=== PATIENT | male | born 1980 | race Caucasian/White ===

== ENCOUNTER 2021-01-07 12:53 | Outpatient (REF) | payer BC, SELFPAY ==
[2021-01-07 16:12] LABS: ALT 68 U/L (16-63); AST 24 U/L (15-37); Albumin 4.4 g/dL (3.4-5.0); Alkaline Phosphatase 53 U/L (46-116); Anion Gap 1.5 mmol/L (3-11); BUN 19 mg/dL (7-18); Bilirubin, Total 0.4 mg/dL (0.2-1.0); CO2 23.5 mmol/L (21.0-32.0); CREATININE 1.3 mg/dL (0.70-1.30); Calcium 9.1 mg/dL (8.5-10.1); Calculated LDL 137 mg/dL (<100); Chloride 105 mmol/L (98-107); Cholesterol 214 mg/dL (<200); Glucose 120 mg/dL (74-106); HDL Cholesterol 45 mg/dL (40-60); Potassium 4.2 mmol/L (3.5-5.1); Sodium 130 mmol/L (136-145); Total Protein 7.3 g/dL (6.4-8.2); Triglyceride 163 mg/dL (<150)
== END 2021-01-07 12:54 | disposition home or self-care (01) ==
LOC: NCHCN 12:53
PROVIDERS: PCP Nurse Practitioner Family; Visit Provider Nurse Practitioner
DX: Z00.00 Encounter for general adult medical examination without abnormal findings (principal); R51.9 Headache, unspecified; Z83.3 Family history of diabetes mellitus; Z13.220 Encounter for screening for lipoid disorders
CPT/HCPCS: 80053; 80061

== ENCOUNTER 2021-01-09 03:36 | Outpatient (CLI) | payer BC, SELFPAY ==
--- NOTE | 2021-01-09 09:30 | DI.CT_ITS ---
EXAM: CT HEAD WO CLINICAL HISTORY: HEADACHE,R51.9. TECHNIQUE: Imaging Protocol: Axial computed tomography images with coronal and sagittal reformatted images were created and reviewed COMPARISON: No exams were available for comparison FINDINGS: There is a prominent cisterna magna versus posterior fossa arachnoid cyst. No gross mass effect iden tified. The ventricular system is normal in appearance. No evidence of acute intracranial hemorrhage, mass effect, or midline shift. The orbital structures are unremarkable. The temporal bone structures appear intact. Calvarium: Normal. Visualized Paranasal sinuses/Mastoids: Clear. IMPRESSION: No evidence of acute intracranial process. 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 RADIATION DOSE DELIVERED: 926.35mGy.cm Total DLP 926.35mGy.cm Total DLP DATA REPOSITORY: All CT scans at this facility are submitted to the National Radiology Data Registry (NRDR) Dose Index Registry (DIR) with the [employer] (ACR). RADIATION OPTIMIZATION: All CT scans at this facility use at least one of these dose optimization te chniques: automated exposure control; mA and/or kV adjustment per patient size (includes targeted exa ms where dose is matched to clinical indication); or iterative reconstruction.
== END 2021-01-09 03:56 ==
PROVIDERS: PCP Nurse Practitioner Family; Visit Provider Nurse Practitioner
DX: R51.9 Headache, unspecified (principal)
CPT/HCPCS: 70450

== ENCOUNTER 2022-08-17 13:50 | Outpatient (REF) | payer BC, SELFPAY ==
[2022-08-19 10:49] LABS: Acrosom Defect 27.5 %; Appearance Normal; Container Type 50 mL Conical; Double Forms 1.5 %; Motile/Ejaculate 92.9 x10(6) (>=9.0); Motile/mL 185.8 x10(6) (>=6.0); Motility 62 % (>=40); Semen Volume 0.5 mL (>=1.5); Sperm/mL 299.7 x10(6) (>=15.0); Strict Morph NL 5.5 % (>=4.0); Study Type Semen; Tail Defect 20.5 %
== END 2022-08-17 13:51 | disposition home or self-care (01) ==
LOC: LBN 13:50
PROVIDERS: PCP Nurse Practitioner Family; Visit Provider Obstetrics & Gynecology Gynecology
DX: Z31.49 Encounter for other procreative investigation and testing (principal)
CPT/HCPCS: 89240; 89310

== ENCOUNTER 2023-05-16 23:37 | Emergency (ER) | payer BC, SELFPAY ==
[2023-05-16 23:42] VITALS: BP 141/89; PULSE 87; RESP 16; TEMP 36.3; O2SAT 95
--- NOTE | 2023-05-17 00:30 | DI.CT_ITS ---
Exam(s) CT ABDOMEN PELVIS W EXAM: CT ABDOMEN PELVIS W CLINICAL HISTORY: GI bleed, LUQ abdominal pain TECHNIQUE: Imaging Protocol: Axial computed tomography images with coronal and sagittal reformatted images were created and reviewed CONTRAST MATERIAL: Intravenous: Omnipaque 350 Contrast volume:100 mL Oral: No COMPARISON: CT ABD PELVIS WITH CONTRAST from 05/27/2012 FINDINGS: ABDOMEN: Liver: There is diffuse fatty infiltration of the liver. There is a paddle megaly. No measurable ma ss. Portal, Superior Mesenteric, and Splenic Veins: Unremarkable. Gallbladder and Biliary Tract: No radiodense calculus or dilation. The gallbladder is contracted. Pancreas: Normal density, no abnormal calcifications or inflammatory process. Spleen: Normal. Adrenals: No masses seen. Kidneys: Normal size, contour and axis. No radiodense stones or obstructive uropathy. No masses seen. Abdominal Aorta: Abdominal portion non-dilated. Bowel: No obstruction or bowel wall thickening. Appendix is unremarkable. Peritoneal Cavity: No ascites, collection or mesenteric inflammatory response. No free air. Lymph Nodes: Within normal limits. Bones: Within normal limits for the patient's age. Soft Tissues: There is a small fat containing umbilical hernia and a small fat containing left inguin al hernia. PELVIS: Bladder: Symmetric distention, no gross wall thickening. Reproductive Organs: Unremarkable as visualized. Lymph Nodes: Within normal limits. Bones: Within normal limits for the patient's age. IMPRESSION: No acute abdominal or pelvic process. RADIATION DOSE DELIVERED: 1,383.91mGy.cm Total DLP DATA REPOSITORY: All CT scans at this facility are submitted to the National Radiology Data Registry (NRDR) Dose Index Registry (DIR) with the [employer] (ACR). RADIATION OPTIMIZATION: All CT scans at this facility use at least one of these dose optimization te chniques: automated exposure control; mA and/or kV adjustment per patient size (includes targeted exa ms where dose is matched to clinical indication); or iterative reconstruction.
--- NOTE | 2023-05-17 00:45 | W.ED.GENAD ---
Discharge Plan Disposition Patient Disposition: Home Discharge Details Clinical Impression: Gastrointestinal bleeding, lower, Abdominal pain not caused by trauma Primary Care Provider: Silvia Todd ED Provider: Aundrea Abrams Home Meds and New Rx's Prescriptions: New omeprazole 40 mg capsule,delayed release(DR/EC) 40 mg PO DAILY Qty: 30 0RF Discontinued ibuprofen 800 MG tablet 800 mg PO TID Qty: 30 0RF Discharge Instructions Instructions: Gastrointestinal Bleeding (ED), Abdominal Pain (ED) Additional Instructions: 1. Call your primary care provider for follow-up appointment and recheck. You should be contacted by general surgery to arrange follow-up for the gastrointestinal bleeding. 2. Avoid nonsteroidal anti-inflammatories such as ibuprofen. You can take low-dose acetaminophen as needed for pain but you had a mild elevation of one of your liver enzymes and history of not overuse acetaminophen and you should avoid alcohol. 3. Consider repeating the Monospot test if your symptoms persist. 4. Start omeprazole daily as directed. 5. Return here for any new or worrisome symptoms such as dizziness, chest pain, fever, chills, worsening abdominal pain or any concerns. Discharge Data Discharge Physician: Aundrea Abrams Medical Decision Making This is a 43-year-old male in good health who presents with 1 week of intermittent bright red blood per rectum that was painless. Today he developed left upper quadrant pain which is aggravated by deep inspiration though he is not short of breath. The patient certainly could have diverticulitis, other concerns are gastric ulcers, AV malformation or food ingestion that discolors the stool. He is hemodynamically stable. His pain is pleuritic. He denies drinking. He denies any other bleeding or bruising. He has not been short of breath although the pain is aggravated by deep inspiration. My plan is to establish an IV and hydrate him. I will check a CBC comprehensive metabolic panel and a Monospot test. I will obtain a CTA of the chest to rule out PE and a CT of the abdomen and pelvis with IV contrast to rule out diverticular disease or any additional symptoms. He is declining any medications for pain though I have already offered him IV acetaminophen. If his work-up is unremarkable we will have him follow-up with general surgery for colonoscopy. If he has evidence of diverticulitis we will treat him with antibiotics. I will monitor his vital signs for hypotension. The patient does not have a primary care provider and if he is discharged home we will refer him to primary care as well as general surgery Differential Diagnosis Differential Diagnosis: Diverticulitis, pulmonary embolus, mononucleosis, AV malformation, coagulop Medical Records Medical records reviewed: Yes I reviewed the patient's medical records. Imaging Data Radiologic Study: Imaging: CT Scan Radiologist's impression: CT chest, noncontrast. No acute findings. Radiologic Study #2: Imaging: CT Scan Radiologist's impression: CT abdomen and pelvis with IV contrast vRad impression no acute findings HPI General Date/Time Provider Initiated Documentation: 05/17/23 00:41. Information obtained by: patient. History of Present Illness with intensity rated at 6. HPI Narrative: Time seen was 12:30 AM in bed 7. The patient is a fairly healthy 43-year-old male with no past medical history who does not have a primary care provider and has not seen a doctor in 2 years. 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 He tells me that over the past week he has had intermittent bright red blood mixed with stool about 5 times. The rectal bleeding was painless and he thinks he has had about an ounce of blood with each episode. He denies any other bleeding such as epistaxis or bleeding of his gums. He denies any easy bruising. He is not on any anticoagulants. This morning at about 8 AM he began having left upper quadrant abdominal pain which she describes as 6/10 in severity and aggravated by deep inspiration. He does have a history of environmental allergies and has been taking Monica. He tells me he has been taking it twice a day instead of once a day. He has no prior history of abdominal surgeries. He has never had a colonoscopy. His pain is aggravated by deep inspiration but he denies any shortness of breath or chest pain. No previous similar episodes. He has not taken any medication for the pain. He denies any trauma. No fevers or chills. No shortness of breath. No leg pain no leg swelling. Related Data Home Medications Medication Instructions Recorded Confirmed omeprazole 40 mg capsule,delayed 40 mg PO DAILY #30 caps 05/17/23 release Previous Rx's Medication Instructions Recorded omeprazole 40 mg capsule,delayed 40 mg PO DAILY #30 caps 05/17/23 release Allergies Allergy/AdvReac Type Severity Reaction Status Date / Time Sulfa (Sulfonamide Allergy Severe Hives Unverified 05/16/23 23:47 Antibiotics) General Stated Complaint: Abd Prob MARCO: 3 Review of Systems Narrative: see hpi PFSH All Active Problems (Updated 05/17/23 @ 03:06 by Aundrea Abrams MD) Gastrointestinal bleeding, lower (Acute) Abdominal pain not caused by trauma (Acute) Patient desires (Acute) Social History Smoking/Tobacco Use Status: Never Smoking risk assessment performed?: Yes Alcohol Intake: never Drug use: Never Substance use type: marijuana Do you feel safe at home: Yes Do you feel safe in your relationship?: Yes Exam Const General: cooperative, healthy appearing, comfortable, no acute distress, well developed, well groomed and well hydrated Nutritional Appearance: average body habitus and well nourished Orientation: alert, awake and oriented x3 HENMT Head: normal to inspection, normocephalic and atraumatic Ears: hearing grossly normal bilaterally and external ears normal General nose exam: external nose normal, nares normal and no nasal discharge Face and sinus: normal facial exam, sinuses nontender and face symmetric Mouth: oral mucosae normal, lip normal, tongue normal, oropharynx normal, moist mucous membranes and other (Normal phonation. The patient is handling secretions.) Throat: posterior oropharynx normal and uvula midline Other: There is a 3 cm smooth raised lesion on the right side of his tongue, which she states has been there for a year. There is no evidence of Arielle's angina or buccal cellulitis. Eyes General: appearance normal, both eyes and all related structures Eyelids: eyelids normal Conjunctivae: conjunctivae normal Sclera: sclerae normal Cornea: corneas normal Pupils: PERRL EOM: EOM intact bilaterally and No nystagmus Neck Neck: normal visual inspection, full ROM, no lymphadenopathy, no meningeal signs, trachea midline and supple Lymphatic: no lymphadenopathy noted Chest Chest: normal inspection of the chest Resp Effort & Inspection: normal respiratory effort, able to speak in complete sentences, no audible wheezes, no nasal flaring, no respiratory distress, no retractions, no stridor, not tachypneic, no tracheal deviation, no use of accessory muscles, No prolonged expiratory phase and other (Normal inspiratory to expiratory ratio.) Auscultation: clear to auscultation bilaterally, no rales, no rhonchi, no wheezes and no rubs Tactile Fremitus: tactile fremitus absent Cardio Jugular venous pressure: no JVD Palpation: normal PMI Rate: regular rate Rhythm: regular rhythm Heart Sounds: S1 normal, S2 normal, no gallops, no murmurs and no rubs GI Inspection: normal to inspection and non-distended Palpation: soft, no hepatosplenomegaly, no guarding and nontender Percussion: normal to percussion Auscultation: normal bowel sounds General: No CVA tenderness Other: Normal external genitalia. Testes are descended. No hernias. Back/Spine/Pelvis Back: no CVA tenderness and No back tenderness Cervical Spine: normal cervical lordosis, cervical ROM normal, No cervical muscular tenderness, No pain with cervical ROM, No cervical spinal tenderness and No step off deformity Thoracic/Lumbar Spine: thoracic and lumbar spine normal to inspection, No thoracic spinal tenderness and No lumbar spinal tenderness Pelvis: no pain with anterior-posterior compression and no pain with lateral compression Skin General skin exam: no rashes or lesions noted, turgor normal, no petechiae, no purpura and other (Skin is normal for ethnicity.) Lesions: no lesions Rashes: no rashes Trauma: no lacerations or abrasions Neuro General: patient alert, patient awake, patient oriented x3, moves all extremities, no meningeal signs, no focal motor deficits and CN's II-XI intact bilaterally Cranial Nerves: CN's II-XI intact bilaterally, PERRL, accommodation normal, EOM intact bilaterally, no nystagmus, facial strength normal, tongue midline, hearing normal and no nystagmus Cognition: normal cognition Speech: speech normal Gait: normal gait Motor: muscle tone normal throughout and strength 5/5 throughout Sensory Exam: no sensory deficits noted Extrem General: normal to inspection, full ROM, capillary refill normal, no clubbing, cyanosis or edema and no calf tenderness Psych Appearance: grossly normal Affect: normal affect Attitude: cooperative Thought Process: normal Thought Content: normal Insight: insight good Judgment: judgment good Other: The patient appears to have capacity make medical decisions. Course Reevaluation(s) Time: 03:01 Reevaluation: The patient was sleeping when I entered the room but feels improved. I discussed the results and advised him to follow-up with primary care and general surgery for the GI bleeding and with a dentist for the lesion on his tongue. I have advised him to avoid nonsteroidal anti-inflammatories and to take acetaminophen but not to take it excessively because his mild elevation of his ALT at 78 which may be normal for him Vital Signs Vital signs: Vital Signs Temperature 36.3 C L 05/16/23 23:42 Pulse 87 05/16/23 23:42 Respiratory Rate 16 05/16/23 23:42 Blood Pressure 141/89 H 05/16/23 23:42 Pulse Oximetry 95 05/16/23 23:42 Temperature 36.3 C L 05/16/23 23:42 Temperature Source Temporal Artery Scan 05/16/23 23:42 Pulse 87 05/16/23 23:42 Respiratory Rate 16 05/16/23 23:42 Respiratory Effort Normal, Non-Labored 05/16/23 23:48 Blood Pressure 141/89 H 05/16/23 23:42 Blood Pressure Position Sitting 05/16/23 23:42 Pulse Oximetry 95 05/16/23 23:42 Oxygen Delivery Method Room Air 05/16/23 23:42 Oxygen Flow Rate 0 05/16/23 23:42 Pain Level 6 05/16/23 23:42 Lab/Test Results Lab/Test Results: Mild elevation of glucose slight elevation of ALT. Normal H&H
--- NOTE | 2023-05-17 00:49 | DI.CT_ITS ---
Exam(s) CT CHEST WO EXAM: CT CHEST WO CLINICAL HISTORY: Pleuritic LUQ abdominal pain, GI bleed. TECHNIQUE: Imaging protocol: Axial computed tomography images were obtained and coronal and sagittal reformatted images were created and reviewed. COMPARISON: CT ABD PELVIS WITH CONTRAST from 05/27/2012 FINDINGS: Tracheobronchial tree: Patent where visualized. Pulmonary parenchyma: No consolidation or dominant measurable mass. No architectural distortion. Ther e is a 6 mm pleural based nodule in the lateral aspect of the left lower lobe. Mediastinum and Bri: No dominant adenopathy or fluid collection. The esophagus is unremarkable. Thyroid gland: Unremarkable. Pleura: No effusion or pneumothorax. Heart: The heart is not dilated. No coronary artery calcifications are seen. No pericardial effusion. Aorta: Thoracic aorta non-dilated. Upper abdomen: There is diffuse fatty infiltration of the liver. Lymph nodes: Within normal limits. Soft tissues: Unremarkable. Bones:Within normal limits for the patient's age. IMPRESSION: 1. No acute pulmonary process. 2. 6 mm pleural based nodule in the left lower lobe. In low risk patients, follow-up CT scan in 6-12 months is recommended. 3. In high risk patients (history of smoking or other risk factors), initial follow-up examination in 6-12 months and again in 18-24 months is recommended. (Shahzad et al, 2017). RADIATION DOSE DELIVERED: 595.53mGy.cm Total DLP 595.53mGy.cm Total DLP DATA REPOSITORY: All CT scans at this facility are submitted to the National Radiology Data Registry (NRDR) Dose Index Registry (DIR) with the [employer] (ACR). RADIATION OPTIMIZATION: All CT scans at this facility use at least one of these dose optimization te chniques: automated exposure control; mA and/or kV adjustment per patient size (includes targeted exa ms where dose is matched to clinical indication); or iterative reconstruction.
[2023-05-17 00:57] LABS: Lactate 1.1 mmol/L (0.6-1.4)
[2023-05-17 00:59] LABS: Abs Immature Grans 0.03 10^3/uL (0.0-0.06); Absolute Basophil Count 0.05 10^3/uL (0.0-0.2); Absolute Eosinophil Count 0.38 10^3/uL (0.0-0.7); Absolute Lymphocyte Count 3.85 10^3/uL (1.2-3.4); Absolute Monocyte Count 0.49 10^3/uL (0.1-0.8); Absolute Neutrophil Count 4.37 10^3/uL (1.2-6.7); Basophils % 0.5; Eosinophils % 4.1; HCT 42.6 % (40.0-50.0); HGB 14.5 g/dL (13.5-17.5); Immature Grans % 0.3; MCH 30.2 pg (27.0-33.0); MCV 89 fL (80-95); MPV 9.9 fL (8.0-11.0); Monocytes % 5.3; Neutrophils % 47.8; Platelet Count 265 10^3/uL (130-400); RDW 12.8 % (11.8-14.1); RDW-SD 41.5 fL; WBC 9.17 10^3/uL (4.4-10.8)
[2023-05-17] MEDS: Lactated Ringers 1,000 ML 125 ML IV (01:10)
[2023-05-17 01:12] LABS: INR 1.1 (0.9-1.1); Mono Screening Negative (Negative); Prothrombin Time 10.7 sec (9.3-11.0)
[2023-05-17 01:17] LABS: ALT 78 U/L (16-63); AST 33 U/L (15-37); Albumin 3.9 g/dL (3.4-5.0); Alkaline Phosphatase 59 U/L (46-116); BUN 16 mg/dL (7-18); Bilirubin, Total 0.4 mg/dL (0.2-1.0); CREATININE 1.3 mg/dL (0.70-1.30); Calcium 8.8 mg/dL (8.5-10.1); Chloride 103 mmol/L (98-107); Glucose 129 mg/dL (74-106); Lipase 47 U/L (16-77); Magnesium 2.1 mg/dL (1.8-2.4); Potassium 3.5 mmol/L (3.5-5.1); Sodium 138 mmol/L (136-145); Total Protein 6.9 g/dL (6.4-8.2); Troponin I < 50 ng/L (<or=60)
[2023-05-17] MEDS: Omnipaque 350 MG/ML 100 ML BTL IJ (01:21)
[2023-05-17] MEDS: Normal Saline Flush 10 ML SYR IVP (01:21)
[2023-05-17] MEDS: Normal Saline - Diluent 50 ML VIAL IJ (01:22)
[2023-05-17 01:24] LABS: Bilirubin Negative (Negative); Blood Negative (Negative); Clarity Clear (Clear); Glucose Negative (Negative); Ketones Negative (Negative); Leukocyte Esterase Negative (Negative); Nitrite Negative (Negative); Specific Gravity 1.015 (1.005-1.025); Urobilinogen 0.2 mg/dL (Up to 0.2)
--- NOTE | 2023-05-17 02:17 | DI.VRAD_ITS ---
PROCEDURE INFORMATION: Exam: CT Abdomen And Pelvis With Contrast Exam date and time: 05/17/2023 1:25 AM Age: 43 years old Clinical indication: Localized; Left upper quadrant (luq); Patient HX: Gi bleed, luq abdominal pain TECHNIQUE: Imaging protocol: Computed tomography of the abdomen and pelvis with contrast. Radiation optimization: All CT scans at this facility use at least one of these dose optimization techniques: automated exposure control; mA and/or kV adjustment per patient size (includes targeted exams where dose is matched to clinical indication); or iterative reconstruction. Contrast material: OMNIPAQUE 350; Contrast volume: 100 ml; Contrast route: INTRAVENOUS (IV); COMPARISON: No relevant prior studies available. FINDINGS: Liver: Hepatic steatosis. Gallbladder and bile ducts: Normal. No calcified stones. No ductal dilation. Pancreas: Normal. No ductal dilation. Spleen: Normal. No splenomegaly. Adrenal glands: Normal. No mass. Kidneys and ureters: Normal. No hydronephrosis. Stomach and bowel: Unremarkable. No obstruction. No mucosal thickening. Appendix: No evidence of appendicitis. Intraperitoneal space: Unremarkable. No free air. No significant fluid collection. Vasculature: Unremarkable. No abdominal aortic aneurysm. Lymph nodes: Unremarkable. No enlarged lymph nodes. Urinary bladder: Unremarkable as visualized. Reproductive: Unremarkable as visualized. Bones/joints: Unremarkable. No acute fracture. Soft tissues: Unremarkable. IMPRESSION: No acute finding. Dictated and Authenticated by: Greg Robles MD. Ordering:AL Guillaume MD
--- NOTE | 2023-05-17 02:19 | DI.VRAD_ITS ---
PROCEDURE INFORMATION: Exam: CT Chest Without Contrast; Diagnostic Exam date and time: 05/17/2023 1:48 AM Age: 43 years old Clinical indication: Left-sided; Patient HX: Pleuritic luq abdominal pain, gi bleed TECHNIQUE: Imaging protocol: Diagnostic computed tomography of the chest without contrast. 3D rendering (Not supervised by radiologist): MIP and/or 3D reconstructed images were created by the technologist. Radiation optimization: All CT scans at this facility use at least one of these dose optimization techniques: automated exposure control; mA and/or kV adjustment per patient size (includes targeted exams where dose is matched to clinical indication); or iterative reconstruction. COMPARISON: CT ABDOMEN PELVIS W 05/17/2023 1:25 AM FINDINGS: Lungs: Unremarkable. No consolidation. No masses. Pleural spaces: Unremarkable. No pneumothorax. No pleural effusion. Heart: Unremarkable. No cardiomegaly. No pericardial effusion. Lymph nodes: Unremarkable. No enlarged lymph nodes. Vasculature: Unremarkable. No aortic aneurysm. Liver: Hepatic steatosis. Spleen: Splenomegaly, clinically correlate. Bones/joints: Unremarkable. No acute fracture. Soft tissues: Unremarkable. IMPRESSION: No acute findings. Dictated and Authenticated by: Greg Robles MD. Ordering:AL Guillaume MD
[2023-05-17 03:18] VITALS: BP 138/84; PULSE 82; RESP 16; O2SAT 96
--- NOTE | 2023-05-17 03:18 | NUR.NOTE ---
Referral faxed to [facility] and patients pcp Silvia Todd for abd pain/gi bleed follow up.Nursing Note:
== END 2023-05-17 03:19 | disposition home or self-care (01) ==
PROVIDERS: Emergency Provider Emergency Medicine Emergency Medical Services; PCP Nurse Practitioner Family
DX: K92.2 Gastrointestinal hemorrhage, unspecified (principal); R10.12 Left upper quadrant pain
CPT/HCPCS: 36415; 71250; 80053; 83690; 96360; 96361; 99285; 74177; 81003; 83605; 83735; 84484; 85025; 85610; 86308; 99284; J3490

== ENCOUNTER 2023-06-30 12:49 | Outpatient (REF) | payer BC, SELFPAY ==
--- NOTE | 2023-06-30 12:05 | TONG_PTH ---
PATIENT: Praful Perez LOC: [facility] U#:[id number] AGE/SX: 43/M ROOM: RE06/30/[address]: Lisa Flower : 1980 BED: DIS: 06/30/2023 SPEC #: [id number] RECD: 06/30/23 16:38 STATUS: SAIDA LAMAR #: [id number] SREEDHAR: 06/30/23 12:[address]: Lisa Flower DEPT: Surgical Specimen RECD BY: Chloé Franco ENTERED: 06/30/23 16:39 SP TYPE: GARY CARBAJAL DR: GARFIELD TORRES NP Tissues: 1 - TONGUE BIOPSY Procedures: GROSS AND MICRO LEVEL 4 SPECIAL STAIN 1 Comments: [id number]
== END 2023-06-30 12:50 | disposition home or self-care (01) ==
LOC: LBN 12:49
PROVIDERS: PCP Nurse Practitioner Family; Visit Provider Registered Nurse Maternal Newborn
DX: D10.1 Benign neoplasm of tongue (principal); K14.0 Glossitis
CPT/HCPCS: 88305; 88312

== ENCOUNTER 2023-11-29 14:37 | Outpatient (REF) | payer BC, SELFPAY ==
[2023-11-29 19:19] LABS: HCT 46.4 % (40.0-50.0); HGB 15.6 g/dL (13.5-17.5); MCH 29.7 pg (27.0-33.0); MCHC 33.6 % (32.0-36.0); MCV 88 fL (80-95); MPV 10.5 fL (8.0-11.0); Platelet Count 268 10^3/uL (130-400); RBC 5.25 10^6/uL (4.36-5.78); RDW-SD 42.2 fL; WBC 6.55 10^3/uL (4.4-10.8)
[2023-11-29 19:28] LABS: ALT 115 U/L (16-63); AST 70 U/L (15-37); Albumin 4.2 g/dL (3.4-5.0); Alkaline Phosphatase 68 U/L (46-116); BUN 20 mg/dL (7-18); Bilirubin, Total 0.3 mg/dL (0.2-1.0); CREATININE 1.2 mg/dL (0.70-1.30); Calcium 9.4 mg/dL (8.5-10.1); Calculated LDL 156 mg/dL (<100); Chloride 105 mmol/L (98-107); Cholesterol 231 mg/dL (<200); Estimated GFR 76.95 (mL/min/1.73m2); Glucose 162 mg/dL (74-106); HDL Cholesterol 46 mg/dL (40-60); Potassium 4.3 mmol/L (3.5-5.1); Sodium 140 mmol/L (136-145); Total Protein 7.6 g/dL (6.4-8.2); Triglyceride 145 mg/dL (<150)
[2023-11-29 19:41] LABS: Hemoglobin A1C 6.7 % (<5.7)
== END 2023-11-29 14:38 | disposition home or self-care (01) ==
LOC: NCHCN 14:37
PROVIDERS: PCP Nurse Practitioner Family; Visit Provider Nurse Practitioner Family
DX: Z00.00 Encounter for general adult medical examination without abnormal findings (principal); E78.5 Hyperlipidemia, unspecified; R73.9 Hyperglycemia, unspecified; E66.8 Other obesity; Z68.37 Body mass index [BMI] 37.0-37.9, adult
CPT/HCPCS: 80053; 80061; 85027; 83036

== ENCOUNTER 2024-04-17 14:26 | Outpatient (CLI) | payer BC, SELFPAY ==
--- NOTE | 2024-04-17 14:15 | RT.EKG_ITS ---
APPROVED REPORT Exam: Resting ECG Reason for Exam: chest discomfort Patient Location: O HR:74 bpm ECG Measurements Heart Rate 74 AXIS IA 121 P 13 QRSd 91 QRS 55 QT 373 T 46 QTc 414 Conclusion Sinus rhythm...normal P axis, V-rate 50- 99 Inferolateral infarct, acute...ST>.10mV, inf-lat leads Borderline ST elevation, anterior leads...ST >0.15mV in V1-V4
== END 2024-04-17 14:27 | disposition home or self-care (01) ==
LOC: DI.CM 14:27
PROVIDERS: PCP Nurse Practitioner Family; Visit Provider Physician Assistant
DX: R07.89 Other chest pain (principal)
CPT/HCPCS: 93010

== ENCOUNTER 2024-04-17 15:11 | Inpatient (IN) | payer BC, SELFPAY ==
[2024-04-17] VITALS (63 sets, daily range): BP systolic 120–162; BP diastolic 54–102; PULSE 72–102; RESP 10–27; TEMP 37.1; O2SAT 91–98
--- NOTE | 2024-04-17 15:00 | RT.EKG_ITS ---
APPROVED REPORT Exam: Resting ECG Reason for Exam: chest pain Patient Location: E HR:83 bpm ECG Measurements Heart Rate 83 AXIS NV 118 P 28 QRSd 93 QRS 47 QT 355 T 34 QTc 410 Conclusion Sinus rhythm...normal P axis, V-rate 60- 99 Ventricular premature complex...V complex w/ short R-R interval Probable inferior infarct, acute...ST>0.10mV, II III aVF ST elevation, consider anterolateral injury...ST >0.15mV, I aVL V2-V6 PHysician: diffuse mild elevation without recip depression. Does not meet STEMI criterion
--- NOTE | 2024-04-17 15:00 | DI.RAD_ITS ---
Exam(s) XR PORTABLE CHEST AP EXAM: XR PORTABLE CHEST AP CLINICAL HISTORY: chest pain TECHNIQUE: 2D digital imaging was performed of the chest. One image was obtained. An AP view was ob tained. COMPARISON: CT CT CHEST WO from 05/17/2023 FINDINGS: MEDIASTINUM: Normal. HEART: Normal. PULMONARY VASCULATURE: Normal. LUNGS: Clear. PLEURAL SPACE: No pleural effusion or pneumothorax. BONE:Within normal limits for the patient's age. OTHER FINDINGS:Normal. IMPRESSION: No acute pulmonary findings. DATA REPOSITORY: RADIATION DOSE DELIVERED:
[2024-04-17 15:34] LABS: Abs Immature Grans 0.04 10^3/uL (0.0-0.06); Absolute Basophil Count 0.05 10^3/uL (0.0-0.2); Absolute Eosinophil Count 0.04 10^3/uL (0.0-0.7); Absolute Lymphocyte Count 1.37 10^3/uL (1.2-3.4); Absolute Monocyte Count 0.82 10^3/uL (0.1-0.8); Absolute Neutrophil Count 10.56 10^3/uL (1.2-6.7); Basophils % 0.4 %; Eosinophils % 0.3 %; HCT 43.4 % (40.0-50.0); HGB 14.9 g/dL (13.5-17.5); Immature Grans % 0.3 %; Lymphocytes % 10.6 %; MCH 29.8 pg (27.0-33.0); MCHC 34.3 % (32.0-36.0); MCV 87 fL (80-95); MPV 9.9 fL (8.0-11.0); Monocytes % 6.4 %; Platelet Count 361 10^3/uL (130-400); RDW 12.5 % (11.8-14.1); RDW-SD 39.8 fL; WBC 12.88 10^3/uL (4.4-10.8)
[2024-04-17 15:46] LABS: INR 1.1 (0.9-1.1); PTT Activated 28.7 sec (23.6-32.8); Prothrombin Time 11.1 sec (9.1-11.1)
[2024-04-17 15:56] LABS: ESR 24 mm/hr (0-15)
[2024-04-17 16:02] LABS: ALT 38 U/L (16-63); AST 18 U/L (15-37); Albumin 3.5 g/dL (3.4-5.0); Alkaline Phosphatase 54 U/L (46-116); Anion Gap 11.2 mmol/L (3-11); BUN 18 mg/dL (7-18); Bilirubin, Total 0.57 mg/dL (0.2-1.0); CO2 22.8 mmol/L (21.0-32.0); CREATININE 1.3 mg/dL (0.70-1.30); Calcium 8.9 mg/dL (8.5-10.1); Chloride 103 mmol/L (98-107); Glucose 161 mg/dL (74-106); NT-proBNP 86 pg/mL (<300); Potassium 3.7 mmol/L (3.5-5.1); Sodium 137 mmol/L (136-145); Troponin I < 50 ng/L (< or =60)
[2024-04-17 16:10] LABS: C-Reactive Protein 3.36 mg/dL (<or=0.5)
[2024-04-17] MEDS: ACETAMINOPHEN 1,000 MG/100 ML BTL 400 MG IVPB (16:19)
[2024-04-17] MEDS: Ondansetron 4 MG/2 ML VIAL (16:19)
[2024-04-17] MEDS: MORPHine 4 MG/ML SYR IVP (16:19)
[2024-04-17 16:25] LABS: COVID-19 PCR Negative (Negative); Influenza A PCR Negative (Negative); Influenza B PCR Negative (Negative); RSV PCR Negative (Negative)
[2024-04-17 16:27] LABS: Source Nasopharynx
[2024-04-17] MEDS: diphenhydrAMINE 50 MG/ML VIAL (16:28)
[2024-04-17] MEDS: Loratidine 10 MG TAB PO (16:59)
--- NOTE | 2024-04-17 17:45 | RT.EKG_ITS ---
APPROVED REPORT Exam: Resting ECG Reason for Exam: chest pain Patient Location: E HR:81 bpm ECG Measurements Heart Rate 81 AXIS [place] 114 P 28 QRSd 92 QRS 50 QT 366 T 34 QTc 424 Conclusion Sinus rhythm...normal P axis, V-rate 60- 99 Inferolateral infarct, acute...ST>.10mV, inf-lat leads Borderline ST elevation, anterior leads...ST >0.15mV in V1-V4 Phyician: diffuse st elevation without recip st depressions. Does not meet STEMI criterion
--- NOTE | 2024-04-17 17:50 | W.ED.GENAD ---
Discharge Plan Disposition Patient Disposition: Admit to [facility] Condition: Stable Discharge Details Chief Complaint: Chest Pain Clinical Impression: Pericarditis in diseases classified elsewhere, Pleuritic chest pain Admit Date/Time: 04/17/24 19:58 Admit Provider: Porter Story Attending Provider: Porter Story Primary Care Provider: GARFIELD TORRES ED Provider: Arsenio John Discharge Data Discharge Date/Time-TO BE ENTERED AT DEPARTURE: 04/17/24 21:27 HPI General Date/Time Provider Initiated Documentation: 04/17/24 15:25. HPI Narrative: 43-year-old male with a past medical history of intermittent anxiety and panic attacks, presents today for evaluation of chest pain. Patient states that about 1.5 weeks ago he had a notable episode of vomiting and a viral illness. That eventually got better, and then 4 days ago on Tuesday he developed central chest tightness and achy sensation. It eventually got better on its own without any significant intervention after lasting about a day. Symptoms then returned this morning at 7 AM. He had gone down to let the dog out, walk back up the stairs and then noticed the pain. Pain continued throughout the morning and he went to the primary care office. While there an EKG was done which was read as STEMI. EMS was called and the patient was brought to the ER for further assessment. He was given 325 aspirin and route. Currently he describes it as a heavy aching sensation in his central chest with shortness of breath, he denies any pleuritic component. He denies any history of PEs. He denies any tearing or ripping sensation. He denies fever or chills. Pain is not improved with sitting up or leaning forward. He did not take any medication for the pain. Denies PE risk factors such as recent long car rides, immobilization, recent surgery, prior history of DVT or PE, family history of PE or DVT, morbid obesity, exogenous estrogen and smoking, hemoptysis, history of cancer. He does not smoke. No history of diabetes or hypertension. No other complaints at this time. Related Data Home Medications Medication Instructions Recorded Confirmed cetirizine 10 mg tablet 10 mg PO DAILY PRN 06/29/23 04/17/24 Allergies Allergy/AdvReac Type Severity Reaction Status Date / Time Sulfa (Sulfonamide Allergy Severe Hives Unverified 04/17/24 16:28 Antibiotics) morphine Allergy Mild Hives Verified 04/17/24 16:28 Penicillins Allergy Hives Verified 04/17/24 16:28 General Stated Complaint: Chest Pain MARCO: 2 Review of Systems All systems reviewed & are unremarkable except as noted in HPI and below Exam Narrative Exam Narrative: 1.Const: Well-nourished, Well-developed, appearing stated age 2.Eyes: PERRL, no conjunctival injection, and symmetrical lids. 3.ENT: Atraumatic external nose and ears. Dry MM. Neck: Symmetric, trachea midline, No thyromegaly. 4.CVS: +S1/S2, No murmurs or gallops. Peripheral pulses 2+ and equal in all extremities. Brisk capillary refill in all extremities. 5.RESP: Unlabored respiratory effort. Clear to auscultation bilaterally. No wheezes rales or rhonchi. No significant reproducible component on palpation of the anterior chest wall. No signs of shingles 6.GI: Soft, Nontender/Nondistended, No hepatosplenomegaly. No guarding or rebound. 7.MSK: Normocephalic/Atraumatic, Extremities w/o deformity or ttp No cyanosis or clubbing, Normal movement of all extremities 8.Skin: Warm, Dry. No rashes or lesions. 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 Sensation grossly intact, no focal neurologic deficits. 10.Psych: (AAO) x3. Appropriate mood and affect Course Vital Signs Vital signs: Vital Signs Temperature 37.1 C 04/17/24 15:13 Pulse 84 04/17/24 15:13 Respiratory Rate 19 04/17/24 15:13 Blood Pressure 154/54 H 04/17/24 15:13 Pulse Oximetry 98 04/17/24 15:13 Temperature 37.1 C 04/17/24 15:13 Temperature Source Tympanic 04/17/24 15:13 Pulse 79 04/17/24 16:45 Pulse 86 04/17/24 16:50 Respiratory Rate 13 04/17/24 16:50 Respiratory Effort Short of Breath 04/17/24 15:23 Blood Pressure 142/93 H 04/17/24 16:45 Blood Pressure Mean 109 04/17/24 16:45 Pulse Oximetry 95 04/17/24 16:50 Oxygen Delivery Method Room Air 04/17/24 15:29 Oxygen Flow Rate 0 04/17/24 15:29 Pain Level 6 04/17/24 17:00 Lab/Test Results Lab/Test Results: Laboratory Tests Range/Units 04/17/24 04/17/24 04/17/24 15:25 15:25 15:44 WBC (4.4-10.8) 10^3/uL 12.88 H RBC (4.36-5.78) 10^6/uL 5.00 Hgb (13.5-17.5) g/dL 14.9 Hct (40.0-50.0) % 43.4 MCV (80-95) fL 87 MCH (27.0-33.0) pg 29.8 MCHC (32.0-36.0) % 34.3 RDW (11.8-14.1) % 12.5 Plt Count (130-400) 10^3/uL 361 MPV (8.0-11.0) fL 9.9 Immature Gran % % 0.3 Neutrophils % % 82.0 Lymphocytes % % 10.6 Monocytes % % 6.4 Eosinophils % % 0.3 Basophils % % 0.4 Nucleated RBC % (0.0-0.3) % 0.0 Absolute Neutrophils (1.2-6.7) 10^3/uL 10.56 H Absolute Lymphocytes (1.2-3.4) 10^3/uL 1.37 Absolute Monocytes (0.1-0.8) 10^3/uL 0.82 H Absolute Eosinophils (0.0-0.7) 10^3/uL 0.04 Absolute Basophils (0.0-0.2) 10^3/uL 0.05 ESR (0-15) mm/hr 24 H PT (9.1-11.1) sec 11.1 INR (0.9-1.1) 1.1 APTT (23.6-32.8) sec 28.7 Sodium (136-145) mmol/L 137 Potassium (3.5-5.1) mmol/L 3.7 Chloride (98-107) mmol/L 103 Carbon Dioxide (21.0-32.0) mmol/L 22.8 Anion Gap (3-11) mmol/L 11.2 H BUN (7-18) mg/dL 18 Creatinine (0.70-1.30) mg/dL 1.3 Est GFR (CKD-EPI 2020) (mL/min/1.73m2) 69.90 Glucose (74-106) mg/dL 161 H Calcium (8.5-10.1) mg/dL 8.9 Magnesium (1.8-2.4) mg/dL 2.0 Total Bilirubin (0.2-1.0) mg/dL 0.57 AST (15-37) U/L 18 ALT (16-63) U/L 38 Alkaline Phosphatase (46-116) U/L 54 Troponin I (< or =60) ng/L < 50 C-Reactive Protein (<or=0.5) mg/dL 3.36 H NT-Pro-B Natriuret Pep (<300) pg/mL 86 Cancelled Total Protein (6.4-8.2) g/dL 7.0 Albumin (3.4-5.0) g/dL 3.5 COVID-19 Source Nasopharynx SARS-CoV-2 (PCR) (Negative) Negative Influenza Type A (PCR) (Negative) Negative Influenza Type B (PCR) (Negative) Negative RSV (PCR) (Negative) Negative Medical Decision Making 43-year-old male with a past medical history of intermittent anxiety and panic attacks, presents today for evaluation of chest pain. Patient states that about 1.5 weeks ago he had a notable episode of vomiting and a viral illness. That eventually got better, and then 4 days ago on Tuesday he developed central chest tightness and achy sensation. It eventually got better on its own without any significant intervention after lasting about a day. Symptoms then returned this morning at 7 AM. He had gone down to let the dog out, walk back up the stairs and then noticed the pain. Pain continued throughout the morning and he went to the primary care office. While there an EKG was done which was read as STEMI. EMS was called and the patient was brought to the ER for further assessment. He was given 325 aspirin and route. Currently he describes it as a heavy aching sensation in his central chest with shortness of breath, he denies any pleuritic component. He denies any history of PEs. He denies any tearing or ripping sensation. He denies fever or chills. Pain is not improved with sitting up or leaning forward. He did not take any medication for the pain. Denies PE risk factors such as recent long car rides, immobilization, recent surgery, prior history of DVT or PE, family history of PE or DVT, morbid obesity, exogenous estrogen and smoking, hemoptysis, history of cancer. He does not smoke. No history of diabetes or hypertension. No other complaints at this time. Exam demonstrates well-appearing male, vital signs stable. Radial pulses +2 bilaterally. No pitting edema, no calf tenderness. EKG shows minimal elevation in 2, 3, and aVF, no reciprocal depression though. Mild diffuse elevation in the anterior leads as well without reciprocal depression. Timing and EKG findings are slightly atypical for STEMI. They appear more concerning for questionable pericarditis. No S1Q3T3. PE less likely. Symptoms appear inconsistent with dissection. Will treat with Tylenol, will avoid nitroglycerin secondary to the inferior components noted on EKG. We will get an x-ray, monitor closely and reassess. 7 PM Initial laboratory workup has returned, mild white count of 12, D-dimer normal with no suggestion of PE, ESR and CRP mildly elevated, bedside echo was performed demonstrates mild pericardial effusion measured at 1 cm. Troponin normal, repeat troponin normal. EKG remained stable, COVID flu and RSV negative. Chest x-ray negative for acute process. I contacted [facility] and discussed the case with Dr. Garrett, he is concerned that the patient's symptoms are indicative of pericarditis which I would agree. Symptoms at this time appear inconsistent with ACS or STEMI. Patient's recent illness a week ago certainly may have brought about a mild pericardial effusion and potential pericarditis. Patient was given Toradol and did have some mild relief, aspirin was also given. [facility] recommendations are for formal echo. No beds available for transfer at this time. Patient remains hemodynamically stable. No indication for heparinization at this time. Case was discussed with hospitalist Dr. Story, he agrees with the assessment and plan. Quality:SDOH Health Related Social Needs: No Data to Display PFSH All Active Problems (Updated 04/17/24 @ 23:59 by Arsenio John DO) Hyperglycemia without ketosis (Chronic) Pleuritic chest pain (Acute) Pericarditis in diseases classified elsewhere (Acute) Tongue lesion (Acute) Patient desires (Acute) Medical History Hematochezia Umbilical hernia Family history of diabetes mellitus Inguinal hernia, left Solitary lung nodule Tongue lump Seasonal allergies Rib pain Social History Smoking/Tobacco Use Status: Never Smoking risk assessment performed?: Yes Alcohol Intake: never Drug use: Never Substance use type: marijuana Housing: house Current gender identity: male Do you feel safe at home: Yes Do you feel safe in your relationship?: Yes
[2024-04-17] MEDS: Ketorolac 30 MG/ML VIAL IVP (18:10)
[2024-04-17 18:24] LABS: D-Dimer 452 ng/mlFEU (<500)
[2024-04-17 19:23] LABS: Troponin I < 50 ng/L (< or =60)
--- NOTE | 2024-04-17 19:55 | W.PM.HP.N ---
Date of service: 04/17/24 Time of Service: 19:55 Assessment and Plan Assessment and plan (1) Pericarditis in diseases classified elsewhere: Start date: 04/17/24 Status: Acute Assessment and plan: This is a 43-year-old gentleman presenting with pleuritic type sharp chest discomfort which is retrosternal and nonradiating. It is nonpositional but worse with exertion. He also has associated shortness of breath and nausea. He has a history of having similar chest pain but less severe with nausea associated with panic symptoms. He is not on any chronic medications for panic disorder. He does take Zyrtec for allergies. He did have a slight allergic reaction to morphine when in the ED which is a new allergy. He is having discomfort not controlled by ibuprofen or colchicine which is just being initiated. He will have a trial of fentanyl IV for pain management to make him comfortable for sleeping tonight. [facility] cardiology was consulted by the ED provider and recommended oral treatment for pericarditis and trending troponins with cardiac monitoring overnight. He was initiated on colchicine 0.6 mg twice daily which should be continued for 3 months and ibuprofen 800 mg 3 times a day which can be slowly weaned by 200 mg per dose over 2 weeks until he is having less pain. Echocardiogram will be performed the morning with small (1 cm) pericardial effusion seen on POCUS exam in the ED. There is no evidence of tamponade and his case of pericarditis, which may be secondary to a recent viral infection, appears to be mild with only mild elevations in WBC, CRP and sed rate and having no fever or positive troponins. EKG will be followed up in the morning. He is a full code. (2) Pleuritic chest pain: Start date: 04/17/24 Status: Acute Assessment and plan: This appears to be associate with acute pericarditis secondary to recent viral infection. Further investigations if not improving. Trend inflammatory markers. (3) Hyperglycemia without ketosis: Status: Chronic Assessment and plan: With high BMI most likely is insulin resistance. Monitor with glucometer before meals and at bedtime without coverage for now. Check hemoglobin A1c. History of Present Illness History of Present Illness Chief Complaint: Chest pain with dyspnea upon exertion and nausea Narrative: This is a 43-year-old male patient who had a viral 2 weeks ago which was mostly associated with nausea and vomiting as well as low-grade fever. He was slightly improved and then 4 days prior to presentation to the ED he developed central chest tightness and discomfort which was not positional and was intermittent and seem to get better without interventions. On the morning of admission the patient was walking back exercises when he noticed the pain having with exertion and he was short of breath with returning nausea. There was a pleuritic component to the pain. He also has some tenderness to palpation of the chest during my exam upon admission which he did not mention to the ED provider. Chest discomfort was intermittent but was significant enough for him to see his PCP with an EKG performed in the office being read as a STEMI. Patient was sent to the ED via EMS for immediate evaluation. In the ED he was assessed as presentation of pericarditis with follow-up EKG changes consistent with pericarditis and not a STEMI. POCUS exam in the ED revealed a small, 1 cm pericardial effusion with formal echocardiogram advised by [facility] cardiology in consultation. [facility] cardiology also advised initiation of treatment for pericarditis with colchicine and NSAIDs. He also will have troponins trended and telemetry with monitoring of symptoms with medication management overnight. He appears to have a mild case of pericarditis most likely will require transfer or prolonged hospital stay. His is very concerned his diagnosis will need counseling in the morning. Patient is overweight but on minimal medications taking Zyrtec for allergies. He also has frequent panic symptoms similar to his chest discomfort but less severe. The patient usually is active without restrictions. He is a full code. Review of Systems Narrative: 13 point review of systems otherwise unrevealing or stable. Patient has never had an allergic reaction to opioids as he had to morphine in the ED. PFSH All Active Problems (Updated 04/17/24 @ 23:59 by Arsenio John DO) Hyperglycemia without ketosis (Chronic) Pleuritic chest pain (Acute) Pericarditis in diseases classified elsewhere (Acute) Tongue lesion (Acute) Patient desires (Acute) Medical History Hematochezia Umbilical hernia Family history of diabetes mellitus Inguinal hernia, left Solitary lung nodule Tongue lump Seasonal allergies Rib pain Social History Smoking/Tobacco Use Status: Never Smoking risk assessment performed?: Yes Alcohol Intake: never Drug use: Never Substance use type: marijuana Housing: house Current gender identity: male Do you feel safe at home: Yes Do you feel safe in your relationship?: Yes Meds Allergies and Home Medications Allergies Allergy/AdvReac Type Severity Reaction Status Date / Time Sulfa (Sulfonamide Allergy Severe Hives Unverified 04/17/24 16:28 Antibiotics) morphine Allergy Mild Hives Verified 04/17/24 16:28 Penicillins Allergy Hives Verified 04/17/24 16:28 Home Medications Medication Instructions Recorded Confirmed Type cetirizine 10 mg tablet 10 mg PO DAILY PRN 06/29/23 04/17/24 History Exam Narrative Exam Narrative: General: Patient appears appropriate for age, moderately obese but also mesomorphic. He is in no acute distress. Alert and oriented x 3. HEENT: Normocephalic, eyes with pupils equal and reactive light symmetric, extraocular movement intact and sclera anicteric. Oropharynx with moist mucosa and good dentition. Neck: Supple without JVD. Back: Stooped posture without CVA tenderness. Lungs: Good aeration with normal vesicular breath sounds diffusely, no expiratory wheeze. No focalizing rales or rhonchi. Heart: Regular rate and rhythm with no appreciable murmur, gallop or rub. Patient was examined sitting up and leaning forward with still no pericardial rub appreciated. Abdomen: Obese contour, soft and nontender to palpation with no palpable hepatosplenomegaly. Genitalia/rectal: Exam deferred. Extremities: Without clubbing, cyanosis or pitting edema. Peripheral pulses intact. Skin: Normal color, warm and dry. No appreciable rashes at time of my exam with patient having slight hives over his right arm after receiving morphine in the ED. Neuro: Cranial nerves II to XII gross intact, no focalizing motor deficits and no tremor. Psych: Normal affect and mood. No abnormal thought processes. Remote and recent memory intact. Results Imaging Imaging Studies: EXAM: XR PORTABLE CHEST AP CLINICAL HISTORY: chest pain TECHNIQUE: 2D digital imaging was performed of the chest. One image was obtained. An AP view was obtained. COMPARISON: CT CT CHEST WO from 05/17/2023 FINDINGS: MEDIASTINUM: Normal. HEART: Normal. PULMONARY VASCULATURE: Normal. LUNGS: Clear. PLEURAL SPACE: No pleural effusion or pneumothorax. BONE:Within normal limits for the patient's age. OTHER FINDINGS:Normal. IMPRESSION: No acute pulmonary findings. Labs 04/17/24 15:25 04/17/24 15:25 Labs: Laboratory Results - last 24 hr 04/17/24 04/17/24 04/17/24 15:25 15:25 15:44 WBC 12.88 H RBC 5.00 Hgb 14.9 Hct 43.4 MCV 87 MCH 29.8 MCHC 34.3 RDW 12.5 Plt Count 361 MPV 9.9 Immature Gran % 0.3 Neutrophils % 82.0 Lymphocytes % 10.6 Monocytes % 6.4 Eosinophils % 0.3 Basophils % 0.4 Nucleated RBC % 0.0 Absolute Neutrophils 10.56 H Absolute Lymphocytes 1.37 Absolute Monocytes 0.82 H Absolute Eosinophils 0.04 Absolute Basophils 0.05 ESR 24 H PT 11.1 INR 1.1 APTT 28.7 D-Dimer 452 Sodium 137 Potassium 3.7 Chloride 103 Carbon Dioxide 22.8 Anion Gap 11.2 H BUN 18 Creatinine 1.3 Est GFR (CKD-EPI 2020) 69.90 Glucose 161 H Calcium 8.9 Magnesium 2.0 Total Bilirubin 0.57 AST 18 ALT 38 Alkaline Phosphatase 54 Troponin I < 50 C-Reactive Protein 3.36 H NT-Pro-B Natriuret Pep 86 Cancelled Total Protein 7.0 Albumin 3.5 COVID-19 Source Nasopharynx SARS-CoV-2 (PCR) Negative Influenza Type A (PCR) Negative Influenza Type B (PCR) Negative RSV (PCR) Negative 04/17/24 04/17/24 18:22 19:00 WBC RBC Hgb Hct MCV MCH MCHC RDW Plt Count MPV Immature Gran % Neutrophils % Lymphocytes % Monocytes % Eosinophils % Basophils % Nucleated RBC % Absolute Neutrophils Absolute Lymphocytes Absolute Monocytes Absolute Eosinophils Absolute Basophils ESR PT INR APTT D-Dimer Sodium Potassium Chloride Carbon Dioxide Anion Gap BUN Creatinine Est GFR (CKD-EPI 2020) Glucose Calcium Magnesium Total Bilirubin AST ALT Alkaline Phosphatase Troponin I Cancelled < 50 C-Reactive Protein NT-Pro-B Natriuret Pep Total Protein Albumin COVID-19 Source SARS-CoV-2 (PCR) Influenza Type A (PCR) Influenza Type B (PCR) RSV (PCR) Last Vital Signs Temp 37.1 C 04/17/24 15:13 Pulse 83 04/17/24 19:04 Resp 15 04/17/24 19:30 BP 149/95 H 07/09/24 19:04 Pulse Ox 94 04/17/24 19:30 Time Spent Time spent with Patient: >75 minutes Time was spent: preparing to see the patient(eg.review tests), obtaining and/or reviewing separately otained hiistory, ordering medications,tests, procedures, referring, communicating with other health career development engineer, indepentently interpreting results and counseling the patient
[2024-04-17 20:45] LABS: Hemoglobin A1C 6.4 % (<5.7)
[2024-04-17] MEDS: Acetaminophen 325 MG TAB PO (22:05)
[2024-04-17] MEDS: Normal Saline Flush 10 ML SYR IVP ×3 (22:06→23:13)
[2024-04-17] MEDS: Ondansetron 4 MG/2 ML VIAL IM (23:09)
[2024-04-17] MEDS: Ibuprofen 800 MG TAB PO (23:12)
[2024-04-17] MEDS: Colchicine 0.6 MG TAB PO (23:13)
[2024-04-17] MEDS: fentaNYL 100 MCG/2 ML VIAL 50 MCG IVP (23:19)
[2024-04-17 23:57] LABS: Troponin I < 50 ng/L (< or =60)
[2024-04-18 00:03] LABS: TSH (W/Ref FT4) 2.42 uIU/mL (0.36-3.74)
--- NOTE | 2024-04-18 00:16 | W.PC.ACHO ---
Registration Status: ADM IN Primary Language: Preferred Language: Slovak ED Information & Data Chief Complaint Chest Pain 04/17/24 17:52 Medical / Surgical History (Last Reviewed 04/17/24 @ 19:55 by Porter Story) Hematochezia Umbilical hernia Family history of diabetes mellitus Inguinal hernia, left Solitary lung nodule Tongue lump Seasonal allergies Rib pain Most Recent Vital Signs Temperature 37.1 C 04/17/24 21:47 Temperature Source Tympanic 04/17/24 15:13 Pulse 91 H 04/17/24 21:47 Pulse Rhythm Regular 04/17/24 21:47 Pulse 102 H 04/17/24 21:34 Respiratory Rate 19 04/17/24 21:47 Respiratory Effort Short of Breath 04/17/24 21:47 Respiratory Depth Shallow 04/17/24 21:47 Respiratory Pattern Normal 04/17/24 21:47 Blood Pressure 133/96 H 04/17/24 21:47 Blood Pressure Mean 103 04/17/24 21:07 Pulse Oximetry 95 04/17/24 21:47 Oxygen Delivery Method Room Air 04/17/24 21:47 Oxygen Flow Rate 0 04/17/24 21:47 Pain Level 5 04/18/24 00:10 Allergies Sulfa (Sulfonamide Antibiotics) Allergy (Severe, Unverified 04/17/24 16:28) Hives morphine Allergy (Mild, Verified 04/17/24 16:28) Hives Penicillins Allergy (Verified 04/17/24 16:28) Hives Active Medications Generic Name Dose Route Start Last Admin Trade Name Freq PRN Reason Stop Dose Admin Acetaminophen 0 mg 04/17/24 19:57 04/17/24 22:05 Acetaminophen 325 Mg Tab PO 650 mg Q4H PRN PRN Administration Fentanyl 50 mcg 04/17/24 22:47 04/17/24 23:19 Fentanyl 100 Mcg/2 Ml Vial IVP 50 mcg Q2H PRN Administration Ondansetron HCl 4 mg 04/17/24 22:47 04/17/24 23:09 Ondansetron 4 Mg/2 Ml Vial IM 4 mg Q6H PRN PRN Administration Sodium Chloride 0 ml 04/17/24 19:57 04/17/24 23:13 Normal Saline Flush 10 Ml Syr IVP 10 ml PRN PRN Administration Sodium Chloride 0 ml 04/17/24 20:00 07/09/24 22:06 Normal Saline Flush 10 Ml Syr IVP 10 ml BID ELEN Administration IV IV Catheter Type [Left Hand] Saline Lock IV Catheter Type [Right] Saline Lock IV Catheter Gauge [Left Hand] 18 IV Catheter Gauge [Right] 18 Diet Orders Category Date Time Status Diabetes Consistent CHO/Heart Healthy [DIET] Nutrition 04/18/24 Breakfast Active Diagnostics 04/18/24 04/17/24 04/17/24 Range/Units 05:35 23:25 19:00 WBC Pending (4.4-10.8) 10^3/uL RBC Pending (4.36-5.78) 10^6/uL Hgb Pending (13.5-17.5) g/dL Hct Pending (40.0-50.0) % MCV Pending (80-95) fL MCH Pending (27.0-33.0) pg MCHC Pending (32.0-36.0) % RDW Pending (11.8-14.1) % Plt Count Pending (130-400) 10^3/uL MPV Pending (8.0-11.0) fL Immature Gran % % Neutrophils % % Lymphocytes % % Monocytes % % Eosinophils % % Basophils % % Nucleated RBC % (0.0-0.3) % Absolute Neutrophils (1.2-6.7) 10^3/uL Absolute Lymphocytes (1.2-3.4) 10^3/uL Absolute Monocytes (0.1-0.8) 10^3/uL Absolute Eosinophils (0.0-0.7) 10^3/uL Absolute Basophils (0.0-0.2) 10^3/uL ESR Pending (0-15) mm/hr PT (9.1-11.1) sec INR (0.9-1.1) APTT (23.6-32.8) sec D-Dimer (<500) ng/mlFEU Sodium Pending (136-145) mmol/L Potassium Pending (3.5-5.1) mmol/L Chloride Pending (98-107) mmol/L Carbon Dioxide Pending (21.0-32.0) mmol/L Anion Gap Pending (3-11) mmol/L BUN Pending (7-18) mg/dL Creatinine Pending (0.70-1.30) mg/dL Est GFR (CKD-EPI 2020) Pending (mL/min/1.73m2) Glucose Pending (74-106) mg/dL Hemoglobin A1c (<5.7) % Calcium Pending (8.5-10.1) mg/dL Magnesium Pending (1.8-2.4) mg/dL Total Bilirubin Pending (0.2-1.0) mg/dL AST Pending (15-37) U/L ALT Pending (16-63) U/L Alkaline Phosphatase Pending (46-116) U/L Troponin I Pending < 50 < 50 (< or =60) ng/L C-Reactive Protein Pending (<or=0.5) mg/dL NT-Pro-B Natriuret Pep (<300) pg/mL Total Protein Pending (6.4-8.2) g/dL Albumin Pending (3.4-5.0) g/dL TSH 2.42 (0.36-3.74) uIU/mL COVID-19 Source SARS-CoV-2 (PCR) (Negative) Influenza Type A (PCR) (Negative) Influenza Type B (PCR) (Negative) RSV (PCR) (Negative) 04/17/24 04/17/24 04/17/24 Range/Units 18:22 15:44 15:25 WBC (4.4-10.8) 10^3/uL RBC (4.36-5.78) 10^6/uL Hgb (13.5-17.5) g/dL Hct (40.0-50.0) % MCV (80-95) fL MCH (27.0-33.0) pg MCHC (32.0-36.0) % RDW (11.8-14.1) % Plt Count (130-400) 10^3/uL MPV (8.0-11.0) fL Immature Gran % % Neutrophils % % Lymphocytes % % Monocytes % % Eosinophils % % Basophils % % Nucleated RBC % (0.0-0.3) % Absolute Neutrophils (1.2-6.7) 10^3/uL Absolute Lymphocytes (1.2-3.4) 10^3/uL Absolute Monocytes (0.1-0.8) 10^3/uL Absolute Eosinophils (0.0-0.7) 10^3/uL Absolute Basophils (0.0-0.2) 10^3/uL ESR (0-15) mm/hr PT (9.1-11.1) sec INR (0.9-1.1) APTT (23.6-32.8) sec D-Dimer (<500) ng/mlFEU Sodium (136-145) mmol/L Potassium (3.5-5.1) mmol/L Chloride (98-107) mmol/L Carbon Dioxide (21.0-32.0) mmol/L Anion Gap (3-11) mmol/L BUN (7-18) mg/dL Creatinine (0.70-1.30) mg/dL Est GFR (CKD-EPI 2020) (mL/min/1.73m2) Glucose (74-106) mg/dL Hemoglobin A1c (<5.7) % Calcium (8.5-10.1) mg/dL Magnesium (1.8-2.4) mg/dL Total Bilirubin (0.2-1.0) mg/dL AST (15-37) U/L ALT (16-63) U/L Alkaline Phosphatase (46-116) U/L Troponin I Cancelled (< or =60) ng/L C-Reactive Protein (<or=0.5) mg/dL NT-Pro-B Natriuret Pep Cancelled (<300) pg/mL Total Protein 7.0 (6.4-8.2) g/dL Albumin 3.5 (3.4-5.0) g/dL TSH (0.36-3.74) uIU/mL COVID-19 Source Nasopharynx SARS-CoV-2 (PCR) Negative (Negative) Influenza Type A (PCR) Negative (Negative) Influenza Type B (PCR) Negative (Negative) RSV (PCR) Negative (Negative) 04/17/24 Range/Units 15:25 WBC 12.88 H (4.4-10.8) 10^3/uL RBC 5.00 (4.36-5.78) 10^6/uL Hgb 14.9 (13.5-17.5) g/dL Hct 43.4 (40.0-50.0) % MCV 87 (80-95) fL MCH 29.8 (27.0-33.0) pg MCHC 34.3 (32.0-36.0) % RDW 12.5 (11.8-14.1) % Plt Count 361 (130-400) 10^3/uL MPV 9.9 (8.0-11.0) fL Immature Gran % 0.3 % Neutrophils % 82.0 % Lymphocytes % 10.6 % Monocytes % 6.4 % Eosinophils % 0.3 % Basophils % 0.4 % Nucleated RBC % 0.0 (0.0-0.3) % Absolute Neutrophils 10.56 H (1.2-6.7) 10^3/uL Absolute Lymphocytes 1.37 (1.2-3.4) 10^3/uL Absolute Monocytes 0.82 H (0.1-0.8) 10^3/uL Absolute Eosinophils 0.04 (0.0-0.7) 10^3/uL Absolute Basophils 0.05 (0.0-0.2) 10^3/uL ESR 24 H (0-15) mm/hr PT 11.1 (9.1-11.1) sec INR 1.1 (0.9-1.1) APTT 28.7 (23.6-32.8) sec D-Dimer 452 (<500) ng/mlFEU Sodium 137 (136-145) mmol/L Potassium 3.7 (3.5-5.1) mmol/L Chloride 103 (98-107) mmol/L Carbon Dioxide 22.8 (21.0-32.0) mmol/L Anion Gap 11.2 H (3-11) mmol/L BUN 18 (7-18) mg/dL Creatinine 1.3 (0.70-1.30) mg/dL Est GFR (CKD-EPI 2020) 69.90 (mL/min/1.73m2) Glucose 161 H (74-106) mg/dL Hemoglobin A1c 6.4 H (<5.7) % Calcium 8.9 (8.5-10.1) mg/dL Magnesium 2.0 (1.8-2.4) mg/dL Total Bilirubin 0.57 (0.2-1.0) mg/dL AST 18 (15-37) U/L ALT 38 (16-63) U/L Alkaline Phosphatase 54 (46-116) U/L Troponin I < 50 (< or =60) ng/L C-Reactive Protein 3.36 H (<or=0.5) mg/dL NT-Pro-B Natriuret Pep 86 (<300) pg/mL Total Protein (6.4-8.2) g/dL Albumin (3.4-5.0) g/dL TSH (0.36-3.74) uIU/mL COVID-19 Source SARS-CoV-2 (PCR) (Negative) Influenza Type A (PCR) (Negative) Influenza Type B (PCR) (Negative) RSV (PCR) (Negative) [id number] Documentation Fingerstick Glucose Start: 04/17/24 21:33 Freq: Status: Active Protocol: Activity Type Activity Date Activity User E-sign Co-sign Detail Recorded Client Recorded Date Recorded By Document 04/17/24 21:32 BKG DAEMON(3) [id number] 04/17/24 21:33 BKG DAEMON(4) Intake and Output - 24 Hour Total 04/17/24 15:04 thru 04/17/24 22:10 Intake Total 100 Output Total 25 Balance 75 Weight 104.7 kg Intake: IV 100 Output: Emesis 25 Other: Urine Appearance Clear Emesis Description Retching Falls Risk Assessment History of Falls No History 04/17/24 21:47 Contributing Factors No Factors 04/17/24 21:47 Ambulatory Aids Independent 04/17/24 21:47 Tubes/Lines None 04/17/24 21:47 Gait Evaluation No gait disturbance 04/17/24 21:47 Cognition No cognitive impairment 04/17/24 21:47 Fall Total Score 0 04/17/24 21:47 Level of Risk Standard/Low Risk 04/17/24 21:47 Problems (Last Reviewed 04/17/24 @ 19:55 by Porter Story) Hyperglycemia without ketosis (Chronic) Pleuritic chest pain (Acute) Pericarditis in diseases classified elsewhere (Acute) v v v v v v v v v Sending and/or Receiving Nurses: Please use comment section below to note any information pertinent to the patient hand-off not included above. 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 This morning, tightness and ache returned with dizziness, SOB, nausea. Pt contacted PCP; was seen. ECG presented ST segment elevation; pt sent to ED. Admitting Dx of pericarditis and suspected pericardial effusion. Provided with morphine - discovered allergy; Treated with benadryl. Also provided Zofran, Ofirmev, Toradol, aspirin. Report received from: Clover Mercado RN
[2024-04-18] MEDS: fentaNYL 100 MCG/2 ML VIAL 50 MCG IVP ×4 (02:19→17:24)
[2024-04-18 03:20] VITALS: BP 127/85; PULSE 92; RESP 20; TEMP 36.2; O2SAT 94
[2024-04-18 07:06] LABS: HCT 42.7 % (40.0-50.0); HGB 14.4 g/dL (13.5-17.5); MCH 29.7 pg (27.0-33.0); MCHC 33.7 % (32.0-36.0); MCV 88 fL (80-95); MPV 10.1 fL (8.0-11.0); Platelet Count 342 10^3/uL (130-400); RBC 4.85 10^6/uL (4.36-5.78); RDW 12.8 % (11.8-14.1); RDW-SD 41.5 fL; WBC 12.36 10^3/uL (4.4-10.8)
[2024-04-18 07:09] LABS: ESR 30 mm/hr (0-15)
[2024-04-18] MEDS: Normal Saline Flush 10 ML SYR IVP ×3 (07:15→11:32)
[2024-04-18] MEDS: Acetaminophen 325 MG TAB PO (07:16)
[2024-04-18] MEDS: Ondansetron 4 MG/2 ML VIAL IM ×2 (07:16→14:15)
[2024-04-18 07:25] VITALS: BP 138/89; PULSE 98; RESP 18; TEMP 37; O2SAT 94
[2024-04-18 07:26] LABS: ALT 96 U/L (16-63); AST 40 U/L (15-37); Albumin 3.2 g/dL (3.4-5.0); Alkaline Phosphatase 51 U/L (46-116); Anion Gap 9.4 mmol/L (3-11); BUN 16 mg/dL (7-18); Bilirubin, Total 0.87 mg/dL (0.2-1.0); C-Reactive Protein 17.63 mg/dL (<or=0.5); CO2 25.6 mmol/L (21.0-32.0); CREATININE 1.1 mg/dL (0.70-1.30); Calcium 8.9 mg/dL (8.5-10.1); Chloride 104 mmol/L (98-107); Estimated GFR 85.42 (mL/min/1.73m2); Glucose 164 mg/dL (74-106); Magnesium 2.2 mg/dL (1.8-2.4); Sodium 139 mmol/L (136-145); Total Protein 6.9 g/dL (6.4-8.2)
[2024-04-18 07:32] LABS: Troponin I < 50 ng/L (< or =60)
--- NOTE | 2024-04-18 08:00 | RT.EKG_ITS ---
APPROVED REPORT Exam: Resting ECG Reason for Exam: Acute pericarditis on treatment, follow-up EKG Patient Location: I HR:88 bpm ECG Measurements Heart Rate 88 AXIS MO 123 P 20 QRSd 87 QRS 48 QT 327 T 28 QTc 396 Conclusion Sinus rhythm...normal P axis, V-rate 50- 99 Lateral infarct, acute...ST >.10mV, V5 V6 [address] elevation, consider inferior injury...ST >0.08mV, II III aVF
[2024-04-18] MEDS: Ibuprofen 800 MG TAB PO ×2 (08:08→13:51)
[2024-04-18] MEDS: Colchicine 0.6 MG TAB PO (08:08)
--- NOTE | 2024-04-18 08:43 | NUR.NOTE ---
Nursing Note: EKG was brought to Dr. Britt, who reviewed it. Notified primary RN Tiara. Will continue to monitor.
[2024-04-18 11:28] VITALS: BP 127/86; PULSE 84; RESP 18; TEMP 35.9; O2SAT 96
[2024-04-18 15:13] VITALS: BP 129/98; PULSE 89; RESP 17; TEMP 36.7; O2SAT 96
--- NOTE | 2024-04-18 16:25 | INITIAL_ITS ---
Date of service: 04/18/24 Time of Service: 16:26 Care Management Initial Assmt Initial Assessment Reason for Hospitalization: Pericarditis Functional Status/Living Situation Patient Presentation: [place] ED [place] [facility] [place] by the ED provider and recommended oral treatment for pericarditis and trending troponins with cardiac monitoring overnight. Presented from PCP office after EKG read STEMI. Echo ordered as small (1 cm) pericardial effusion seen on POCUS exam in the ED. There is no evidence of tamponade and his case of pericarditis, which may be secondary to a recent viral infection, appears to be mild with only mild elevations in WBC, CRP and sed rate and having no fever or positive troponins. Town of Residence: [place] Resides with: Spouse (Esther ) Significant Other/Family: Local Employment Status: Employed Instrumental Activities of Daily Living (ADLs): Independent Medications Medication Management: No Issues/Barriers identified Advance Directives Advance Directives: AD On File at [facility]: N 06/29/23 14:23 Date Asked 05/16/23 06/29/23 14:23 AD Date Reviewed COLST On File at [facility] COLST Date Scanned Code Status Resuscitation Status Full Code Portal Pt does not currently have a portal and education provided: Yes Insurance Coverage/Financial Issues Insurance: [place] ACO Member: No Care Team Visit Care Team Role Provider Type GARFIELD TORRES NP Primary Care Provider NON-[facility] STAFF PHYSICIAN Arsenio John DO Emergency Provider [facility] STAFF PHYSICIAN Porter Story Admit Provider NON-[facility] STAFF PHYSICIAN Attending Provider Discharge Potential Discharge Needs: Consult Consult Services Needed: [place] [place] and Imaging/labs (Troponins, EKG, ECHO) Anticipated Barriers to Discharge: Other (He appears to have a mild case of pericarditis most likely will require transfer or prolonged hospital stay.) Patient/Family Education Needs: Review discharge instructions, discuss Ask Me Three Transportation: Private vehicle Plan: Work-up for pericarditis continues; awaiting results and MD guidance on treatment plan to inform discharge planning considerations. CM notified by PLUMBING TECHNICIAN that patient was transferred to tertiary care. PFSH All Active Problems (Updated 04/19/24 @ 00:08 by ODELL ESPINOZA) Pleuritic chest pain (Acute) Pericarditis in diseases classified elsewhere (Acute) Tongue lesion (Acute) Patient desires (Acute) Medical History Hematochezia Umbilical hernia Family history of diabetes mellitus Inguinal hernia, left Solitary lung nodule Tongue lump Seasonal allergies Rib pain Social History Smoking/Tobacco Use Status: Never Smoking risk assessment performed?: Yes Alcohol Intake: never Drug use: Never Substance use type: marijuana Housing: house Current gender identity: male Do you feel safe at home: Yes Do you feel safe in your relationship?: Yes SDOH(Care Management) Screening Will the Patient Participate in the Screening?: Yes Do you worry about having a steady place to live?: no Problems where you live: no known problems In the past 12 months, have you had to go without electric, gas, oil or water in your home?: no Have you or anyone in your house had to go without enough food to eat?: no Has lack of transportation kept you from medical appointments or from doing things needed for daily living?: no Has anyone in your support network made you feel unsafe for any reason?: no
--- NOTE | 2024-04-18 17:16 | DSE_ITS ---
Date of service: 04/18/24 Time of Service: 17:16 DS: Diagnosis Discharge Diagnosis (1) Pericarditis in diseases classified elsewhere: Status: Acute (2) Pleuritic chest pain: Status: Acute (3) Hyperglycemia without ketosis: Status: Chronic Discharge Plan Disposition Patient Disposition: Transfer-Acute Inpatient Care Specific Acute Inpt Facility: [facility] Condition: Serious Discharge Details Reason For Visit: pericarditis Admit Date/Time: 04/17/24 19:58 Admit Provider: Porter Story Attending Provider: Porter Story Primary Care Provider: GARFIELD TORRES Hospital Course Hospital Course: Presenting Complaint: The patient is a 43 year old male. otherwise healthy, who presented to the [facility] ED for evaluatino of chest pain, describing a heavy aching sensation in the central chest with associated shortness of breath. Symptoms began approximately 1.5 weeks after a viral illness characterized by vomiting. The pain initially occurred 4 days prior and recurred on the day of admission. History of Present Illness: * The patient experienced central chest tightness and achy sensation following a recent viral illness, which resolved spontaneously after a day initially but recurred. * An EKG at the primary care office suggested STEMI, prompting EMS transport to the ED. * Upon arrival, the patient received aspirin and further assessment was initiated. Medical Assessment: * Vital Signs: Stable BP 129/88, HR 88 NSR, RR16 SPO2 96% RA , no increased work of breathing * Cardiovascular Examination: Radial pulses +2 bilaterally, no edema or calf tenderness noted. * EKG Findings: Minimal elevation in 2, 3, and aVF with mild diffuse elevation in anterior leads, no reciprocal depression. Atypical for STEMI, more suggestive of pericarditis. * Lab Results: Mildly elevated white count (12), normal D-dimer ruling out PE, mildly elevated ESR and CRP. * Imaging: Bedside echo showed mild pericardial effusion (1 cm), chest x-ray negative for acute findings. Diagnosis and Management: * Diagnosis: Moderate pericarditis, likely triggered by recent viral illness. * Management: Initiated with Tylenol for pain relief, avoided nitroglycerin due to EKG findings. Toradol provided mild relief. Aspirin was administered. Colchicine was started. * Consultation: Discussion with specialists at [facility] confirmed suspicion of pericarditis. Recommendations included a formal echo. * Formal Echo completed ? [place] Med[place] [facility] [place] ? Moderate to large circumferential pericardial effusion, largest component up to? 2.3 cm anteriorly/ RV adjacent. ?Abnormal diastolic collapse of the right atrium and ventricle, septal shudder and the IVC is dilated 2.7 cm with minimal respiratory variation. LV EF appears variable. Findings consistent with increased pericardial pressure and the possibility of hemodynamic compr omise by echocardiographic criteria. Patient should be in a facility that has the capability of performing serial echos' and a pericardiocentesis if needed Although patient is hemodynamically stable at this time, there is real potential for rapid decline. Discussion with [facility] [place] Flor Corey, she does not accept the patient, they are at capacity. Disccusion with [facility] Dr Delgado Kiser, accepts the patient in transfer. Patient and in agreement with plan of care and transfer. Home Meds and New Rx's Prescriptions: No Action cetirizine 10 mg tablet 10 mg PO DAILY PRN Discharge Instructions Activity:: Bed rest Equipment/Supplies:: No Equipment Needed Diet:: Clears Discharge Orders Discharge Orders: Discharge Order (Routine); Ordered 04/18/24 Ordered By: Dilcia Casas DS: Summary Time Spent with Patient providing and/or coordinating discharge services: Greater than 30 minutes Status at Discharge Functional status at discharge: independent ambulation Overall status at discharge: patient is not back to baseline Mental Status: mental status grossly normal Speech and Movement: speech and movement normal Mood: congruent mood Affect: normal affect Quality:SDOH Health Related Social Needs: No Data to Display Exam Narrative Exam Narrative: 1.Const: Well-nourished, Well-developed, appearing stated age 2.Eyes: PERRL, no conjunctival injection, and symmetrical lids. 3.ENT: Atraumatic external nose and ears. Dry MM. Neck: Symmetric, trachea midline, No thyromegaly. 4.CVS: +S1/S2, No murmurs or gallops. Peripheral pulses 2+ and equal in all extremities. Brisk capillary refill in all extremities. 5.RESP: Unlabored respiratory effort. Clear to auscultation bilaterally. No whe ezes rales or rhonchi. No significant reproducible component on palpation of the anterior chest wall. No signs of shingles 6.GI: Soft, Nontender/Nondistended, No hepatosplenomegaly. No guarding or rebound. 7.MSK: Normocephalic/Atraumatic, Extremities w/o deformity or ttp No cyanosis or clubbing, Normal movement of all extremities 8.Skin: Warm, Dry. No rashes or lesions. 9.Neuro: flight information expediter II-XII grossly intact. Sensation grossly intact, no focal neurologic deficits 10.Psych: (AAO) x3. Appropriate mood and affect Psych Mental Status: mental status grossly normal Speech and Movement: speech and movement normal Mood: congruent mood Affect: normal affect DS: Data Vitals/I&O Vitals and I&O: Vital Signs Temperature 36.7 C 04/18/24 15:13 Temperature Source Skin 04/18/24 15:13 Pulse 89 04/18/24 15:13 Pulse Rhythm Regular 04/18/24 08:42 Pulse 102 H 04/17/24 21:34 Respiratory Rate 17 04/18/24 15:13 Respiratory Effort Normal, Non-Labored 04/18/24 08:42 Respiratory Depth Normal 04/18/24 08:42 Respiratory Pattern Normal 04/18/24 08:42 Blood Pressure 129/98 H 04/18/24 15:13 Blood Pressure Mean 103 04/17/24 21:07 Pulse Oximetry 96 04/18/24 15:13 Oxygen Delivery Method Room Air 04/18/24 15:13 Oxygen Flow Rate 0 04/18/24 15:13 Pain Level 7 04/18/24 15:13 Intake & Output 04/17/24 04/18/24 04/18/24 23:59 11:59 23:59 Intake Total 100 / 100 Output Total 25 / 25 Balance 75 / 75 Weight 104.7 kg Intake: IV 100 / 100 Output: Emesis Other: Urine Appearance Clear Clear Comment pT is independent to the bathroom. pT stated that he has been up using the bathroom through out the day. Emesis Description Retching Voiding Methods Toilet Data Completed and Pending Labs on day of discharge: Labs from last 24 hours 04/18/24 04/17/24 04/17/24 06:50 23:25 19:00 WBC 12.36 H RBC 4.85 Hgb 14.4 Hct 42.7 MCV 88 MCH 29.7 MCHC 33.7 RDW 12.8 Plt Count 342 MPV 10.1 ESR 30 H D-Dimer Sodium 139 Potassium 4.0 Chloride 104 Carbon Dioxide 25.6 Anion Gap 9.4 BUN 16 Creatinine 1.1 Est GFR (CKD-EPI 2020) 85.42 Glucose 164 H Hemoglobin A1c Calcium 8.9 Magnesium 2.2 Total Bilirubin 0.87 AST 40 H ALT 96 H Alkaline Phosphatase 51 Troponin I < 50 < 50 < 50 C-Reactive Protein 17.63 H Total Protein 6.9 Albumin 3.2 L TSH 2.42 04/17/24 04/17/24 18:22 15:25 WBC RBC Hgb Hct MCV MCH MCHC RDW Plt Count MPV ESR D-Dimer 452 Sodium Potassium Chloride Carbon Dioxide Anion Gap BUN Creatinine Est GFR (CKD-EPI 2020) Glucose Hemoglobin A1c 6.4 H Calcium Magnesium Total Bilirubin AST ALT Alkaline Phosphatase Troponin I Cancelled C-Reactive Protein Total Protein Albumin TSH PFSH All Active Problems (Updated 04/17/24 @ 23:59 by Arsenio John DO) Hyperglycemia without ketosis (Chronic) Pleuritic chest pain (Acute) Pericarditis in diseases classified elsewhere (Acute) Tongue lesion (Acute) Patient desires (Acute) Medical History Hematochezia Umbilical hernia Family history of diabetes mellitus Inguinal hernia, left Solitary lung nodule Tongue lump Seasonal allergies Rib pain Social History Smoking/Tobacco Use Status: Never Smoking risk assessment performed?: Yes Alcohol Intake: never Drug use: Never Substance use type: marijuana Housing: house Current gender identity: male Do you feel safe at home: Yes Do you feel safe in your relationship?: Yes Time Spent with Patient Time Spent with Patient: 45-69 minutes Time was spent: preparing to see the patient(eg.review tests), ordering medications,tests, procedures, referring, communicating with other health dialysis patient care technician, indepentently interpreting results, counseling the patient and care coordination
[2024-04-18 17:32] VITALS: BP 131/98; PULSE 87; RESP 18; TEMP 35.7; O2SAT 94
== END 2024-04-18 18:36 | disposition short-term general hospital (02) | DRG 316 ==
LOC: ER 15:31 → MS 21:25
PROVIDERS: Admitting Provider Family Medicine; Emergency Provider Student in an Organized Health Care Education/Training Program; PCP Nurse Practitioner Family; Visit Provider Family Medicine
DX: I30.1 Infective pericarditis; R73.9 Hyperglycemia, unspecified; R07.81 Pleurodynia; B97.89 Other viral agents as the cause of diseases classified elsewhere; F41.0 Panic disorder [episodic paroxysmal anxiety]; Z83.3 Family history of diabetes mellitus
CPT/HCPCS: 00123; 36415; 36416; 80053; 82962; 85027; 85652; 87637; 93005; 93308; 96365; 96372; 96375; 99285; 71045; 83036; 83735; 83880; 84443; 84484; 85025; 85379; 85610; 85730; 86140; 93010; 93306; 99223; 99239; J0131; J1200; J1885; J2270; J2405; J3010

== ENCOUNTER 2024-07-01 22:32 | Emergency (ER) | payer BC, SELFPAY ==
[2024-07-01] VITALS (8 sets, daily range): BP systolic 147–155; BP diastolic 101–104; PULSE 90–98; RESP 12–18; TEMP 36.2; O2SAT 97
--- NOTE | 2024-07-01 22:30 | RT.EKG_ITS ---
APPROVED REPORT Exam: Resting ECG Reason for Exam: chest pain Patient Location: E HR:94 bpm ECG Measurements Heart Rate 94 AXIS HI 156 P 31 QRSd 102 QRS 44 QT 361 T 49 QTc 453 Conclusion Sinus rhythm...normal P axis, V-rate 60- [address] [place] [address]onspecific [address]-T changes Prior diffuse ST elevation now replaced with NS ST changes.
--- NOTE | 2024-07-01 22:30 | DI.RAD_ITS ---
Exam(s) XR CHEST 2V PA LATERAL EXAM: XR CHEST 2V PA LATERAL CLINICAL HISTORY: CP. TECHNIQUE: 2D digital imaging was performed. COMPARISON: CR XR PORTABLE CHEST AP from 04/17/2024 FINDINGS: 2 views: Heart size is upper normal. The mediastinum is not widened. Right lung was clear. Small area of infiltrate noted in lower left lung adjacent to the left heart b order in the lingular segment. No pleural effusions. No pulmonary edema. IMPRESSION: Small nodular infiltrate in the lingular segment left lung, adjacent to the left heart border. No pl eural effusions. DATA REPOSITORY: RADIATION DOSE DELIVERED:
--- NOTE | 2024-07-01 22:36 | W.ED.GENAD ---
Discharge Plan Disposition Patient Disposition: Home Condition: Good Discharge Details Clinical Impression: Pleuritic chest pain Primary Care Provider: GARFIELD TORRES ED Provider: Milton Hawkins and Hardy Rx's Prescriptions: Continued cetirizine 10 mg tablet 10 mg PO DAILY PRN prednisone 10 mg tablet 10 mg PO DAILY prednisone 1 mg tablet 1 mg PO DAILY colchicine 0.6 mg tablet 0.6 mg PO BID Patient Comments: TAKE 1 TABLET BY MOUTH TWICE DAILY DIRECTED FOR 90 DAYS Discharge Instructions Instructions: Pleuritic Chest Pain ED Additional Instructions: You were seen for pleuritic left upper chest pain. Your EKG, laboratory studies, imaging studies are reassuring with no evidence of pneumonia or blood clots on CT. You still have a moderate pericardial effusion and should follow-up with your supervisor mails as well as primary care. May use acetaminophen or ibuprofen as needed for discomfort. Return to ED for any new or worsening pain, shortness of breath, syncope, fever, neurologic change, other concerns. Referrals: GARFIELD TORRES, PERFECT BINDER OPERATOR [Primary Care Provider] - HPI General Mode of arrival: ambulatory. Date/Time Provider Initiated Documentation: 07/01/24 22:36. Limitations to Documentation: no limitations. Information obtained by: patient, RN notes reviewed and old records reviewed. HPI Narrative: Patient presenting to ED with chest pain. Patient reports having chest pain in the left upper anterior region that is constant though waxes and wanes in intensity. This has been present for 3 days now. It is somewhat pleuritic with a little radiation to the back. Denies having shortness of breath. Denies having any nausea. Did develop some increased pain in sweat earlier this afternoon when he had to kendrick after a dog. Symptoms only lasted in regards to worsening pain and sweating for a few minutes. Patient is currently on prednisone and colchicine for pericarditis diagnosed at the end of April. This is presumed secondary to previous COVID infection. No reported cardiac risk factors or PE/DVT risk factors. No recent illness. No cough or fever. Related Data Home Medications ?Medication ?Instructions ?Recorded ?Confirmed cetirizine 10 mg tablet 10 mg PO DAILY PRN 06/29/23 07/01/24 colchicine 0.6 mg tablet 0.6 mg PO BID 07/01/24 07/01/24 prednisone 1 mg tablet 1 mg PO DAILY 07/01/24 07/01/24 prednisone 10 mg tablet 10 mg PO DAILY 07/01/24 07/01/24 Allergies Allergy/AdvReac Type Severity Reaction Status Date / Time Sulfa (Sulfonamide Allergy Severe Hives Unverified 07/01/24 22:44 Antibiotics) morphine Allergy Mild Hives Verified 07/01/24 22:44 Penicillins Allergy Hives Verified 07/01/24 22:44 General MARCO: 2 Review of Systems Narrative: Per HPI Exam Narrative Exam Narrative: Const: WDWN male in NAD. VS per triage. HEENT: NC/AT. Normal facial exam. Neck: Supple. Trachea midline. Lungs: Normal respiratory effort. Lungs are clear. Cor: RRR without murmur. Good radial pulses. GI: Soft/ND/NT. Neuro: A+O x 3. Normal speech, mentation, gait. Cranial nerves II - XII grossly intact. No gross motor or sensory deficit. Ext: No C/C/E. Medical Decision Making Patient presenting to ED with left upper chest pain that has been present for about 3 days. It is somewhat pleuritic in nature. Feels little like his pain related to pericarditis but feels like it is in a different area. Currently still taking prednisone and colchicine. No cardiac risk factors. Pain was a little worse this afternoon after brief episode of exertion. His EKG is sinus rhythm with nonspecific ST changes having replaced previous diffuse ST elevation back in April. He is low risk for PE and subsequently PERCs out. Will obtain laboratory studies including troponin as well as chest x-ray. Patient's laboratory studies are unremarkable. White count is normal. Potassium a little low at 3.1 and he will be given oral supplementation. Initial troponin is 5 and repeat troponin is 5. Patient with low HEART score and normal troponins after 3 days of discomfort, unlikely cardiac in nature. Chest x-ray without infiltrate or pneumothorax. Still has somewhat globular looking heart which seems unchanged compared to x-ray from April per my read. Preliminary radiology read suggests left apical nodular-like density which corresponds with where he is feeling pain. Will obtain CT chest with contrast. CT per preliminary radiology read with focal pleural-parenchymal scarring adjacent to pericardial fat pad and no further follow-up indicated. Patient continues to have moderate-sized pericardial effusion but no evidence of tamponade physiology. There is also no evidence of filling defect or PE. Discussed findings with patient. He will definitely follow-up with his supervisor mails and does have an echo scheduled in the next couple of weeks. Given IV ketorolac for his discomfort. May continue ibuprofen or acetaminophen as needed. Return precautions provided. Medical Records Medical records reviewed: Yes I reviewed the patient's medical records. Imaging Data Radiologic Study: Attestation: I personally reviewed and interpreted this imaging study as follows: Imaging: X-Ray (CXR) My impression: see MDM Lab Data Lab results reviewed: Yes I reviewed the patient's lab results. ECG Data Attestation: I personally reviewed and interpreted this ECG (s) as follows: Prior ECG tracings: available for review Interpretation: see EKG/MDM PFSH All Active Problems (Updated 07/02/24 @ 03:05 by Milton Hawkins MD) Pleuritic chest pain (Acute) Medical History Pericarditis in diseases classified elsewhere Umbilical hernia Family history of diabetes mellitus Inguinal hernia, left Solitary lung nodule Tongue lump Seasonal allergies Social History Smoking/Tobacco Use Status: Never Smoking risk assessment performed?: Yes Alcohol Intake: never Drug use: Never Substance use type: marijuana Housing: house Current gender identity: male Do you feel safe at home: Yes Do you feel safe in your relationship?: Yes
[2024-07-01 22:54] LABS: Abs Immature Grans 0.03 10^3/uL (0.0-0.06); Absolute Basophil Count 0.04 10^3/uL (0.0-0.2); Absolute Eosinophil Count 0.04 10^3/uL (0.0-0.7); Absolute Lymphocyte Count 3.06 10^3/uL (1.2-3.4); Absolute Monocyte Count 0.49 10^3/uL (0.1-0.8); Absolute Neutrophil Count 5.03 10^3/uL (1.2-6.7); Basophils % 0.5 %; Eosinophils % 0.5 %; HCT 39.1 % (40.0-50.0); HGB 13.6 g/dL (13.5-17.5); Immature Grans % 0.3 %; Lymphocytes % 35.2 %; MCH 30.2 pg (27.0-33.0); MCHC 34.8 % (32.0-36.0); MCV 87 fL (80-95); Monocytes % 5.6 %; Neutrophils % 57.9 %; Platelet Count 265 10^3/uL (130-400); RBC 4.51 10^6/uL (4.36-5.78); RDW 14.1 % (11.8-14.1); RDW-SD 45.1 fL; WBC 8.69 10^3/uL (4.4-10.8)
--- OUTSIDE RECORDS SUMMARY | 2024-07-01 22:54 | XMS_ITS | Encounter Summary ---
Author Organization [facility] [place] [address] Care Team Providers Care Chief Arson Division Name Role Phone Unavailable Primary Care Provider Unavailabl e Encounter Details Date Type Department Care Team (Late st Contact Info) Description 04/17/2024 External Results [place] [id number] Social History Tobacco Use Types Packs/Day Years Used Date Smoking Tobacco: Never Assessed Sex and Gender Information Value Date Recorded Sex Assigned at Not on file Gender Identity Not on file Sexual Orientation Not on file documented as of this encounter Plan of Treatment Not on file documented as of this encounter Procedures Procedure Name Priority Date/Time Associated Diagnosis Comments EKG 12-LEAD Routine 04/17/2024 3:55 PM EDT documented in this encounter Results * EKG 12 Lead (04/17/2024 3:55 PM EDT) Historical Provider ECG ORDERABLES documented in this encounter Visit Diagnoses Not on filedocumented in this encounter
--- OUTSIDE RECORDS SUMMARY | 2024-07-01 22:54 | XMS_ITS | Clinical Summary ---
Author Organization [facility] [place] [place] [address] Care Team Providers Care Dry Sand Molder Name Role Phone Unavailable Primary Care Provider Unavailabl e Encounters Date Type Department Care Team Description 04/18/2024 12:10 PM EDT - 04/18/2024 11:59 PM EDT Hospital Encounter [place] [address] Marah Campbell MD Acute pericarditis, unspecified type Discharge Disposition: Home 04/17/2024 Telephone Cardiology at [address] [phone] Bashir Garrett MD 04/17/2024 External Results [place] [address] from Last 3 Months Social History Tobacco Use Types Packs/Day Years Used Date Smoking Tobacco: Never Assessed Sex and Gender Information Value Date Recorded Sex Assigned at Not on file Gender Identity Not on file Sexual Orientation Not on file Plan of Treatment Health Maintenance Due Date Last Done Comments HIV screen 1998 Hepatitis C Screening 1998 Lipid Screening 1998 Hepatitis B vaccine (0-59 yrs) (1) 1999 Tdap adult 1999 Tetanus vaccine 1999 Covid-19 Vaccine ( - 2022- season) 2024 Influenza (Flu) vaccine (1 o f 1 - Influenza standard series) 06/10/2024 Procedures Procedure Name Priority Date/Time Associated Diagnosis Comments ECHO COMPLETE Routine 04/18/2024 2:07 PM EDT Acute pericarditis, unspecified type EKG 12-LEAD Routine 04/17/2024 3:55 PM EDT from Last 3 Months Results * ECHO COMPLETE (04/18/2024 2:07 PM EDT) EF 52 HEARTLAB SYSTEM Anatomical Region Laterality Modality Other 04/18/2024 10:3 5 AM EDT Narrative 04/18/2024 2:55 PM EDT [address] [place] [address] ? Echocardiogram Report Name: PRAFUL PEREZ ?Study Date: 04/18/2024 10:35 AMBP: 138/89 mmHg ? Patient Location: : 1980 ? Account: [id number] Age: 43 yrs Gender: Male Ordering Physician: MARAH CAMPBELL Referring Physician: MARAH CAMPBELL Reason For Study: Acute Pericarditis Exam Location: [facility]. Interpretation Summary 1. The left ventricle is normal in size. Global systolic function is borderline with LVEF of 52% by Lakhani's biplane. 2. The right ventricle is normal in size and systolic function. 3. Normal atria. 4. Structurally and functionally normal valves. 5. Moderate to large circumferential pericardial effusion (largest component up to 2.3 cm anteriorly/RV adjacent). Hemodynamic assessment is incomplete due to the absence of the a respirometer or prolonged clips of Doppler inflows and right sided chambers. However, some clips show abnormal diastolic collapse of the right atrium and ventricle, there is septal shudder and the IVC is dilated (2.7cm) with minimal respiratory variation. In some views, despite a regular rhythm, the LV ejection fraction appears variable. These findings are consistent with increased pericardial pressure and the possibility of hemodynamic compromise by echocardiographic criteria. 6. No prior study available for comparison. Critical findings re pericardial effusion and potential for hemodynamic compromise communicated to responsible team at [facility]. Procedure Complete-93058. Satisfactory quality. There is normal sinus rhythm. Left Ventricle Left ventricle is of normal size. Wall thickness is normal. There is no ventricular septal defect. There is no left ventricular outflow tract obstruction. Left ventricular systolic function is mildly reduced. The left ventricular ejection fraction is 50% by 3D volumetric assessment. The left ventricular ejection fraction is 52% by Lakhani's biplane. Right Ventricle The right ventricle is of normal size. Right ventricular systolic function is normal. Left Atrium The left atrium is normal. No abnormality of the interatrial septum is identified. Right Atrium The right atrium is normal. Aortic Valve The aortic valve is structurally normal. The aortic valve is tricuspid. There is no aortic stenosis. There is no aortic regurgitation. Mitral Valve The mitral valve is structurally and functionally normal. There is trace mitral regurgitation. Tricuspid Valve The tricuspid valve is structurally normal. There is trace tricuspid regurgitation. Pulmonic Valve The pulmonic valve appears to be structurally normal. There is trace pulmonic valve regurgitation. Great Arteries The diameter at the level of the sinuses of Valsalva is 2.9 cm. The maximum diameter of the proximal ascending aorta is 2.9 cm. Venous Inferior vena cava is dilated. Inferior vena cava collapse less than 50% with respiration. Pericardium/Pleural There is a moderate pericardial effusion. The pericardial effusion is circumferential. The possibility of hemodynamic compromise cannot be excluded. Hemodynamic assessment was incomplete on this study, however, abnormal right sided chamber collapse, septal shudder and plethoric IVC all argue for increased pericardial pressures and the possibility of hemodynamic compromise secondary to the pericardial effusion. Hemodynamics Pulmonary artery hypertension could not be assessed due to inadequate tricuspid regurgitation jet. Ejection Fraction ?2D Measurements ? Volumes EF(MOD-bp): 52.4 % ?IVSd: 0.92 cm ?LA Volume Index: ?LVIDd: 4.5 cm ?14.9 ml/m2 ?LVIDs: 3.3 cm ?SV(LVOT): 45.5 ml ?LVPWd: 0.92 cm ? LV Stroke Volume: 45.5 ml ?RWT: 0.41 {ratio} ?LV mass(C)d: 134.0 grams ?Ao root diam: 2.9 cm ?asc Aorta Diam: 2.9 cm ?LVOT diam: 2.0 cm ?TAPSE_phl: 1.4 cm Doppler LV V1 VTI: 13.8 cm LVOT max Velocity: 84.5 cm/sec Ao V2 VTI: 17.8 cm Ao Max: 101.1 cm/sec Ao valve max: 4.1 mmHg Ao valve mean: 2.4 mmHg MV E max theodore: 59.3 cm/sec MV A max theodore: 53.0 cm/sec MV E/A: 1.1 MV dec time: 0.13 sec MV mean P.47 mmHg ANH(I,D): 2.6 cm2 Dimensionless index Aov: 0.78 I ?WMSI = 1.00 ? % Normal = 100 ?Segments ??Size X - Cannot ?2 - ?4 - ?1-2 ? small Interpret ?1 - Normal ?? Hypokinetic 3 - Akinetic Dyskinetic ?? 3-5 ? moderate 5 - ? 6-14 ?large Aneurysmal ?15-16 ?? diffuse Procedure Note Shannon Medina MD - 04/18/2024 [address] [place] [address] Echocardiogram Report Name: PRAFUL PEREZ Study Date:04/18/2024 10:35 AMBP: 138/89 mmHg Patient Location: : 1980 Account: [id number] Age: 43 yrs Gender: Male Ordering Physician: MARAH CAMPBELL Referring Physician: MARAH CAMPBELL Reason For Study: Acute Pericarditis Exam Location: [facility]. Interpretation Summary 1. The left ventricle is normal in size. Global systolic function isborderline with LVEF of 52% by Lakhani's biplane. 2. The right ventricle is normal in size and systolic function. 3. Normal atria. 4. Structurally and functionally normal valves. 5. Moderate to large circumferential pericardial effusion (largestcomponent up to 2.3 cm anteriorly/RV adjacent). Hemodynamic assessment is incomplete dueto the absence of the a respirometer or prolonged clips of Doppler inflows andright sided chambers. However, some clips show abnormal diastolic collapse ofthe right atrium and ventricle, there is septal shudder and the IVC is dilated(2.7cm) with minimal respiratory variation. In some views, despite a regularrhythm, the LV ejection fraction appears variable. These findings are consistentwith increased pericardial pressure and the possibility of hemodynamiccompromise by echocardiographic criteria. 6. No prior study available for comparison. Critical findings repericardial effusion and potential for hemodynamic compromise communicated toresponsible team at [facility]. Procedure Complete-[id number]. Satisfactory quality. There is normal sinus rhythm. Left Ventricle Left ventricle is of normal size. Wall thickness is normal. There is no ventricular septal defect. There is no left ventricular outflow tractobstruction. Left ventricular systolic function is mildly reduced. The leftventricular ejection fraction is 50% by 3D volumetric assessment. The leftventricular ejection fraction is 52% by Lakhani's biplane. Right Ventricle The right ventricle is of normal size. Right ventricular systolic functionis normal. Left Atrium The left atrium is normal. No abnormality of the interatrial septum isidentified. Right Atrium The right atrium is normal. Aortic Valve The aortic valve is structurally normal. The aortic valve is tricuspid.There is no aortic stenosis. There is no aortic regurgitation. Mitral Valve The mitral valve is structurally and functionally normal. There is tracemitral regurgitation. Tricuspid Valve The tricuspid valve is structurally normal. There is trace tricuspid regurgitation. Pulmonic Valve The pulmonic valve appears to be structurally normal. There is tracepulmonic valve regurgitation. Great Arteries The diameter at the level of the sinuses of Valsalva is 2.9 cm. Themaximum diameter of the proximal ascending aorta is 2.9 cm. Venous Inferior vena cava is dilated. Inferior vena cava collapse less than 50%with respiration. Pericardium/Pleural There is a moderate pericardial effusion. The pericardial effusion is circumferential. The possibility of hemodynamic compromise cannot beexcluded. Hemodynamic assessment was incomplete on this study, however, abnormalright sided chamber collapse, septal shudder and plethoric IVC all argue forincreased pericardial pressures and the possibility of hemodynamic compromisesecondary to the pericardial effusion. Hemodynamics Pulmonary artery hypertension could not be assessed due to inadequatetricuspid regurgitation jet. Ejection Fraction 2D Measurements Volumes EF(MOD-bp): 52.4 % IVSd: 0.92 cm LA VolumeIndex: LVIDd: 4.5 cm 14.9 ml/m2 LVIDs: 3.3 cm SV(LVOT): 45.5ml LVPWd: 0.92 cm LV Stroke Volume:45.5 ml RWT: 0.41 {ratio} LV mass(C)d: 134.0 grams Ao root diam: 2.9 cm asc Aorta Diam: 2.9 cm LVOT diam: 2.0 cm TAPSE_phl: 1.4 cm Doppler LV V1 VTI: 13.8 cm LVOT max Velocity: 84.5 cm/sec Ao V2 VTI: 17.8 cm Ao Max: 101.1 cm/sec Ao valve max: 4.1 mmHg Ao valve mean: 2.4 mmHg MV E max theodore: 59.3 cm/sec MV A max theodore: 53.0 cm/sec MV E/A: 1.1 MV dec time: 0.13 sec MV mean P.47 mmHg ANH(I,D): 2.6 cm2 Dimensionless index Aov: 0.78 I WMSI = 1.00 % Normal = 100 SegmentsSize X - Cannot 2 - 4 - 1-2small Interpret 1 - Normal Hypokinetic 3 - Akinetic Dyskinetic 3-5moderate 5 - 6-14large Aneurysmal 15-16diffuse Marah Campbell MD ECHO ORDERABLES * EKG 12 Lead (04/17/2024 3:55 PM EDT) Historical Provider ECG ORDERABLES from Last 3 Months
--- OUTSIDE RECORDS SUMMARY | 2024-07-01 22:54 | XMS_ITS | Clinical Summary ---
Author Organization [facility] Address [address] [place] [address] Care Team Providers Care Machine Grainer Name Role Phone Med Evelyn Johnson VOICE PATHOLOGIST Primary Care Provider [phone] Allergies Active Allergy Reactions Criticality Noted Date Comments Morphine Rash 04/18/2024 Tolerated hydromorphone 04/19/24 Penicillins Anaphylaxis High 04/18/2024 Sulfa (Sulfonamide Antibiotics) Anaphylaxis High 04/18/2024 Medications Medication Sig Dispensed Refills Start Date End Date Status predniSONE (DELTASONE) 1 mg tablet Take 7.5 Tablets by mouth daily for 7 days, THEN 5 Tablets daily for 7 days, THEN 2.5 Tablets daily for 7 days, THEN 1 Tablet daily for 7 days. 112 Tablet 06/15/2025 07/13/2025 Active colchicine (COLCRYS) 0.6 mg tablet Take 1 Tablet by mouth 2 times daily for 180 days. 60 Tablet 5 04/20/2024 10/17/2024 Active predniSONE (DELTASONE) 10 mg tablet Take 5 Tablets by mouth daily for 14 days, THEN 4 Tablets daily for 7 days, THEN 3 Tablets daily for 7 days, THEN 2.5 Tablets daily for 7 days, THEN 2 Tablets daily for 7 days, THEN 1.5 Tablets daily for 7 days, THEN 1 Tablet daily for 7 days. 168 Tablet 04/20/2024 06/15/2024 atovaquone (MEPRON) 750 mg/5 mL suspension Take 10 mL by mouth every 24 hours for 45 days. 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 Pericardial tamponade 04/19/2024 Pericardial effusion with cardiac tamponade 04/09 Encounters Date Type Department Care Team Description 04/19/2024 9:40 EDT - 04/19/2024 10:40 EDT Surgery [facility] Invasive Cardiology Unit [address] [place] [address] Dominick Romano MD Pericardial Tap 04/18/2024 20:28 EDT - 04/20/2024 17:00 EDT Hospital Encounter [facility] Specialty Surgery Unit [address] [place] [address] Delgado Kiser MD Hopkins, Johnathon Mina MD Pericardial effusion with cardiac tamponade (Primary Dx); Pericardial effusion; Subacute effusive constrictive pericarditis; Pericardial tamponade Discharge Disposition: Home or Self Care 04/18/2024 Travel from Last 3 Months Social History Tobacco Use Types Packs/Day Years Used Date Smoking Tobacco: Never Smokeless Tobacco: Never Tobacco Cessation:Counseling Given: No Alcohol Use Standard Drinks/Week Comments Never 0 (1 standard drink = 0.6 oz pur e alcohol) [facility] Utilities Answer Date Recorded In the past 12 months has th e [employer], gas, oil, or water [employer] threatened to shut off services in your home? No 04/18/2024 Hunger Vital Sign Answer Date Recorded Within the past 12 months, y ou worried that your food would run out before you got the money to buy more. Never true 04/18/20 24 Within the past 12 months, t he food you bought just didn't last and you didn't have money to get more. Never true 04/18/2024 PRAPARE - Transportation Answer Date Re corded In the past 12 months, has l ack of transportation kept you from medical appointments or from getting medications? No 04/09 In the past 12 months, has l ack of transportation kept you from meetings, work, or from getting things needed for daily living? No 04/19/2024 Housing Stability Vital Sign Answer Julio e Recorded In the last 12 months, was t here a time when you were not able to pay the mortgage or rent on time? No 04/19/2024 In the past 12 months, how m any times have you moved where you were living? 0 04/19/2024 At any time in the past 12 m [facility], were you homeless or living in a mcc (including now)? No 04/19/2024 Interpersonal Safety Answer Date Record ed How often does anyone, inclu manpreet family, hit, punch or physically hurt you? 04/18/2024 How often does anyone, inclu manpreet family, insult, scream, curse or threaten to hurt you? 04/18/2024 Sex and Gender Information Value Date Recorded Sex Assigned at Not on file Gender Identity Not on file Sexual Orientation Not on file Obstetrics History Last Filed Vital Signs Vital Sign Reading Time Taken Comments Blood Pressure 118/83 04/20/2024 0749 EDT Pulse 73 04/20/2024 0013 EDT Temperature 36.9 ??C (98.4 ??F) 04/20/2024 0749 EDT Respiratory Rate 18 04/20/2024 0749 EDT Oxygen Saturation 94% 04/20/2024 0849 EDT Inhaled Oxygen Concentration - - Weight 109.8 kg (242 lb) 04/19/2024 1200 EDT Height 182.9 cm (6' 0.01) 04/19/2024 1200 EDT Body Mass Index 32.81 04/19/2024 1200 EDT Plan of Treatment Upcoming Encounters Date Type Department Care Team (Late st Contact Info) Description 07/10/2024 16:00 EDT Office Visit [facility] Cardiology - [address] [place], [place] [id number] Juanito Phillips MD [address] [place] [id number] Health Maintenance Due Date Last Done Comments Hepatitis C Screen 1980 Hepatitis B Vaccine (1 of 3 - 19+ 3-dose series) 04/25 COVID-19 Vaccine ( season) 2024 Procedures Procedure Name Priority Date/Time Associated Diagnosis Comments ECG REPORT - SCANNED 04/26/2024 9:08 EDT ECG REPORT - SCANNED 04/23/2024 17:54 EDT TRANSTHORACIC ECHO (TTE) LIMITED Routine 04/20/2024 9:56 EDT ECG REPORT - SCANNED 04/20/2024 9:03 EDT COMPLETE BLOOD COUNT Routine 04/20/2024 5:53 EDT COMPREHENSIVE METABOLIC PANEL (CMP) Routine 04/20/2024 5:53 EDT C REACTIVE PROTEIN Routine 04/20/2024 5: 53 EDT NON PROJECT SCHEDULER/FNA CYTOLOGY Routine 04/19/2024 12:07 EDT Pericardial effusion FLUID DIFFERENTIAL Today 04/19/2024 12 :07 EDT HOLD FLUID Routine 04/19/2024 12:07 EDT FLUID CELL COUNT Routine 04/19/2024 12:0 7 EDT FUNGUS CULTURE/SMEAR Routine 04/19/2024 12:07 EDT ANAEROBE CULTURE/SMEAR(INC. AEROBES), OTHER Routine 04/19/2024 12:07 EDT AFB CULTURE/SMEAR, OTHER Routine 04/19/2024 12:07 EDT CARDIAC CATHETERIZATION Routine 04/19/20 24 12:04 EDT Pericardial effusion with cardiac tamponade TRANSTHORACIC ECHO (TTE) COMPLETE Routine 04/19/2024 9:09 EDT SARS COV2, FLU A/B, RSV DETECT BY PCR Routine 04/19/2024 8:45 EDT EXPANDED RESPIRATORY VIRAL PANEL, PCR (DOES NOT INCLUDE INFLUENZA OR RSV) Routine 04/19/2024 8:45 EDT DOUBLE STRANDED DNA ANTIBODY, IGG Routine 04/19/2024 8:19 EDT HIV 1/2 ANTIGEN AND ANTIBODY, 4TH GENERATION Routine 04/19/2024 8:19 EDT ANTI NUCLEAR AB (EMIR), IFA Routine 04/19/2024 8:19 EDT COMPLETE BLOOD COUNT Routine 04/19/2024 8:19 EDT COMPREHENSIVE METABOLIC PANEL (CMP) Routine 04/19/2024 8:19 EDT XR CHEST PORTABLE 1 VIEW STAT 04/18/2024 22:05 EDT EKG 12-LEAD STAT 04/18/2024 21:10 EDT NT PRO BNP STAT 04/18/2024 21:10 EDT COMPLETE BLOOD COUNT AND DIFFERENTIAL STAT 04/18/2024 21:10 EDT COMPREHENSIVE METABOLIC PANEL (CMP) STAT 04/18/2024 21:10 EDT C REACTIVE PROTEIN STAT 04/18/2024 21 :10 EDT LACTIC ACID STAT 04/18/2024 21:10 EDT from Last 3 Months Results * ECG REPORT - SCANNED (04/26/2024 9:08 EDT) 04/26/2024 9:08 EDT Scan 2 Auxiliary Powerplant Operator PROCEDURE/MINOR CARMENZA GICAL ORDERABLES * ECG REPORT - SCANNED (04/23/2024 17:54 EDT) 04/23/2024 17:5 4 EDT Scan 2 Auxiliary Powerplant Operator PROCEDURE/MINOR CARMENZA GICAL ORDERABLES * TRANSTHORACIC ECHO (TTE) LIMITED W/O DOPPLER W/O CF NO CONTRAST (04/20/2024 9:56 EDT) LV Diastolic Volume 173 mL [facility] LV Systolic Volume 102 mL [facility] LV ejection fraction, 1-p A4C 60 % [facility] LV ejection fraction, 1-p A2C 61 % [facility] EF 61 % [facility] LV ID, ES, PLAX 4.7 2.1 - 4.0 cm [facility] LV PW thickness, ED, PLAX 0.8 0.6 - 1.1 cm [facility] LV ID, ED, PLAX 5.9 3.5 - 6.0 cm [facility] LV end-diastolic volume, 1-p A4C 145 ml [facility] LV end diastolic volume 1-p A2C 125 ml [facility] IVS thickness, ED, PLAX 0.8 cm [facility] GLS 18.2 % [facility] Anatomical Region Laterality Modality Ultrasound Narrative 04/20/2024 10:05 EDT ?Left??Ventricle: Left ventricular systolic function was normal with an ejection fraction of 60-65%. The left ventricular estimated ejection fraction by biplane Lakhani's method was 61%. ?Pericardium: There was no significant pericardial effusion. Left Ventricle The left ventricular cavity was normal in size. Left ventricular systolic function was normal with an ejection fraction of 60-65%. The left ventricular estimated ejection fraction by biplane Lakhani's method was 61%. Left ventricular wall thickness was normal. Left ventricular wall motion was normal; there were no regional wall motion abnormalities. Global longitudinal strain was normal. Global longitudinal strain was -18.2%. Right Ventricle The right ventricular cavity was normal in size. Right ventricular systolic function was normal. Left Atrium The left atrium was normal in size. Right Atrium The right atrium was normal in size. Pericardium There was no significant pericardial effusion. Study Details Study status: Routine. Transthoracic echocardiography. M-Mode, complete 2D, complete spectral Doppler, and color Doppler.The study was interpreted by [facility]. Pertinent images and digital data are archived for permanent storage and are available for subsequent review. Scanning was performed from the apical and parasternal acoustic windows. Overall the study quality was adequate. Images were obtained using cardiac ultrasound machine [id number] #[id number]. Shanae Osei MD CARDIAC ECHO ORDERA BLES * ECG REPORT - SCANNED (04/20/2024 9:03 EDT) 04/20/2024 9:03 EDT Scan 2 Auxiliary Powerplant Operator PROCEDURE/MINOR CARMENZA GICAL ORDERABLES * (ABNORMAL) COMPLETE BLOOD COUNT (04/20/2024 5:53 EDT) Only the most recent of2 resultswithin the time period is included. WBC 10.07 4.00 - 10.40 K/cmm 04/20/2024 6:28 [facility] RBC 4.63 4.36 - 5.78 M/cmm 04/20/2024 6:28 [facility] Hemoglobin 13.6(L) 13.8 - 17.3 g/dL 04/20/2024 6:28 [facility] HCT 39.9 39.5 - 50.2 % 04/20/2024 6:28 [facility] MCV 86 81 - 95 fL 04/20/2024 6:28 [facility] MCH 29.4 27.6 - 33.0 pg 04/20/2024 6:28 [facility] MCHC 34.1 32.8 - 36.4 g/dL 04/20/2024 6:28 [facility] RDW-CV 12.5 <14.2 % 04/20/2024 6:28 [facility] RDW-SD 39.4 <46.0 fl 04/20/2024 6:28 [facility] PLT 337 141 - 377 K/cmm 04/20/2024 6:28 [facility] MPV 10.2 9.5 - 12.7 fL 04/20/2024 6:28 [facility] Blood VENOUS BLOOD / Unknown Venipuncture / Unknown 04/20/2024 5:53 EDT 04/20/2024 6:22 EDT Greg Miranda MD HEMATOLOGY & PF 4 ORDERABLES Performing Organization Address City/[facility] Co de Phone Number [facility] [address] [place] [address] * (ABNORMAL) C REACTIVE PROTEIN (04/20/2024 5:53 EDT) Only the most recent of2 resultswithin the time period is included. [facility] C-Reactive Protein 237.5(H) <10.0 mg/L 04/20/2024 7:16 EDT [facility] Blood VENOUS BLOOD / Unknown Venipuncture / Unknown 04/20/2024 5:53 EDT 04/20/2024 6:26 EDT Shanae Osei MD CHEMISTRY & BLOOD G ORDERABLES Performing Organization Address [facility] Co de Phone Number [facility] [address] [place] [phone] * (ABNORMAL) COMPREHENSIVE METABOLIC PANEL (CMP) (04/20/2024 5:53 EDT) Only the most recent of3 resultswithin the time period is included. [facility] Sodium 139 136 - 145 mmol/L 04/20/2024 6:58 EDT [facility] Potassium 3.9 3.5 - 5.0 mmol/L 04/20/2024 6:58 T [facility] Chloride 105 96 - 110 mmol/L 04/20/2024 6:58 EDT [facility] CO2 Total 20(L) 22 - 32 mmol/L 04/20/2024 6:58 T [facility] Glucose 125(H) 70 - 99 mg/dl 04/20/2024 6:58 T [facility] BUN 23 10 - 26 mg/dL 04/20/2024 6:58 T [facility] Creatinine 0.91 0.66 - 1.25 mg/dL 04/20/2024 6:58 EDT [facility] eGFR 107 >60 mL/min/1.7 3m2 04/20/2024 6:58 T [facility] Total Protein 6.0(L) 6.3 - 8.2 g/dL 04/20/2024 6:58 [facility] Albumin 3.4 3.4 - 4.9 g/dL 04/20/2024 6:58 [facility] Alkaline Phosphatase 62 38 - 126 U/L 04/20/2024 6:58 [facility] AST 22 15 - 46 U/L 04/20/2024 6:58 [facility] ALT 54(H) <50 U/L 04/20/2024 6:58 [facility] Bilirubin, Total 0.6 <1.4 mg/dL 04/20/20 6:58 [facility] Calcium 8.7 8.5 - 10.5 mg/dL 04/20/2024 6:58 [facility] Albumin/Globulin Ratio 1.3 1.0 - 2.5 04/20/2024 6:58 [facility] Anion Gap 14 5 - 14 mmol/L 04/20/2024 6:58 [facility] Blood VENOUS BLOOD / Unknown Venipuncture / Unknown 04/20/2024 5:53 EDT 04/20/2024 6:26 EDT Greg Miranda MD CHEMISTRY & BLO OD GAS ORDERABLES Performing Organization Address [facility]/State/ZIP Co de Phone Number [facility] [address] [place] [phone] * NON PROJECT SCHEDULER/FNA CYTOLOGY (04/19/2024 12:07 EDT) Note to Patient The following pathology results have been interpreted by your pathologist and may be available to you before your health provider has had the opportunity to review them. Please allow time for your provider to receive these results and explore management options, if applicable. 04/20/2024 14:29 T [facility] Final Diagnosis A. PERICARDIAL FLUID, CYTOLOGIC EVALUATION: - Negative for malignant cells. - Background contains abundant red blood cells and mixed inflammatory cells. 04/20/2024 14:29 T [facility] Attestation By the signature below, the attending physician certifies that they have personally conducted a gross and/or microscopic examination of the described specimens and rendered or confirmed the above diagnosis. 04/20/2024 14:29 EDT [facility] at 1429 Clinical History early tamponade, pericardial effusion 04/20/2024 14:29 EDT [facility] Gross Description A. 400 cc's of dark red fluid were received and processed by selective cellular enhancement technique. 04/20/2024 14:29 EDT [facility] Performing Lab [facility] 04/20/2024 14:29 [facility] Scanned Images 04/20/2024 14:29 [facility] Fluid PERICARDIAL FLUID / Unknown 04/19/2024 12:07 EDT 04/19/2024 13:31 EDT Shanae Osei MD PATHOLOGY ORDERABLE S Performing Organization Address City/[facility]/ZIP Co de Phone Number [facility] [address] [place] [phone] * FLUID CELL COUNT (04/19/2024 12:07 EDT) RBC, Fluid 472,500 /cmm 04/19/2024 15:18 EDT [facility] Nucleated Cells, fluid 7,925 /cmm 04/19/2024 15:18 EDT [facility] Comment, fluid Moderately bloody Moderately cloudy 04/19/2024 15:18 EDT [facility] Fluid PERICARDIAL FLUID / Unknown 04/19/2024 12:07 EDT 04/19/2024 12:36 EDT Shanae Osei MD HEMATOLOGY & PF4 OR DERABLES [facility] [address] [place] [address] * AFB CULTURE/SMEAR, OTHER (04/19/2024 12:07 EDT) Organism ID No acid-fast bacilli isolated VITEK SUSCEPTIBILITY 06/15/2024 10:39 EDT [facility] AFB Smear No Acid Fast Bacilli Seen 06/15/2024 10:39 EDT [facility] Fluid PERICARDIAL FLUID / Unknown 04/19/2024 12:07 EDT 04/19/2024 12:36 EDT Shanae Osei MD MICROBIOLOGY - GENE RAL ORDERABLES Performing Organization Address [facility] Co de Phone Number [facility] [address] [place] [address] * HOLD FLUID (04/19/2024 12:07 EDT) Hold Hold 04/19/2024 13:46 EDT [facility] Fluid PERICARDIAL FLUID / Unknown 04/19/2024 12:07 EDT 04/19/2024 12:36 EDT Shanae Osei MD LAB INFO SERVICE AN D SUPPORT & PHONE RESULT Performing Organization Address [facility] Co de Phone Number [facility] [address] [place] [place], [place] [phone] * (ABNORMAL) ANAEROBE CULTURE/SMEAR(INC. AEROBES), OTHER (04/19/2024 12:07 EDT) Organism ID No Growth 04/24/2024 11:46 EDT [facility] Smear Neutrophils Present(A) 04/24/2024 11:46 EDT [facility] Smear No bacteria seen(A) 04/24/2024 11:46 EDT [facility] Fluid PERICARDIAL FLUID / Unknown 04/19/2024 12:07 EDT 04/19/2024 12:36 EDT Shanae Osei MD MICROBIOLOGY - GENE RAL ORDERABLES Performing Organization Address City/[facility]/ZIP Co de Phone Number [facility] [address] [place] [address] * FUNGUS CULTURE/SMEAR (04/19/2024 12:07 EDT) Organism ID No fungi isolated 05/17/2024 8:31 EDT [facility] Fungal Smear No Fungi Seen 05/17/2024 8:31 EDT [facility] Fluid PERICARDIAL FLUID / Unknown 04/19/2024 12:07 EDT 04/19/2024 12:36 EDT Shanae Osei MD MICROBIOLOGY - GENE RAL ORDERABLES Performing Organization Address [facility] Co de Phone Number [facility] [address] [place] [phone] * FLUID DIFFERENTIAL (04/19/2024 12:07 EDT) Neutrophils Fluid Relative 69 % 04/19/2024 15:20 EDT [facility] Lymphocytes Fluid Relative 19 % 04/19/2024 15:20 EDT [facility] [place]/Macrophage 12 % 15:20 EDT [facility] Fluid PERICARDIAL FLUID / Unknown 04/19/2024 12:07 EDT 04/19/2024 12:36 EDT Shanae Osei MD GEN LAB UNIT COLLEC T ORDERABLES [facility] [address] [place] [address] * PERICARDIAL TAP (04/19/2024 12:04 EDT) Anatomical Region Laterality Modality Communications Advisor 04/19/2024 11:0 6 EDT Narrative 04/24/2024 9:43 EDT Cardiology [address] [place] [phone] Pericardiocentesis Patient: Praful Perez Study Date: ??04/19/2024 ? : ? 1980 Referring: Deven Multani Diagnostic Attending: ??Dominick Romano Interventional Attending: ?? Dominick Romano ATTESTATION: I, Dr. Ayaka Martinez was the initial author of this report. Dr. Dominick Romano was present and supervising for the entire procedure. I, Dr. Dominick Romano have reviewed and agreed with the findings of this report. RESEARCH STUDY: Patient is not enrolled in any research studies. SUMMARY: 1. History of present illness: Dyspnea. Pericardial effusion. 2. Procedure narrative: Successful pericardiocentesis with removal of 425 cc of serosanguinous ?? pericardial fluid. RECOMMENDATIONS: Transthoracic echocardiography. Remove drain tomorrow if echo shows minimal pericardial effusion if drainage <50 cc in 24 hours. Follow fluid studies. HISTORY: Dyspnea. ??Risk factors: ??Obese. LABS, PRIOR TESTS, PROCEDURES AND SURGERY: Blood tests: ?Serum potassium (K) of 4 mEq/L. ??Serum creatinine (current admission) of 0.89 mg/dl. ??Blood urea nitrogen of 14 mg/dl. Platelet count of 276 th/uL. ??Hematocrit of 36.8%. ??Hemoglobin (pre-procedure) of 12.9 g/dl. STUDY DATA: Sex: male. Patient is 43year(s) old. Height: 182.9cm. Weight: 109.8kg. BSA: 2.39m^2. PROCEDURES PERFORMED: ?Access. ?Pericardiocentesis. ANESTHESIA: Conscious sedation was administered by cardiology staff. PROCEDURE: 1. A 5FR/12CM MICROPUNCTURE LONG sheath was advanced into the access access site. A catheter was ?? placed through the sheath in the access access site. 2. Pericardiocentesis was performed. A long, thin-walled needle was advanced, until fluid was ?? aspirated from the pericardial space. 3. Successful pericardiocentesis with removal of 425 cc of serosanguinous pericardial fluid. STUDY COMPLETION: Radiation exposure: ??Fluoroscopy time: 12.6min. Total time: 12.6min. Electronically signed by Dominick Romano MD 2024-04-24 09:42 Procedure Note Dominick Romano MD - 04/24/[address] [place] [address] Pericardiocentesis Patient: Praful Perez Study Date: 04/19/2024 : 1980 Referring: Deven Multani Diagnostic Attending: Dominick Romano Interventional Attending: Dominick Romano ATTESTATION: Dr. Ayaka Quarles was the initial author of this report. Dr. Dominick Romano was present and supervising for the entire procedure. Dr. Dominick Qaurles have reviewed and agreed with the findings of this report. RESEARCH STUDY: Patient is not enrolled in any research studies. SUMMARY: 1. History of present illness: Dyspnea. Pericardial effusion. 2. Procedure narrative: Successful pericardiocentesis with removal of 425cc of serosanguinous pericardial fluid. RECOMMENDATIONS: Transthoracic echocardiography. Remove drain tomorrow if echo shows minimal pericardial effusion if drainage <50 cc in 24 hours. Follow fluid studies. HISTORY: Dyspnea. Risk factors: Obese. LABS, PRIOR TESTS, PROCEDURES AND SURGERY: Blood tests: Serum potassium (K) of 4 mEq/L. Serum creatinine (current admission) of 0.89 mg/dl. Blood urea nitrogen of 14 mg/dl. Platelet count of 276 th/uL. Hematocrit of 36.8%. Hemoglobin (pre-procedure) of 12.9 g/dl. STUDY DATA: Sex: male. Patient is 43year(s) old. Height: 182.9cm. Weight: 109.8kg. BSA: 2.39m^2. PROCEDURES PERFORMED: Access. Pericardiocentesis. ANESTHESIA: Conscious sedation was administered by cardiology staff. PROCEDURE: 1. A 5FR/12CM MICROPUNCTURE LONG sheath was advanced into the accessaccess site. A catheter was placed through the sheath in the access access site. 2. Pericardiocentesis was performed. A long, thin-walled needle wasadvanced, until fluid was aspirated from the pericardial space. 3. Successful pericardiocentesis with removal of 425 cc of serosanguinouspericardial fluid. STUDY COMPLETION: Radiation exposure: Fluoroscopy time: 12.6min. Total time: 12.6min. Electronically signed by Dominick Romano MD 2024-04-24 09:42 Deven Garza CARDIAC CATH AIDEE LOVE * TRANSTHORACIC ECHO (TTE) COMPLETE W/DOPPLER W/CF NO CONTRAST (04/19/2024 9:09 EDT) [facility] Mitral deceleration time 243 ms [facility] AV DOI 0.99 [facility] LV Diastolic Volume 154 mL [facility] Systolic Volume 54 mL [facility] Mitral A-wave peak velocity 0.5 m/s [facility] Mitral E-wave peak velocity 0.7 m/s [facility] Mitral peak gradient, D 2 mmHg [facility] Aortic peak gradient, S 6 mmHg [facility] Aortic valve VTI, S 24.5 cm [facility] Aortic valve peak velocity, S 1.3 m/s [facility] LVOT VTI, S 20.7 cm [facility] LVOT peak velocity, S 1.2 m/s [facility] AV LVOT peak gradient 6 mmHg [facility] Velocity ratio, mean, LVOT/AV 0.85 [facility] Aortic mean gradient, S 4 mmHg [facility] LVOT mean gradient, S 3 mmHg [facility] LV ejection fraction, 1-p A4C 57 % [facility] LV ejection fraction, 1-p A2C 62 % [facility] Aortic valve mean velocity, S 0.9 m/s [facility] Ascending aorta ID, a-p 2.8 cm [facility] EF 60 % [facility] LV ID, ES, PLAX 3.6 2.1 - 4.0 cm [facility] C[facility] LV PW thickness, ED, PLAX 0.9 0.6 - 1.1 cm [facility] C[facility] LV ID, ED, PLAX 5.6 3.5 - 6.0 cm [facility] LV E/e', lateral 8.8 [facility] C[facility] LA volume, ES, BP 28.0 ml [facility] POINT OF CARE LA Atrial Length A2C 5.3 cm [facility]INT [facility] C[facility] LA volumes, ES, A4C 24.0 ml [facility] Pulmonic valve mean velocity, S 1 cm/s [facility] LA ID/bsa, A-P 1.8 cm/m2 [facility] C[facility] LA ID, A-P, ES 4.1 cm [facility] LV end-diastolic volume, 1-p A4C 82 ml [facility] LV end diastolic volume 1-p A2C 101 ml [facility]INT [facility] C[facility] LV E/e', lateral 8.4 [facility]INT [facility] C[facility] LV E/e', medial 7.3 [facility] POINT OF CARE LV e', lateral 8.80 cm/s [facility] POINT OF CARE LV e', medial 10.20 cm/s [facility]INT [facility] C[facility] LVOT mean velocity, S 0.8 m/s [facility]INT [facility] C[facility] IVS thickness, ED, PLAX 0.8 cm [facility]INT [facility] C[facility] LV E/e', average 8 [facility]INT [facility] C[facility] GLS 18.9 % [facility] POIN T OF CARE Anatomical Region Laterality Modality Ultrasound Narrative 04/19/2024 9:54 EDT ?Pericardium: A moderate pericardial effusion (measuring up to 2.9cm) was identified with focal strands circumferential to the heart. The RV appreared underfilled and there was accentuated respiratory variation of mitral inflow with nornal IVC size. This could indicate early tamponade physiology. ?Right??Ventricle: The right ventricular cavity was small in size. ?Right??Atrium: Right atrium was not well visualized. Right atrial cavity was small. ?Left??Ventricle: Left ventricular systolic function was normal with an ejection fraction of 60-65%. The left ventricular estimated ejection fraction by biplane Lakhani's method was 60%. Left Ventricle The left ventricular cavity was normal in size. Left ventricular systolic function was normal with an ejection fraction of 60-65%. The left ventricular estimated ejection fraction by biplane Lakhani's method was 60%. Left ventricular diastolic parameters were normal. Left ventricular wall thickness was normal. Left ventricular wall motion was normal; there were no regional wall motion abnormalities. Global longitudinal strain was normal. Global longitudinal strain was -18.9%. Right Ventricle The right ventricular cavity was small in size. Right ventricular systolic function was normal. Right ventricular wall thickness was normal. Left Atrium The left atrium was normal in size. Right Atrium Right atrium was not well visualized. Right atrial cavity was small. IVC/SVC The inferior vena cava was normal in size. Mitral Valve Mitral valve structure was normal. There was no significant mitral valve stenosis or regurgitation. Tricuspid Valve Tricuspid valve structure was normal. There was no significant tricuspid valve regurgitation. There was no tricuspid valve stenosis. Aortic Valve The aortic valve structure was trileaflet. The aortic leaflets were not thickened. There was no aortic valve stenosis. There was no aortic valve regurgitation. AV Peak Velocity: 1.3 m/s. AV Mean Gradient: 4 mmHg. Pulmonic Valve There was no significant pulmonic valve regurgitation. There was no pulmonic valve stenosis. Ascending Aorta The aorta was normal in size. Pericardium A moderate pericardial effusion (measuring up to 2.9cm) was identified with focal strands circumferential to the heart. The RV appreared underfilled and there was accentuated respiratory variation of mitral inflow with nornal IVC size. This could indicate early tamponade physiology. Pulmonic Artery Unable to assess PA pressure. Study Details Study status: Routine. Transthoracic echocardiography. M-Mode, complete 2D, complete spectral Doppler, and color Doppler.The study was interpreted by [facility]. Pertinent images and digital data are archived for permanent storage and are available for subsequent review. Scanning was performed from the apical, parasternal, subcostal and suprasternal acoustic windows. Overall the study quality was adequate. Images were obtained using cardiac ultrasound machine EPIQ #10. Critical Findings Cardiac tamponade physiology. First reported to Dr. Chambers by Pushpa Chavez RDCS on 04/19/2024 at 09:37 EDT. Correct read-back was verified. Subsequently reported to Dr Srinath Garza by Dominick on 04/19/2024 at 09:54 EDT. Deven Garza CARDIAC ECHO ORDE SUSANSARAH * SARS COV2, FLU A/B, RSV DETECT BY PCR (04/19/2024 8:45 EDT) FLU A RNA Result (FLARES) Negative Negative 04/19/2024 10:00 EDT [facility] FLU B RNA Result (FLBRES) Negative Negative 04/19/2024 10:00 EDT [facility] RSV RNA Result (RSVRES) Negative Negative 04/19/2024 10:00 EDT [facility] COVID-19 rt-PCR Result Negative Negative 04/19/2024 10:00 EDT [facility] Comment: Negative results do not preclude 2019-nCoV infection and should not be used as the sole basis for treatment or other patient management decisions. Negative results must be combined with clinical observations, patient history, and epidemiological information. Performed on the [employer] GeneXpert Instrument Swab NASOPHARYNGEAL STRUCTURE / Unknown Swab / Unknown 04/19/2024 8:45 EDT 04/19/2024 9:04 EDT Shanae Osei MD MICROBIOLOGY - [facility]ENE [facility] ORDERABLES [facility] [address] [place] [address] * EXPANDED RESPIRATORY VIRAL PANEL, PCR (DOES NOT INCLUDE INFLUENZA OR RSV) (04/19/2024 8:45 EDT) Pathologist [facility] Paraflu Type 1 Rslt (PF1RES) Negative Negative 04/19/2024 14:07 EDT [facility] Paraflu Type 2 Rslt (PF2RES) Negative Negative 04/19/2024 14:07 EDT [facility] Paraflu Type 3 Rslt (PF3RES) Negative Negative 04/19/2024 14:07 EDT [facility] Paraflu Type 4 Rslt Negative Negative 04/19 14:07 EDT [facility] Rhinovirus RNA Rslt (RVRES) Negative Negative 04/19/2024 14:07 EDT [facility] Metapneumovirus RNA Rslt (HMVRES) Negative Negative 04/19/2024 14:07 EDT [facility] Adenovirus DNA Rslt (ADVRES) Negative Negative 04/19/2024 14:07 EDT [facility] Swab NASOPHARYNGEAL STRUCTURE / Unknown Swab / Unknown 04/19/2024 8:45 EDT 04/19/2024 9:04 EDT Shanae Osei MD MICROBIOLOGY - [facility] ORDERABLES [facility] [address] [place] [address] * DOUBLE STRANDED DNA ANTIBODY, IGG (04/19/2024 8:19 EDT) Pathologist [facility] dsDNA Ab, IgG <22.0 <27.0 IU/mL 2024 11:50 EDT [facility] Comment: Negative: <27.0 IU/mL Indeterminate: 27.0 - 35.0 IU/mL Positive: >35.0 IU/mL Results were obtained with SwankA Flash dsDNA chemiluminescent immunoassay. Values obtained with different manufacturers' assay methods may not be used interchangeably. Blood VENOUS BLOOD / Unknown Venipuncture / Unknown 04/19/2024 8:19 EDT 04/19/2024 8:35 EDT Shanae Osei MD IMMUNOLOGY AND SERO LOGY ORDERABLES Performing Organization Address City/[facility]/ZIP Co de Phone Number [facility] [address] [place] [address] * HIV 1/2 ANTIGEN AND ANTIBODY, 4TH GENERATION (04/19/2024 8:19 EDT) HIV 1 and 2 Antibody/p24 Antigen, 4th Generation Negative Negative 04/19/2024 11:28 EDT [facility] Comment:If acute HIV-1 infec tion is suspected in a high risk patient, submit plasma specimen for HIV-1 RNA quantitation test. Blood VENOUS BLOOD / Unknown Venipuncture / Unknown 04/19/2024 8:19 EDT 04/19/2024 8:35 EDT Narrative [facility] - 04/19/2024 11:28 EDT Fourth Generation assay performed on the Siemens Sploreaur XPT. Shanae Osei MD IMMUNOLOGY AND SERO LOGY ORDERABLES Performing Organization Address [facility]/ZIP Co de Phone Number [facility] [address] [place] [address] * ANTI NUCLEAR AB (EMIR), IFA (04/19/2024 8:19 EDT) EMIR Interpretation Negative Negative 2023 13:44 EDT [facility] Comment:No titer performed, EMIR Screen is negative. Blood VENOUS BLOOD / Unknown Venipuncture / Unknown 04/19/2024 8:19 EDT 04/19/2024 8:35 EDT Narrative [facility] - 04/20/2024 13:44 EDT Results were obtained with the [employer] NOVA Lite HEp-2 EMIR Kit by indirect immunofluorescence. Shanae Osei MD IMMUNOLOGY AND SERO LOGY ORDERABLES Performing Organization Address City/[facility]/ZIP Co de Phone Number [facility] [address] [place] [address] * XR CHEST PORTABLE 1 VIEW (04/18/2024 22:05 EDT) Anatomical Region Laterality Modality Computed Radiogr aphy 04/19/2024 8:08 EDT Impressions 04/19/2024 8:08 EDT Enlarged cardiomediastinal silhouette, otherwise no acute abnormality identified. I have personally reviewed the images and the above interpretation and agree with the findings. [id number] Narrative 04/19/2024 8:08 EDT XR CHEST PORTABLE 1 VIEW ??04/18/2024 10:05 PM Clinical History/comments: cardiac tamponade; Comparison: None. Technique: Single portable AP view of the chest. Findings: Lines/tubes/devices: None. Lungs: Thin bibasilar linear atelectasis. No consolidation. Pleura: No visible abnormality. Cardiac and mediastinal contours: Enlarged cardiomediastinal silhouette. Soft tissues and extrathoracic findings: No significant finding. Bones: No discrete abnormality. Resulting Agency Comment [id number] Procedure Note Elier Cardoza MD - 04/19/2024 XR CHEST PORTABLE 1 VIEW 04/18/2024 10:05 PM Clinical History/comments: cardiac tamponade; Comparison: None. Technique: Single portable AP view of the chest. Findings: Lines/tubes/devices: None. Lungs: Thin bibasilar linear atelectasis. No consolidation. Pleura: No visible abnormality. Cardiac and mediastinal contours: Enlarged cardiomediastinal silhouette. Soft tissues and extrathoracic findings: No significant finding. Bones: No discrete abnormality. IMPRESSION Enlarged cardiomediastinal silhouette, otherwise no acute abnormalityidentified. I have personally reviewed the images and the above interpretation andagree with the findings. [id number] Greg Miranda MD IMG DIAGNOSTIC IMAGING ORDERABLES * EKG 12-LEAD (04/18/2024 21:10 EDT) 04/18/2024 21:1 0 EDT Narrative [facility] - 04/20/2024 8:57 EDT ? [facility] ? Test Date: ?2024-04-18 Pat Name: ? PRAFUL PEREZ ?Department: ?? [facility] [address] ? Room: ? [id number] Gender: ? Male ? 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 Requested By: ADITI CARREON Order Number: [id number] ? Reading MD: ?? MIREYA ZUNIGA MD ? Measurements Intervals ?[place] ? Rate: ? 93 ? P: ?10 UT: ? 129 ?QRS: ?41 QRSD: ? 96 ? T: ?30 QT: ? 336 ? QTc: ?419 ? Interpretive Statements SINUS RHYTHM Diffuse ST elevation consistent with pericarditis. No previous ECG available for comparison I reviewed the tracing and have either agreed or edited the findings in this report. Electronically Signed On 04-20-2024 08:57:39 EDT by MIREYA ZUNIGA MD. 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 No previous ECG available for comparison I reviewed the tracing and have either agreed or edited the findings inthis report. Electronically Signed On 04-20-2024 08:57:39 EDT by MIREYA SHERMAN. Greg Miranda MD CARDIAC ECG ORD ERABLES [facility] EKG * LACTIC ACID (04/18/2024 21:10 EDT) Lactic Acid 1.4 <=2.0 mmol/L 04/18/2024 21:35 EDT [facility] Blood VENOUS BLOOD / Unknown Venipuncture / Unknown 04/18/2024 21:10 EDT 04/18/2024 21:15 EDT Greg Miranda MD CHEMISTRY & BLO OD GAS ORDERABLES [facility] [address] [place] [phone] * (ABNORMAL) COMPLETE BLOOD COUNT AND DIFFERENTIAL (04/18/2024 21:10 EDT) WBC 12.48(H) 4.00 - 10.40 K/cmm 04/18/2024 21:30 [facility] RBC 4.79 4.36 - 5.78 M/cmm 04/18/2024 21:30 [facility] Hemoglobin 14.1 13.8 - 17.3 g/dL 04/18/2024 21:30 [facility] HCT 41.2 39.5 - 50.2 % 04/18/2024 21:30 [facility] MCV 86 81 - 95 fL 04/18/2024 21:30 [facility] MCH 29.4 27.6 - 33.0 pg 04/18/2024 21:30 [facility] MCHC 34.2 32.8 - 36.4 g/dL 04/18/2024 21:30 [facility] RDW-CV 13.1 <14.2 % 04/18/2024 21:30 [facility] RDW-SD 40.7 <46.0 fl 04/18/2024 21:30 [facility] PLT 320 141 - 377 K/cmm 04/18/2024 21:30 [facility] MPV 10.1 9.5 - 12.7 fL 04/18/2024 21:30 [facility] % Neutrophils 71.1 % 04/18/2024 21:30 [facility] % Lymphocytes 15.6 % 04/18/2024 21:30 [facility] % Monocytes 12.2 % 04/18/2024 21:30 [facility] % Eosinophils 0.4 % 04/18/2024 21:30 EDT [facility] % Basophils 0.2 % 04/18/2024 21:30 [facility] % Immature Grans 0.5 % 04/18/20 21:30 [facility] Absolute Neutrophils 8.87(H) 2.20 - 8.85 K/cmm 04/18/2024 21:30 [facility] Absolute Lymphocytes 1.95 1.09 - 3.30 K/cmm 04/18/2024 21:30 [facility] Absolute Monocytes 1.52(H) 0.10 - 0.80 K/cmm 04/18/2024 21:30 [facility] Absolute Eosinophils 0.05 0.03 - 0.61 K/cmm 04/18/2024 21:30 [facility] ABS Basophils 0.03 0.01 - 0.11 K/cmm 04/18/2024 21:30 [facility] Absolute Immature Grans 0.06 0.00 - 0.06 K/cmm 04/18/2024 21:30 [facility] Type of Differential: Auto 04/18/2024 21:30 [facility] Blood VENOUS BLOOD / Unknown Venipuncture / Unknown 04/18/2024 21:10 EDT 04/18/2024 21:17 EDT Greg Miranda MD PACKAGES & DNA PROBE ORDERABLES [facility] [address] [place] [address] * (ABNORMAL) NT PRO BNP (04/18/2024 21:10 EDT) NT-pro BNP 162(H) <125 pg/mL 04/18/2024 22:29 T [facility] Comment: In the acute setting NT-proBNP values <300 pg/mL have a 98% NPV for excluding acute heart failure. In outpatient populations, NT-proBNP values <125 have a 99% NPV for excluding heart failure. Blood VENOUS BLOOD / Unknown Venipuncture / Unknown 04/18/2024 21:10 EDT 04/18/2024 21:15 EDT Greg Miranda MD CHEMISTRY & BLO OD GAS ORDERABLES [facility] [address] [place] [address] from Last 3 Months Insurance Payer Benefit Plan / Group Subscriber ID Effective Dates Phone Address Type [facility] [id number] 2022-Present [address] [place] [address] [facility] GL Advance Directives For more information, please contact: [phone] * Full Code (Latest Code Status on File) Date Activated Date Inactivated Comments 04/18/2024 20:58 04/20/2024 19:05 Question Answer Comments When the patient has NO PULSE: Full Code / CPR Who Made the Decision? 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
--- OUTSIDE RECORDS SUMMARY | 2024-07-01 22:54 | XMS_ITS | Encounter Summary ---
Author Organization [facility] [place] [address] Care Team Providers Care Medical Device Sales Representative Name Role Phone Unavailable Primary Care Provider Unavailabl e Reason for Referral * Diagnostic Test (Routine) - Closed Specialty Diagnoses / Procedures Referred By Pooja brooke Referred To Contact Cardiology Diagnoses Acute pericarditis, unspecified type Procedures Mobile Marah Hanley MD [address] [place] [address] [place] [address] [facility] [place] [address] Referral ID Status Reason Start Date Expiration Date V isits Requested Visits Authorized [id number] Closed Specialty Service Requested 04/18/2024 04/18/2025 1 1 Reason for Visit * Diagnostic Test (Routine) - Closed Specialty Diagnoses / Procedures Referred By Contela brooke Referred To Contact Cardiology Diagnoses Acute pericarditis, unspecified type Procedures Mobile Marah Hanley MD [address] [place] [address] [place] [address] [facility] [place] [address] Referral ID Status Reason Start Date Expiration Date V isits Requested Visits Authorized [id number] Closed Specialty Service Requested 04/18/2024 04/18/2025 1 1 Encounter Details Date Type Department Care Team (Latest Contact Info) Description 04/18/2024 12:10 PM EDT - 04/18/2024 11:59 PM EDT Hospital Encounter Mobile [place] [address] Marah Campbell MD [address] [place] [address] [place] [address] Acute pericarditis, unspecified type Discharge Disposition: Home Social History Tobacco Use Types Packs/Day Years [...] 2:07 PM EDT Acute pericarditis, unspecified type documented in this encounter Results * ECHO COMPLETE (04/18/2024 2:07 PM EDT) EF 52 HEARTLAB SYSTEM Anatomical Region Laterality Modality Other 04/18/2024 10:3 5 AM EDT Narrative 04/18/2024 2:55 PM EDT [address] [place] [address] ? Echocardiogram Report Name: PRAFUL PEREZ ?Study Date: 04/18/2024 10:35 AMBP: 138/89 mmHg ? Patient Location: 4A : 1980 ? Account: [id number] Age: 43 yrs Gender: Male Ordering Physician: MARAH CAMPBELL Referring Physician: MARAH CAMPBELL Reason For Study: Acute Pericarditis Exam Location: [facility]. Interpretation Summary 1. The left ventricle [...] hemodynamic compromise communicated to responsible team at [facility]. Procedure Complete-[id number]. Satisfactory quality. There is normal sinus rhythm. [...] Note Shannon Medina MD - 04/18/2024 [address] [place] [address] Echocardiogram Report Name: PRAFUL PEREZ Study Date:04/18/2024 10:35 AMBP: 138/89 mmHg Patient Location: : 1980 Account: [id number] Age: 43 yrs Gender: Male Ordering Physician: MARAH CAMPBELL Referring Physician: MARAH CAMPBELL Reason For Study: Acute Pericarditis Exam Location: [facility]. Interpretation Summary 1. The left ventricle [...] for hemodynamic compromise communicated toresponsible team at [facility]. Procedure Complete-[id number]. Satisfactory quality. There is normal sinus rhythm. [...] Aneurysmal 15-16diffuse Marah Campbell MD ECHO ORDERABLES documented in this encounter Visit Diagnoses Diagnosis Acute pericarditis, unspecified type documented in this encounter
--- OUTSIDE RECORDS SUMMARY | 2024-07-01 22:54 | XMS_ITS | Encounter Summary ---
Author Organization [facility] Address [facility] [place] [address] Care Team Providers Care Formulator Compounder Name Role Phone Unavailable Primary Care Provider Unavailabl e Encounter Details Date Type Department Care Team (Late st Contact Info) Description 04/17/2024 Telephone Cardiology at [address] [phone] Bashir Garrett MD [facility] [place] [address] Social History Tobacco Use Types Packs/Day Years Used Date Smoking Tobacco: Never Assessed Sex and Gender Information Value Date Recorded Sex Assigned at Not on file Gender Identity Not on file Sexual Orientation Not on file documented as of this encounter Miscellaneous Notes * Telephone Encounter - Bashir Garrett MD - 04/17/2024 4:04 PM EDT Telephone Triage Note Initial Contact Date: 04/17/24 Initial Contact Time: 1529 Patient Location: [facility] Presenting Symptoms per OSH: 43 year old male, no personal or family history of cardiovascular disease, who felt unwell 1.5 weeks ago with emesis. He soon felt better and was doing fine until this past Tuesday, when he developed exertional chest heaviness/squeezing, non-radiating, non-pleuritic, lasting the entire day before self-resolving. Around 7am today, while letting his dog out and walking upstairs, he experienced chestdiscomfort again with SOB and diaphoresis. No syncope, orthopnea, PND, or edema. Went to family doctor, who performed EKG which was concerning for STEMI. EMS was called, who gave him ASA 325 mg and brought him to the emergency department for further evaluation. Afebrile, BP 145/54, HR 90, saturating well on room air. WBC 12, no anemia or thrombocytopenia. Electrolytes and renal function within normal limits. ESR 24, CRP 3.36. Covid, flu, and RSV negative. EKG with ST elevations and AK depressions. POCUS showed no wall motion abnormalities and 1.1 cm pericardial effusion, no tamponade physiology. Pertinent Diagnostic Findings: See above OSH Interventions: See above Plan: -Discussed with interventional cardiology team. -Given possibly viral symptoms recently, ST elevations and AK depressions on EKG, and pericardial effusion on echo, recommended treating empirically with NSAIDS+colchicine and formal echocardiogram -Outside provider will alert us if any changes in clinical status Above recommendations/plans are based on my conversation with the referring provider. I have not personally interviewed or examined this patient. Bashir Garrett MD Sales And Merchandising Associate documented in this encounter Plan of Treatment Not on file documented as of this encounter Visit Diagnoses Not on filedocumented in this encounter
--- OUTSIDE RECORDS SUMMARY | 2024-07-01 22:55 | XMS_ITS | Encounter Summary ---
Author Organization [facility] Address [address] [place] [address] Care Team Providers Care Community Midwife Name Role Phone Med Evelyn Johnson NP Primary Care Provider [phone] Reason for Referral * Follow Up (Routine/Next Available) - New Request Specialty Diagnoses / Procedures Referred By Pooja brooke Referred To Contact Diagnoses Pericardial effusion with cardiac tamponade Pericardial effusion Shanae Osei MD [address] [place] [id number] Referral ID Status Reason Start Date Expiration Date Visits Requested Visits Authorized [id number] New Request Continuity of Care 04/20/2024 1 1 Question Answer Reason for Request: hospital follow up, pericardial effusion, pericarditis * Follow Up (Routine/Next Available) - Receiving Office to Obtain Authorization Specialty Diagnoses / Procedures Referred By Pooja brooke Referred To Contact Cardiology Diagnoses Pericardial effusion with cardiac tamponade Pericardial effusion Shanae Osei MD [address] [place] [address] Heaven Biswas MD 62 [facility] [address] [place] [phone] Referral ID Status Reason Start Date Expiration Date Visits Requested Visits Authorized [id number] Receiving Office to Obtain Authorization Specialty Services Required 4 1 1 Question Answer Reason for Request: Percardial effusion, pericarditis f/u Comments Pericarditis clinic Reason for Visit * Auth/Cert (Routine) Specialty Diagnoses / Procedures Referred By Pooja brooke Referred To Contact Diagnoses Pericardial effusion with cardiac tamponade PERICARDITIS Referral ID Status Reason Start Date Expiration Date Visits Re quested Visits Authorized [id number] 1 1 Encounter Details Date Type Department Care Team (Latest Contact Info) Description 04/18/2024 20:28 EDT - 04/20/2024 17:00 EDT Hospital Encounter [facility] [address] [place] [address] [phone] Delgado Kiser MD 62 [facility] [address] [place] [phone] Ronit Mejia MD [address] [phone] Pericardial effusion with cardiac tamponade (Primary Dx); Pericardial effusion; Subacute effusive constrictive pericarditis; Pericardial tamponade Discharge Disposition: Home or Self Care Social History Tobacco Use Types Packs/Day Years Used Date Smoking Tobacco: Never Smokeless Tobacco: Never Tobacco Cessation:Counseling Given: No Alcohol Use Standard Drinks/Week Comments Never 0 (1 standard drink = 0.6 oz pur e alcohol) [facility] Utilities Answer Date Recorded In the past 12 months has th e [employer], gas, oil, or water [place] threatened to shut off services in your [...] time in the past 12 m [facility], were you homeless or living in a fci (including now)? No 04/19/2024 Interpersonal Safety Answer Date Record ed How often does anyone, keerthi case family, hit, punch or physically hurt you? 04/18/2024 How often does anyone, chichigillian manpreet family, insult, scream, curse or threaten to hurt you? 04/18/2024 Sex and Gender Information Value Date Recorded Sex Assigned at Not on file Gender Identity Not on file Sexual Orientation Not on file documented as of this encounter Last Filed Vital Signs Vital Sign Reading [...] Body Mass Index 32.81 04/19/2024 1200 EDT documented in this encounter Functional Status Functional Status Response Date of Assess ment Are you deaf or do you have serious difficulty h earing? No 04/18/2024 Are you blind or do you have serious difficulty seeing, even when wearing glasses? No 04/18/2024 Do you have serious difficul ty walking or climbing stairs? (5 years old or older) No 04/18/2024 Do you have difficulty dress ing or bathing? (5 years old or older) No 04/18/2024 Because of a physical, menta l, or emotional condition, do you have difficulty doing errands alone such as visiting a doctor's office or shopping? (15 years old or older) No 04/18/2024 Cognitive Status Response Date of Assessm ent Because of a physical, menta l, or emotional condition, do you have serious difficulty concentrating, remembering, or making decisions? (5 years old or older) No 04/18/2024 documented as of this encounter Discharge Summaries * Ronit Mejia MD - 04/19/2024 1013 EDT Images from the original note were not included. Cardiology Discharge Summary Attending attestation: I evaluated the patient (on 04/20/2024) and agree with the discharge summary as outlined by Dr. Osei. 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 Mr. Perez wasdischarged on prednisone and colchicine and will follow-up in our pericardial clinic. Cytology was negative for cancer cells. Ronit Mejia MD Attending [facility] Primary Care Provider: Evelyn Jovel Attending Physician: Ronit Mejia,* Admit Date: 04/18/2024 Discharge Date: 04/20/2024 Disposition: Home or self care Problems and Procedures Admitting Diagnosis: Pericardial effusion with cardiac tamponade Final Hospital Diagnosis: Subacute Effusive constrictive Pericarditis Additional Problems Managed in the Hospital Active Hospital Problems Diagnosis Date Noted *Pericardial effusion with cardiac tamponade 04/18/2024 Subacute effusive constrictive pericarditis 04/19/2024 Pericardial tamponade 04/19/2024 Resolved Hospital Problems No resolved problems to display. Principal Procedure: pericardiocentesis Date: 04/19/2024 Secondary Procedures: Not applicable Hospital Course Praful Perez is a 43 y.o. M with PMHx of IVDU who initially presented to [facility] for several days of chest pain after GI illness, and was then transferred to [facility] for pericarditis with pericardial effusion concerning for tamponade physiology. Initial EKG (04/18) with ST segment elevations. Echo at [facility] showed moderate/large effusion (2.3 cm) with concern of RV diastolic collapse and dilated IVC and septal bounce. Respiratory panel negative. Colchicine and prednisone started for pericarditis. Limited TTE done 04/19 showed mitral inflow variation with respiration, a moderate pericardial effusion (2.9 cm) and an under filled RV. Pericardiocentesis performed on 04/19, removed 425 cc of serosanguinous fluid. Cytology and culture pending. Drain clamped and removed 04/20 after post-clamed TTE showed no re-accumulation of fluid. Mr. Perez remained stable after chest drain removal. He was started on colchicine 0.6 mg BID, which should be continued for 6 months, and prednisone 50 mg daily, which should be continued at 50 mg for 2 weeks and then tapered slowly off (initial taper sent). Referral plaed for follow up with Pericarditis clinic at [facility] at [facility] and PCP follow up. Allergies and Immunizations Allergies Allergen Reactions Penicillins Anaphylaxis Sulfa (Sulfonamide Antibiotics) Anaphylaxis Morphine Rash Tolerated hydromorphone 04/19/24 There is no immunization history on file for this patient. Transition of Care Plans Condition at Discharge Stable Assessment at Discharge Vitals: 04/20/24 0606 04/20/24 0700 04/20/24 0749 04/20/24 0849 BP: 112/84 118/83 BP Cuff Location: Left arm Left arm BP Patient Position: Semi fowlers Semi fowlers Pulse: Resp: 16 18 Temp: 37.1 ??C (98.8 ??F) 36.9 ??C (98.4 ??F) TempSrc: Oral SpO2: 93% 92% 96% 94% Weight: Height: Is the patient being discharged with a diagnosis of Systolic Heart Failure? No Coumadin Management N/A Non-Cardiac Studies at Time of Discharge none Results Pending at Discharge Test results still pending from this admission Procedure Component Value Units Date/Time Fungus Culture/Smear, Other [[id number]] Collected: 04/19/241206 Lab Status: Preliminary result Specimen: Fluid, Pericardial Fluid Updated: 04/20/24 1305 Fungal Smear No Fungi Seen ANAEROBE CULTURE/SMEAR(INC. AEROBES), OTHER [[id number]] (Abnormal) Collected: 04/19/241206 Lab Status: Preliminary result Specimen: Fluid, Pericardial Fluid Updated: 04/19/24 1457 Smear Neutrophils Present No bacteria seen AFB Culture/Smear, Other [[id number]] Collected: 04/19/241206 Lab Status: In process Specimen: Fluid, Pericardial Fluid Updated: 04/19/24 1236 Anti DNA (Double Strand) [[id number]] Collected: 04/19/24 0819 Lab Status: In process Specimen: Blood, Venous Updated: 04/19/24834 Last Lab Results at Discharge BUN: Lab Results Component Value Date BUN 23 04/20/2024 Creatinine: Lab Results Component Value Date CREATININE 0.91 04/20/2024 CBC: Lab Results Component Value Date WBC 10.07 04/20/2024 RBC 4.63 04/20/2024 HGB 13.6 (L) 04/20/2024 HCT 39.9 04/20/2024 MCV 86 04/20/2024 MCH 29.4 04/20/2024 MCHC 34.1 04/20/2024 PLT 337 04/20/2024 DIFFTYPE Auto 04/18/2024 Electrolytes: Lab Results Component Value Date NA 139 04/20/2024 K 3.9 04/20/2024 CL 105 04/20/2024 CO2 20 (L) 04/20/2024 Discharge Follow Up Appointments We Recommend but have not been Scheduled Primary care physician appointment within 1 week Appointment with Pericarditis Clinic at [facility] on [address] documented in this encounter Medications at Time of Discharge Medication Sig Dispensed Refills Start Date End Date colchicine (COLCRYS) 0.6 mg tablet Take 1 Tablet by mouth 2 times daily for 180 days. 60 Tablet 5 04/20/2024 10/17/2024 predniSONE (DELTASONE) 1 mg tablet Take 7.5 Tablets by mouth daily for 7 days, THEN 5 Tablets daily for 7 days, THEN 2.5 Tablets daily for 7 days, THEN 1 Tablet daily for 7 days. 112 Tablet 06/15/2025 07/13/2025 atovaquone (MEPRON) 750 mg/5 mL suspension Take 10 mL by mouth every 24 hours for 45 days. 450 mL 04/20/2024 06/04/2024 predniSONE (DELTASONE) 10 mg tablet Take 5 Tablets by mouth daily for 14 days, THEN 4 Tablets daily for 7 days, THEN 3 Tablets daily for 7 days, THEN 2.5 Tablets daily for 7 days, THEN 2 Tablets daily for 7 days, THEN 1.5 Tablets daily for 7 days, THEN 1 Tablet daily for 7 days. 168 Tablet 04/20/2024 06/15/2024 documented as of this encounter Ordered Prescriptions Prescription Sig Dispensed Refills Start Date End Da te colchicine (COLCRYS) 0.6 mg tablet Take 1 Tablet by mouth 2 times daily for 180 days. 60 Tablet 5 04/20/2024 10/17/2024 predniSONE (DELTASONE) 1 mg tablet Take 7.5 Tablets by mouth daily for 7 days, THEN 5 Tablets daily for 7 days, THEN 2.5 Tablets daily for 7 days, THEN 1 Tablet daily for 7 days. 112 Tablet 06/15/2025 07/13/2025 atovaquone (MEPRON) 750 mg/5 mL suspension Take 10 mL by mouth every 24 hours for 45 days. 450 mL 04/20/2024 06/04/2024 predniSONE (DELTASONE) 10 mg tablet Take 5 Tablets by mouth daily for 14 days, THEN 4 Tablets daily for 7 days, THEN 3 Tablets daily for 7 days, THEN 2.5 Tablets daily for 7 days, THEN 2 Tablets daily for 7 days, THEN 1.5 Tablets daily for 7 days, THEN 1 Tablet daily for 7 days. 168 Tablet 04/20/2024 06/15/2024 colchicine (COLCRYS) 0.6 mg tablet Take 1 Tablet by mouth 2 times daily for 90 days. 60 Tablet 2 04/20/2024 04/20/2024 atovaquone (MEPRON) 750 mg/5 mL suspension Take 10 mL by mouth every 24 hours. 30 mL 04/20/2024 04/20/2024 documented in this encounter Discharge Disposition Disposition Code Departure Means Destination Comment s Home or Self Prison documented in this encounter Progress Notes * Dilcia Anguiano MSW - 04/19/2024 0950 EDT Initial Case Management/Social Work Assessment and Discharge Plan/Readmission Risk Assessment REASON FOR ADMISSION: Pericardial effusion with cardiac tamponade Patient understands reason for admission: Yes PATIENT INFO VERIFIED: PCP Type of housing (single family, condo, apartment, [place] [facility], single room occupancy, [facility] funded hotel room, group fci) - [facility] Who does the patient live with? Spouse who is expecting in 7 more weeks Does the patient have access to their own bedroom/bathroom/kitchen - or is it shared with others? own Name of housing complex (ex [facility], [facility], etc)- n/a Housing Authority/Managing Organization - n/a Community Care Providers (field nurse case manager, [facility] nurse, etc) name and contact information- n/a Discharge Delay Risk Assessment 2. Hospitalization: Unplanned admission Major Barrier day total 1-6: 1 Minor or major discharge risk delay(s) present?: No discharge barriers identified Does the patient meet criteria to be escalated?: No LIVING ARRANGEMENTS AND ACCESSIBILITY ISSUES: Living Arrangements: Private residence, Spouse / significant other Levels: 2 Stairs to enter: 1 Handicap access: Railings to upstairs Bathroom located on bedroom level?: Yes What in home social supports are available to the patient? Spouse / significant other Is 02/05 care available? Yes ADVANCED DIRECTIVES, POA &/or COLST IN PLACE: Healthcare Directive: No, patient does not have advance directive for healthcare treatment Information Provided on Healthcare Directives: No Information on Healthcare Directives Requested: No DIRECTIVES FOR FINANCES: Directive For Finances: No TRANSPORTATION: Transportation: Family Does the patient need discharge transport arranged?: No Expected Discharge on IV Antibiotics: No Transportation Additional Details: will take him home Final Discharge Destination: Home with CULTURAL, QUAKER and/or LANGUAGE factors affecting health care/discharge planning: Spiritual/Cultural Requests: None Insurance Information: Medical Insurance: Yes Type of insurance: Commercial insurance Commercial coverage: [place] Referred to patient financial services: No Nutrition: DISCHARGE RISK ASSESSMENT: Total # selected above: Score: Zero Tentative plan to address the risk of re-hospitalization for those at HIGH MODERATE RISK: RAPT TOOL: Gender: Male Ambulation distance: 2 or more blocks (600ft) Gait device: None Will you live with someone who will care for you?: Yes RAPT Tool Score: 9 Expected Discharge Disposition: Home or Self Care SBIRT: SASQ (Single Alcohol Screening Question) How many times in the past year have you had 5 or more drinks in a single day?: Never How many times in the past year have you used an illegal drug or used a prescription medication fornon-medical reasons?: Never Intervention in place/initiated?: No, not indicated FUNCTIONAL STATUS: Activities patient requires assistance: None Assistive Devices: None COMMUNITY RESOURCES/SUPPORTS: Primary Care Provider: Evelyn Jovel PCP Verified: Specialists: Type of Home Health Services: None DME Provider: Pharmacy: No Pharmacies Listed Home Health: Other: POST HOSPITAL TRANSITION PLAN: Phone assessment completed with pt's spouse at bedside. She plans to remain at the hospital with her until after his procedure. 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 Explained role of CM and will remain available as needed. No other CM needs noted at this time. ISAÍAS Muñoz Litigation Paralegal ISAÍAS MUÑOZ 04/19/2024 9:50 * Shanae Osei MD - 04/19/2024 0718 EDT Cardiology Progress note Service Date: 04/19/2024 Admit Date: 04/18/2024 20:28 Reason for Admission: 43 y.o. male admitted with a chief complaint of chest pain and now with a principal diagnosis of pericarditis. Events/ Procedures in the last 24 Hours: - admitted to Cardiology unit - limited TTE Subjective/Objective Subjective Mr. Perez is resting in bed comfortably. Confirms lack of cardiac history. Continues to endorse constant chest discomfort that is partially relieved by lying on his left side. Reports one episode of nausea and vomiting in last 24 hrs. Notes he slept well overnight. Denies family history of autoimmune diseases. Denies joint swelling, tenderness or pain. Denies shortness of breath, though endorses mild increase in chest discomfort on inspiration. Has never experienced this before. Review of Systems Denies headache, lightheadedness, dizziness, changes in vision, chest palpitations, abdominal pain,nausea, vomiting, lower extremity pain, changes in urinary habits, changes in bowel habits. Objective Vital Signs Patient Vitals for the past 8 hrs: BP Pulse Heart Rate Resp Temp SpO2 04/19/24 0829 113/69 -- 83 BPM -- 37.3 ??C (99.2 ??F) 94 % 04/19/24 0455 116/88 84 -- 18 37.1 ??C (98.8 ??F) 93 % Weight: No data found. No intake or output data in the 24 hours ending 04/19/24 1000 Physical Exam General appearance: alert, cooperative, no distress Skin: Color, temperature normal. No rashes or lesions HEENT: MMM, no scleral icterus, EOM intact, no cervical lymphadenopathy Lungs: CTAB, non labored breathing, speaking in full sentences Heart: RRR, no m/r/g, no friction rub heard Abdomen: soft, non-tender; bowel sounds normal : No [place] present Neurologic: moving all extremities spontaneously, no facial droop or dysarthria Mental Status: awake, A/O x4 Extremities: warm, no edema Medications Available for review in EPIC Labs CBC: Recent Labs 04/18/24210904/19/24 0819 WBC 12.48* 10.34 HGB 14.1 12.9* HCT 41.2 36.8* MCV 86 84 PLT 320 276 BMP: Recent Labs 04/18/24210904/19/24 0819 CREATININE 1.04 0.89 BUN 14 14 NA 138 138 K 3.9 4.0 CL 101 103 CO2 26 21* CALCIUM 9.0 8.7 LFTs: Recent Labs 04/18/24210904/19/24 0819 ALT 89* 74* AST 42 33 ALKPHOS 60 59 TBIL 0.7 0.7 Imaging: No new imaging Assessment/Plan Assessment/Plan Praful Perez is a 43 y.o. M with history of IVDU who initially presented to [facility] for several days of chest pain after GI illness, transferred to [facility] for pericarditis with pericardial effusion concerning for tamponade physiology. Initial EKG concerning for inferior STEMI. Echo at [facility] showed moderate/large effusion (2.3 cm) with concern of RV diastolic collapse and dilated IVC and septal bounce. Respiratory panel negative. Limited TTE done today showed mitral inflow variation with respiration, a moderate pericardial effusion (2.9 cm) and an under filled RV. Plan for pericardiocentesis later today. Will continue to monitor symptoms and medically manage with prednisone and colchicine. Plan #Pericarditis with effusion #early tamponade physiology Echo at [facility] showed effusion (2.3 cm), RV diastolic collapse, dilated IVC with septal shift. Vital signs stable. TTE (04/19) showed signs of early tamponade. Plan for pericardiocentesis. - colchicine 0.6 mg BID - start prednisone 50 mg daily - consider PGP prophylaxis if extended course is needed - d/c ibuprofen 800 mg TID - pericardiocentesis this afternoon - limited TTE after drain placement - f/u HIV, EMIR, dsDNA - trend CRP Diet: REGULAR DIET DIET NPO TIME SPECIED Bowel regimen: Senna & polyethylene glycol daily PRN VTE Prophylaxis Hold chemo PPx Discharge Plan Pending clinical course MICHAEL Martinez 04/19/24 10:00 I was present with the medical student for the history, exam, and medical decision making documented. I have edited the medical student note in pink as appropriate. Toña Osei MD Internal Medicine PGY-3 Epic Chat preferred, #[phone](via PAS) 04/19/24 11:04 Associated attestation - Ronit Mejia MD - 04/19/2024 6193 EDT The patient was seen and evaluated by MICHAEL Martinez under the direct supervison of Dr. Osei. I have also independently seen and examined the patient. I agree with the assessment and plan as outlined below. Praful Perez is a 43-year-old gentleman. 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 He is status post pericardiocentesis. We will treat aggressively with prednisone and colchicine. If cytology is positive for malignancy, these therapeutic agents will be discontinued. We will monitor him closely over the next couple days. Ronit Mejia MD Attending [facility] Note: The Echo System dictation software was used to generate this note. Dragon sometimes generates mistakes; I did my best to identify and correct any mistakes. documented in this encounter H&P Notes * Greg Chan MD - 04/18/20242050 EDT Cardiology History and Physical Service Date: 04/18/2024 Admit Date: 04/18/2024 20:28 Primary Care Provider: Evelyn Jovel Chief Complaint: chest pain HPI Praful Perez is a 43 y.o. male with no significant past medical history who initially presented to [facility] for several days of chest pain after GI illness, now transferred to [facility] for pericarditis with pericardial effusion concerning for tamponade physiology. States he initially had onset of severe nausea, vomiting, and diarrhea on 04/07/2024. Believes he vomited more than 15 times that day, with accompanying diarrhea as well. [place] subjectively febrile, did not check a temperature, and felt better within 24 hours, but then on 04/10/2024 began to have onsetof central chest pain with some associated shortness of breath. Pain was worse with deep inspiration and improved with leaning forward. Also still felt subjectively febrile, for which he took acetaminophen and ibuprofen, finally with improvement of his chest pain about 24 to 48 hours later. On 04/13/2024 he had return of chest pain, even more severe than prior, and this continued for several days, t kemal he does note pain was improved again on 04/16/2024 as he went and played golf with minimal issue. On 04/17, return of chest pain with shortness of breath, prompting him to call [facility], where he was found to have an EKG initially concerning for STEMI due to ST elevations in leads II, III, aVF. He wasbrought to [facility], where he was found to have a clinical picture most consistent with pericarditis with an effusion that was seen on POCUS, appeared to be about 1 cm. He was started on colchicine BID and ibuprofen TID. Formal echocardiogram showed moderate to large sized effusion measuring about 2.3 cm, as well as concern for right ventricular diastolic collapse, dilated IVC with minimal respiratory variation, and septal bounce. His case was discussed with [facility], who declined transfer due to being at capacity. Subsequently his case was discussed with cardiology at [facility], who accepted him for transfer. Upon arrival, he continues to endorse mild chest pain still worsened with deep inspiration and improved with leaning forward, though notes that his shortness of breath seems slightly improved. Has mild nausea, subjective fever, and endorses decreased appetite with an episode of vomiting prior to transfer. Denies abdominal pain, diarrhea, leg swelling. Endorses daily heavy marijuana use prior to admission, but denies tobacco use, other recreational substances, history of IVDU. No personal history of HTN, HLD, DM, though previously had prediabetes that improved. Denies known family history of cardiac disease. Review Of Systems: Full 10 point ROS obtained, pertinent findings noted in HPI. Prior Cardiac History: None LHC: none Echocardiogram: Formal echocardiogram at [facility] showed moderate to large sized effusion measuring about 2.3 cm, as well as concern for right ventricular diastolic collapse, dilated IVC with minimal respiratory variation, and septal bounce. Cardiac risk factors: CAD: no Smoking: no HTN: no HLD: no DM: no Family history: none known PMH PSH No past medical history on file. No past surgical history on file. Social History Family History Social History Tobacco Use Smoking status: Not on file Smokeless tobacco: Not on file Substance Use Topics Alcohol use: Not on file No family history on file. Medications No medications prior to admission. Allergies Allergies Allergen Reactions Penicillins Anaphylaxis Sulfa (Sulfonamide Antibiotics) Anaphylaxis Morphine Rash Objective Vitals Temp: [35.9 ??C (96.6 ??F)-37.9 ??C (100.2 ??F)] , Heart Rate: [81 BPM] , Pulse: [84] , Resp: [18-20] , BP: (127-142)/(86-98) , SpO2: [94 %-96 %] , Numeric Pain Level (Scale 1-10): 8 Weight : (!) 109.8 kg (242 lb) Body mass index is 32.82 kg/m??. Physical Exam: BP (!) 142/98 (BP Cuff Location: Left arm, BP Patient Position: Semi fowlers) Temp 37.9 ??C (100.2 ??F) (Tympanic) Resp 20 Ht 182.9 cm (72) Wt (!) 109.8 kg (242 lb) SpO2 94% BMI 32.82 kg/m?? Gen: Awake, alert, NAD, lying in bed comfortably HEENT: MMM, NC/AT CV: Distant heart sounds, tachycardic but regular, no rub appreciated Resp: CTAB, no increased work of breathing Abd: Soft, nontender, nondistended Extremities: WWP, no pitting edema, 2+ DPs bilaterally Neuro: Oriented, alert, appropriate. Mentating and conversing appropriately. Moving all extremitiesspontaneously Psych: Appropriate mood and affect Labs Reviewed in Epic and Significant for: CBC Recent Labs 04/18/24 2110 WBC 12.48* RBC 4.79 HGB 14.1 HCT 41.2 MCV 86 MCH 29.4 MCHC 34.2 PLT 320 NEUTROABS 8.87* BMP: Recent Labs 04/18/242109 NA 138 K 3.9 CL 101 CO2 26 BUN 14 CREATININE 1.04 CALCIUM 9.0 LABALBU 4.1 LFT: Recent Labs 04/18/242109 TBIL 0.7 ALKPHOS 60 AST 42 ALT 89* Lactate: Recent Labs 04/18/242109 LACTICACID 1.4 ECG: Normal sinus rhythm rate in the 90s, with ST elevations in leads II, 3, aVF as well as submillimeter ST elevations in leads V2 through V6. UT depressions in leads I, II, and V3-V6. Imaging: No results found. Assessment Praful Perez is a 43 y.o. male with no significant past medical history who initially presented to [facility] for several days of chest pain after GI illness, now transferred to [facility] for pericarditis with pericardial effusion concerning for tamponade physiology. Patient with normal heart rate in the 80s to 90s, normal to slightly elevated blood pressure, normal lactate and creatinine. Fellow performed POCUS on arrival is essentially unchanged from day prior, reviewed with overnight attending and appropriate to monitor tonight. Will continue colchicine and ibuprofen started at [facility], plan to trend CRP and perform limited echo to evaluate effusion in the morning. Plan #Pericarditis with effusion & evidence of early tamponade physiology Effusion ~2.3 cm, evidence of RV diastolic collapse, dilated IVC with minimal respiratory variation, but stable x ~24hrs and pt HDS w/o tachycardia. - Continue colchicine 0.6 mg BID & ibuprofen 800 mg TID - Repeat limited TTE a.m. of 04/19 - N.p.o. at 02:00 pending repeat TTE - Hold DVT chemo PPx pending repeat TTE Diet: DIET REGULAR DIET NPO TIME SPECIFIED Bowel regimen: Senna & polyethylene glycol daily PRN VTE Prophylaxis: hold as above Consults: none CODE STATUS: full Admission Status Inpatient. Anticipated duration of hospitalization is greater than two midnights due to pericarditis with pericardial effusion . Greg Miranda MD Internal Medicine, PGY-2 Epic Chat Preferred, or [phone] 04/18/24 22:18 Associated attestation - Ronit Mejia MD - 04/19/2024 1437 EDT I have evaluated the patient. I agree with the assessment and plan as outlined by Dr. Aditi Miranda. Praful Perez is a 43-year-old gentleman. 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 He is status post pericardiocentesis. We will treat aggressively with prednisone and colchicine. If cytology is positive for malignancy, these therapeutic agents will be discontinued. We will monitor him closely over the next couple days. RONIT MEJIA MD Attending Jack Setter [facility] Note: The Echo System dictation software was used to generate this note. [employer] sometimes generates mistakes; I did my best to identify and correct any mistakes. documented in this encounter Procedure Notes * Dominick Romano MD - 04/19/2024 1154 EDT Cardiovascular Catheterization Laboratory Preliminary Report -- Catheterization Date of Service/Procedure: 04/19/2024 Attending Physician: Dominick Romano MD Fellow: Ayaka Martinez MD Pre-Procedure Diagnosis /NCDR Indication: Praful Perez is a 43 y.o. year old male with pericardial disease and other large pericardial effusion with early tamponade physiology . Heart Failure: No Anesthesia: A moderate level of anesthesia/conscious sedation was used in addition to local anesthesia. Access: Sub-xipihoid access Procedure: He was brought to [facility] Cardiac Catheterization Laboratory for the procedure: Pericardiocentesis . Closure: A 6 Fr. Sheath with an indwelling 6 Fr. Pigtail catheter were sutured in place. Post-Procedure Condition: The condition of the patient was Fair. Complications: None. IV Contrast Total: 0 mL X-ray Dose: 176 mGy Estimated Blood Loss: Minimal. Unless otherwise noted,there were no specimens removed, cultures obtained, or drains retained. Research Study: Patient is not enrolled in a research study. Left Ventriculography and Hemodynamic Results None Endovascular Study Results None Interventional Procedure: Successful pericardiocentesis with removal of 425 cc of serosanguinous pericardial fluid. Multiple attempts were made to perform the procedure. The initial attempt was successful with needle and wire access in the pericardium but the micropuncture sheath was not long enough to reach the pericardial space and we lost wire access. During one of the attempts, there was bloody aspirate from the needle but the wire did not seem to enter the pericardial space raising the possibility of inadvertent hepatic artery puncture. Plan: See post-procedure orders. Transthoracic echocardiography. Remove drain tomorrow if echo shows minimal pericardial effusion if drainage <50 cc in 24 hours.Follow fluid studies. At the completion of the procedure, the attending physician has explained the findings, therapies, any complications and treatment plan to the patient. With the patients consent, all family members and patient support persons who were present at the conclusion of the procedure have been notified ofthese results and treatment plans as well. Post Interventional Conclusion/Physician Disposition: (check one main category) Inpatient procedure, continue inpatient status (no procedural complication required) Dominick Romano MD PagerNumber: registracija vozila 04/19/2024 11:54 documented in this encounter Miscellaneous Notes * Plan of Care - Kayy Chandler RN - 04/20/2024 0344 EDT Problem: Daily Care Plan Goals Goal: Care Plan Documentation Flowsheets (Taken 04/19/20241950) Area of Focus: Pain/ Comfort Goal This Shift: Pt will report decreased pain throughout tonight's shift. Data: Pt is 43 yo male, HD#2 POD#1 s/p pericardiocentesis with placement of epicardial drain. Pt originally admitted for pericarditis with effusion and evidence of early cardiac tamponade. Pt A&Ox3. NSR on tele, continuous pulse ox. Pt c/o poorly controlled pain at start of shift. Action: Assessed patient. Medicated per eMAR. VSS Q4 on RA. Maintained I/Os. Clustered care to helppromote rest. Hourly rounding to ensure patient safety. Response: Pt able to rest intermittently throughout night. Call dickens within reach, pt rings appropriately- able to make needs known. Spouse remains at bedside for additional support. KAYY CHANDLER RN 04/20/2024 3:44 * Plan of Care - Marlon Sebastian RN - 04/18/2024 8104 EDT Data: 43y/o male admitted from [facility] for pericarditis with effusion, early evidence of cardiac tamponade. No PMH other than a recent GI illness. Pt AAOX4, skin WDI, pt does experience fever and chest pain. Both seem controlled with Tylenol and Motrin. Pt has been NPO since 0200 for repeat TTE Action: meds given per MAR, pt pain treated per PRN MAR, pt up adlib. VS monitored, pt treated for fever Response: pt was able to rest during the night on and off. Call light in reach. MARLON SEBASTIAN RN 04/19/2024 6:19 Problem: Safety: Goal: Will remain free from falls Outcome: Ongoing Problem: Pain: Goal: Pain level will decrease Outcome: Ongoing Problem: Cardiac: Goal: Ability to maintain clinical measurements within defined limits will improve Outcome: Ongoing documented in this encounter Plan of Treatment Upcoming Encounters Date Type Department Care Team (Late st Contact Info) Description 07/10/2024 16:00 EDT Office Visit [facility] [place] [place] [address] Juanito Phillips MD [address] [place] [id number] Pending Results Name Type Priority Associated Diagnoses Date /Time PHYSICIAN PERFORMED TTE Echocardiography Routine 04/18/2024 20:5 2 EDT PHYSICIAN PERFORMED TTE Echocardiography Routine 04/19/2024 11:0 1 EDT Scheduled Orders Name Type Priority Associated Diagnoses Orde r Schedule PHYSICIAN PERFORMED TTE Echocardiography Routine One Time for 1 Occurrences starting 04/18/2024 until 04/18/2024 PHYSICIAN PERFORMED TTE Echocardiography Routine One Time for 1 Occurrences starting 04/19/2024 until 04/19/2024 Scheduled Referrals Name Type Priority Associated Diagnoses Order Schedule AMB CONS/FOLLOW UP CARDIOLOGY Outpatient Referral Routine/Next Available Pericardial effusion with cardiac tamponade Pericardial effusion Expected: 05/21/2024 (Approximate), Expires: 04/20/2025 AMB CONS/FOLLOW UP PRIMARY CARE PHYSICIAN - EXTERNAL Outpatient Referral Routine/Next Available Pericardial effusion with cardiac tamponade Pericardial effusion Expected: 04/27/2024 (Approximate), Expires: 04/20/2025 documented as of this encounter Procedures Procedure Name Priority Date/Time Associated Diagnosis Comments ECG REPORT - SCANNED 04/26/2024 9:08 EDT ECG REPORT - SCANNED 04/23/2024 17:54 EDT TRANSTHORACIC ECHO (TTE) LIMITED Routine 04/20/2024 9:56 EDT ECG REPORT - SCANNED 04/20/2024 9:03 EDT COMPLETE BLOOD COUNT Routine 04/20/2024 5:53 EDT C REACTIVE PROTEIN Routine 04/20/2024 5: 53 EDT COMPREHENSIVE METABOLIC PANEL (CMP) Routine 04/20/2024 5:53 EDT NON CHEMICAL ENGRAVER/FNA CYTOLOGY Routine 04/19/2024 12:07 EDT Pericardial effusion FLUID CELL COUNT Routine 04/19/2024 12:0 7 EDT AFB CULTURE/SMEAR, OTHER Routine 04/19/2024 12:07 EDT HOLD FLUID Routine 04/19/2024 12:07 EDT ANAEROBE CULTURE/SMEAR(INC. AEROBES), OTHER Routine 04/19/2024 12:07 EDT FUNGUS CULTURE/SMEAR Routine 04/19/2024 12:07 EDT FLUID DIFFERENTIAL Today 04/19/2024 12 :07 EDT CARDIAC CATHETERIZATION Routine 04/19/20 24 12:04 EDT Pericardial effusion with cardiac tamponade TRANSTHORACIC ECHO (TTE) COMPLETE Routine 04/19/2024 9:09 EDT SARS COV2, FLU A/B, RSV DETECT BY PCR Routine 04/19/2024 8:45 EDT EXPANDED RESPIRATORY VIRAL PANEL, PCR (DOES NOT INCLUDE INFLUENZA OR RSV) Routine 04/19/2024 8:45 EDT DOUBLE STRANDED DNA ANTIBODY, IGG Routine 04/19/2024 8:19 EDT COMPLETE BLOOD COUNT Routine 04/19/2024 8:19 EDT HIV 1/2 ANTIGEN AND ANTIBODY, 4TH GENERATION Routine 04/19/2024 8:19 EDT ANTI NUCLEAR AB (EMIR), IFA Routine 04/19/2024 8:19 EDT COMPREHENSIVE METABOLIC PANEL (CMP) Routine 04/19/2024 8:19 EDT XR CHEST PORTABLE 1 VIEW STAT 04/18/2024 22:05 EDT EKG 12-LEAD STAT 04/18/2024 21:10 EDT LACTIC ACID STAT 04/18/2024 21:10 EDT COMPLETE BLOOD COUNT AND DIFFERENTIAL STAT 04/18/2024 21:10 EDT C REACTIVE PROTEIN STAT 04/18/2024 21 :10 EDT NT PRO BNP STAT 04/18/2024 21:10 EDT COMPREHENSIVE METABOLIC PANEL (CMP) STAT 04/18/2024 21:10 EDT documented in this encounter Results * ECG REPORT - SCANNED (04/26/2024 9:08 EDT) 04/26/2024 9:08 EDT Scan 2 Platform Power Technician PROCEDURE/MINOR CARMENZA GICAL ORDERABLES * ECG REPORT - SCANNED (04/23/2024 17:54 EDT) 04/23/2024 17:5 4 EDT Scan 2 Platform Power Technician PROCEDURE/MINOR CARMENZA GICAL ORDERABLES * TRANSTHORACIC ECHO [...] color Doppler.The study was interpreted by [facility]. Pertinent images and digital data are archived for permanent storage and are available for subsequent review. Scanning was performed from the apical and parasternal acoustic windows. Overall the study quality was adequate. Images were obtained using cardiac ultrasound machine EPIQ #21. Shanae Osei MD CARDIAC ECHO ORDERA BLES * ECG REPORT - SCANNED (04/20/2024 9:03 EDT) 04/20/2024 9:03 EDT Scan 2 Platform Power Technician PROCEDURE/MINOR CARMENZA GICAL ORDERABLES * (ABNORMAL) COMPLETE BLOOD COUNT (04/20/2024 5:53 EDT) WBC 10.07 4.00 - 10.40 K/cmm 04/20/2024 6:28 [facility] RBC 4.63 4.36 - 5.78 M/cmm 04/20/2024 6:28 [facility] Hemoglobin 13.6(L) 13.8 - 17.3 g/dL 04/20/2024 6:28 [facility] HCT 39.9 39.5 - 50.2 % 04/20/2024 6:28 [facility] MCV 86 81 - 95 fL 04/20/2024 6:28 [facility] MCH 29.4 27.6 - 33.0 pg 04/20/2024 6:28 [facility] MCHC 34.1 32.8 - 36.4 g/dL 04/20/2024 6:28 [facility] RDW-CV 12.5 <14.2 % 04/20/2024 6:28 [facility] RDW-SD 39.4 <46.0 fl 04/20/2024 6:28 EDT [facility] PLT 337 141 - 377 K/cmm 04/20/2024 6:28 [facility] MPV 10.2 9.5 - 12.7 fL 04/20/2024 6:28 [facility] Blood VENOUS BLOOD / Unknown Venipuncture / Unknown 04/20/2024 5:53 EDT 04/20/2024 6:22 EDT Greg Miranda MD HEMATOLOGY & PF 4 ORDERABLES [facility] [address] [place] [address] * (ABNORMAL) COMPREHENSIVE METABOLIC PANEL (CMP) (04/20/2024 5:53 EDT) Sodium 139 136 - 145 mmol/L 04/20/2024 6:58 [facility] Potassium 3.9 3.5 - 5.0 mmol/L 04/20/2024 6:58 [facility] Chloride 105 96 - 110 mmol/L 04/20/2024 6:58 [facility] CO2 Total 20(L) 22 - 32 mmol/L 04/20/2024 6:58 [facility] Glucose 125(H) 70 - 99 mg/dl 04/20/2024 6:58 [facility] BUN 23 10 - 26 mg/dL 04/20/2024 6:58 [facility] Creatinine 0.91 0.66 - 1.25 mg/dL 04/20/2024 6:58 [facility] eGFR 107 >60 mL/min/1.7 3m2 04/20/2024 6:58 [facility] Total Protein 6.0(L) 6.3 - 8.2 g/dL 04/20/2024 6:58 [facility] Albumin 3.4 3.4 - 4.9 g/dL 04/20/2024 6:58 EDT [facility] Alkaline Phosphatase 62 38 - 126 U/L 04/20/2024 6:58 EDT [facility] AST 22 15 - 46 U/L 04/20/2024 6:58 EDT [facility] ALT 54(H) <50 U/L 04/20/2024 6:58 EDT [facility] Bilirubin, Total 0.6 <1.4 mg/dL 04/20/20 6:58 EDT [facility] Calcium 8.7 8.5 - 10.5 mg/dL 04/20/2024 6:58 T [facility] Albumin/Globulin Ratio 1.3 1.0 - 2.5 04/20/2024 6:58 EDT [facility] Anion Gap 14 5 - 14 mmol/L 04/20/2024 6:58 EDT [facility] Blood VENOUS BLOOD / Unknown Venipuncture / Unknown 04/20/2024 5:53 EDT 04/20/2024 6:26 EDT Greg Miranda MD CHEMISTRY & BLO OD GAS ORDERABLES Performing Organization Address City/[facility]/ZIP Co de Phone Number [facility] [address] [place] [address] * (ABNORMAL) C REACTIVE PROTEIN (04/20/2024 5:53 EDT) C-Reactive Protein 237.5(H) <10.0 mg/L 04/20/2024 7:16 EDT [facility] Blood VENOUS BLOOD / Unknown Venipuncture / Unknown 04/20/2024 5:53 EDT 04/20/2024 6:26 EDT Shanae Osei MD CHEMISTRY & BLOOD G ORDERABLES [facility] [address] [place] [address] * FLUID DIFFERENTIAL (04/19/2024 12:07 EDT) Neutrophils Fluid Relative 69 % 04/19/2024 15:20 EDT [facility] Lymphocytes Fluid Relative 19 % 04/19/2024 15:20 EDT [facility] Fillmore/Macrophage 12 % 15:20 EDT [facility] Fluid PERICARDIAL FLUID / Unknown 04/19/2024 12:07 EDT 04/19/2024 12:36 EDT Shanae Osei MD GEN LAB UNIT COLLE T ORDERABLES Performing Organization Address City/[facility]/ZIP Co de Phone Number [facility] [address] [place] [address] * HOLD FLUID (04/19/2024 12:07 EDT) Hold Hold 04/19/2024 13:46 EDT [facility] Fluid PERICARDIAL FLUID / Unknown 04/19/2024 12:07 EDT 04/19/2024 12:36 EDT Shanae Osei MD LAB INFO SERVICE AN D SUPPORT & PHONE RESULT Performing Organization Address [facility]/ZIP Co de Phone Number [facility] [address] [place] [address] * FUNGUS CULTURE/SMEAR (04/19/2024 12:07 EDT) Organism ID No fungi isolated 05/17/2024 8:31 EDT [facility] Fungal Smear No Fungi Seen 05/17/2024 8:31 EDT [facility] Fluid PERICARDIAL FLUID / Unknown 04/19/2024 12:07 EDT 04/19/2024 12:36 EDT Shanae Osie MD MICROBIOLOGY - GENE RAL ORDERABLES Performing Organization Address [facility]/ZIP Co de Phone Number [facility] [address] [place] [address] * (ABNORMAL) ANAEROBE CULTURE/SMEAR(INC. AEROBES), OTHER (04/19/2024 12:07 EDT) Organism ID No Growth 04/24/2024 11:46 EDT [facility] Smear Neutrophils Present(A) 04/24/2024 11:46 EDT [facility] Smear No bacteria seen(A) 04/24/2024 11:46 EDT [facility] Fluid PERICARDIAL FLUID / Unknown 04/19/2024 12:07 EDT 04/19/2024 12:36 EDT Shanae Osei MD MICROBIOLOGY - GENE [employer]Up ORDERABLES Performing Organization Address City/[facility]/ZIP Co de Phone Number [facility] [address] [place] [id number] * AFB CULTURE/SMEAR, OTHER (04/19/2024 12:07 EDT) Organism ID No acid-fast bacilli isolated VITEK SUSCEPTIBILITY 06/15/2024 10:39 EDT [facility] AFB Smear No Acid Fast Bacilli Seen 06/15/2024 10:39 EDT [facility] Fluid PERICARDIAL FLUID / Unknown 04/19/2024 12:07 EDT 04/19/2024 12:36 EDT Shanae Osei MD MICROBIOLOGY - GENE RAL ORDERABLES [facility] [address] [place] [id number] * NON CHEMICAL ENGRAVER/FNA CYTOLOGY (04/19/2024 12:07 EDT) Note to Patient The following pathology results have been interpreted by your pathologist and may be available to you before your health provider has had the opportunity to review them. Please allow time for your provider to receive these results and explore management options, if applicable. 04/20/2024 14:29 EDT [facility] Final Diagnosis A. PERICARDIAL FLUID, CYTOLOGIC EVALUATION: - Negative for malignant cells. - Background contains abundant red blood cells and mixed inflammatory cells. 04/20/2024 14:29 EDT [facility] Attestation By the signature below, the attending physician certifies that they have personally conducted a gross and/or microscopic examination of the described specimens and rendered or confirmed the above diagnosis. 04/20/2024 14:29 EDT [facility] at 1429 Clinical History early tamponade, pericardial effusion 04/20/2024 14:29 EDT [facility] Gross Description A. 400 cc's of dark red fluid were received and processed by selective cellular enhancement technique. 04/20/2024 14:29 EDT [facility] Performing Lab [facility] 04/20/2024 14:29 T [facility] Scanned Images 04/20/2024 14:29 [facility] Fluid PERICARDIAL FLUID / Unknown 04/19/2024 12:07 EDT 04/19/2024 13:31 EDT Shanae Osei MD PATHOLOGY ORDERABLE S [facility] [address] [place] [id number] * FLUID CELL COUNT (04/19/2024 12:07 EDT) RBC, Fluid 472,500 /cmm 04/19/2024 15:18 EDT [facility] Nucleated Cells, fluid 7,925 /cmm 04/19/2024 15:18 T [facility] Comment, fluid Moderately bloody Moderately cloudy 04/19/2024 15:18 T [facility] Fluid PERICARDIAL FLUID / Unknown 04/19/2024 12:07 EDT 04/19/2024 12:36 EDT Shanae Osei MD HEMATOLOGY & PF4 OR DERABLES [facility] [address] [place] [address] * PERICARDIAL TAP (04/19/2024 12:04 EDT) Anatomical Region Laterality Modality Messaging Architect 04/19/2024 11:0 6 EDT Narrative 04/24/2024 9:43 EDT Cardiology [address] [place] [address] Pericardiocentesis Patient: Praful Perez Study Date: ??04/19/2024 [...] Note Dominick Romano MD - 04/24/[address] [place] [address] Pericardiocentesis Patient: Praful Perez Study Date: 04/19/2024 : 1980 Referring: Deven Multani Diagnostic Attending: Dominick Romano Interventional Attending: Dominick Romano ATTESTATION: Dr. Ayaka Quarles was the initial author of this report. Dr. Dominick Romano was present and supervising for the entire procedure. Willam, Dr. Dominick Romano have reviewed and agreed [...] by Dominick Romano MD 2024-04-24 09:42 Deven Yo Greg CARDIAC CATH AIDEE LOVE * TRANSTHORACIC ECHO (TTE) COMPLETE W/DOPPLER W/CF NO CONTRAST (04/19/2024 9:09 EDT) Pathologist [facility] Mitral deceleration time 243 ms [facility] POIN [...] color Doppler.The study was interpreted by [facility]. Pertinent images and [...] at 09:54 EDT. Deven Garza CARDIAC ECHO REGIE IVAN * SARS COV2, FLU A/B, RSV DETECT BY PCR (04/19/2024 8:45 EDT) FLU A RNA Result (FLARES) Negative Negative 04/19/2024 10:00 EDT [facility] FLU B RNA Result (FLBRES) Negative Negative 04/19/2024 10:00 EDT [facility] RSV RNA Result (RSVRES) Negative Negative 04/19/2024 10:00 EDT [facility] COVID-19 rt-PCR Result Negative Negative 04/19/2024 10:00 EDT [facility] Comment: Negative results do not preclude 2019-nCoV infection and should not be used as the sole basis for treatment or other patient management decisions. Negative results must be combined with clinical observations, patient history, and epidemiological information. Performed on the [employer] GeneXpert Instrument Swab NASOPHARYNGEAL STRUCTURE / Unknown Swab / Unknown 04/19/2024 8:45 EDT 04/19/2024 9:04 EDT Shanae Osei MD MICROBIOLOGY - GENE [facility] ORDERABLES Performing Organization Address [facility] Co de Phone Number [facility] [address] [place] [address] * EXPANDED RESPIRATORY VIRAL PANEL, PCR (DOES NOT INCLUDE INFLUENZA OR RSV) (04/19/2024 8:45 EDT) Pathologist [facility] Paraflu Type 1 Rslt (PF1RES) Negative Negative 04/19/2024 14:07 EDT [facility] Paraflu Type 2 Rslt (PF2RES) Negative Negative 04/19/2024 14:07 EDT [facility] Paraflu Type 3 Rslt (PF3RES) Negative Negative 04/19/2024 14:07 EDT [facility] Paraflu Type 4 Rslt Negative Negative 04/19 14:07 EDT [facility] Rhinovirus RNA Rslt (RVRES) Negative Negative 04/19/2024 14:07 EDT [facility] Metapneumovirus RNA Rslt (HMVRES) Negative Negative 04/19/2024 14:07 EDT [facility] Adenovirus DNA Rslt (ADVRES) Negative Negative 04/19/2024 14:07 EDT [facility] Swab NASOPHARYNGEAL STRUCTURE / Unknown Swab / Unknown 04/19/2024 8:45 EDT 04/19/2024 9:04 EDT Shanae Osei MD MICROBIOLOGY - GENE [facility] ORDERABLES Performing Organization Address [facility]/ZIP Co de Phone Number [facility] [facility] [address] [place] [id number] * DOUBLE STRANDED DNA ANTIBODY, IGG (04/19/2024 8:19 EDT) Pathologist [facility] dsDNA Ab, IgG <22.0 <27.0 IU/mL 2024 11:50 EDT [facility] Comment: Negative: <27.0 IU/mL Indeterminate: 27.0 - 35.0 IU/mL Positive: >35.0 IU/mL Results were obtained with Knock Knock QUANTA Flash dsDNA chemiluminescent immunoassay. Values obtained with different manufacturers' assay methods may not be used interchangeably. Blood VENOUS BLOOD / Unknown Venipuncture / Unknown 04/19/2024 8:19 EDT 04/19/2024 8:35 EDT Shanae Osei MD IMMUNOLOGY AND SERO LOGY ORDERABLES Performing Organization Address [facility] de Phone Number [facility] [address] [place] [address] * HIV 1/2 ANTIGEN AND ANTIBODY, 4TH GENERATION (04/19/2024 8:19 EDT) Pathologist [facility] HIV 1 and 2 Antibody/p24 Antigen, 4th Generation Negative Negative 04/19/2024 11:28 EDT [facility] Comment:If acute HIV-1 infec tion is suspected in a high risk patient, submit plasma specimen for HIV-1 RNA quantitation test. Blood VENOUS BLOOD / Unknown Venipuncture / Unknown 04/19/2024 8:19 EDT 04/19/2024 8:35 EDT Narrative [facility] - 04/19/2024 11:28 EDT Fourth Generation assay performed on the Celnyxaur XPT. Shanae Osei MD IMMUNOLOGY AND SERO LOGY ORDERABLES Performing Organization Address [facility] de Phone Number [facility] [address] [place] [address] * ANTI NUCLEAR AB (EMIR), IFA (04/19/2024 8:19 EDT) EMIR Interpretation Negative Negative 2023 13:44 EDT [facility] Comment:No titer performed, EMIR Screen is negative. Blood VENOUS BLOOD / Unknown Venipuncture / Unknown 04/19/2024 8:19 EDT 04/19/2024 8:35 EDT Narrative [facility] - 04/20/2024 13:44 EDT Results were obtained with the Knock Knock NOVA Lite HEp-2 EMIR Kit by indirect immunofluorescence. Shanae Osei MD IMMUNOLOGY AND SERO LOGY ORDERABLES [facility] [address] [place] [address] * (ABNORMAL) COMPLETE BLOOD COUNT (04/19/2024 8:19 EDT) WBC 10.34 4.00 - 10.40 K/cmm 04/19/2024 8:45 T [facility] RBC 4.38 4.36 - 5.78 M/cmm 04/19/2024 8:45 [facility] Hemoglobin 12.9(L) 13.8 - 17.3 g/dL 04/19/2024 8:45 [facility] HCT 36.8(L) 39.5 - 50.2 % 04/19/2024 8:45 [facility] MCV 84 81 - 95 fL 04/19/2024 8:45 [facility] MCH 29.5 27.6 - 33.0 pg 04/19/2024 8:45 [facility] MCHC 35.1 32.8 - 36.4 g/dL 04/19/2024 8:45 [facility] RDW-CV 13.0 <14.2 % 04/19/2024 8:45 [facility] RDW-SD 39.8 <46.0 fl 04/19/2024 8:45 [facility] PLT 276 141 - 377 K/cmm 04/19/2024 8:45 [facility] MPV 10.2 9.5 - 12.7 fL 04/19/2024 8:45 [facility] Blood VENOUS BLOOD / Unknown Venipuncture / Unknown 04/19/2024 8:19 EDT 04/19/2024 8:27 EDT Greg Miranda MD HEMATOLOGY & PF 4 ORDERABLES [facility] [address] [place] [address] * (ABNORMAL) COMPREHENSIVE METABOLIC PANEL (CMP) (04/19/2024 8:19 EDT) Sodium 138 136 - 145 mmol/L 04/19/2024 9:06 [facility] Potassium 4.0 3.5 - 5.0 mmol/L 04/19/2024 9:06 [facility] Chloride 103 96 - 110 mmol/L 04/19/2024 9:06 [facility] CO2 Total 21(L) 22 - 32 mmol/L 04/19/2024 9:06 [facility] Glucose 121(H) 70 - 99 mg/dl 04/19/2024 9:06 [facility] BUN 14 10 - 26 mg/dL 04/19/2024 9:06 [facility] Creatinine 0.89 0.66 - 1.25 mg/dL 04/19/2024 9:06 [facility] eGFR 109 >60 mL/min/1.7 3m2 04/19/2024 9:06 [facility] Total Protein 6.0(L) 6.3 - 8.2 g/dL 04/19/2024 9:06 [facility] Albumin 3.5 3.4 - 4.9 g/dL 04/19/2024 9:06 [facility] Alkaline Phosphatase 59 38 - 126 U/L 04/19/2024 9:06 [facility] AST 33 15 - 46 U/L 04/19/2024 9:06 [facility] ALT 74(H) <50 U/L 04/19/2024 9:06 [facility] Bilirubin, Total 0.7 <1.4 mg/dL 04/19/20 9:06 [facility] Calcium 8.7 8.5 - 10.5 mg/dL 04/19/2024 9:06 EDT [facility] Albumin/Globulin Ratio 1.4 1.0 - 2.5 04/19/2024 9:06 EDT [facility] Anion Gap 14 5 - 14 mmol/L 04/19/2024 9:06 EDT [facility] Blood VENOUS BLOOD / Unknown Venipuncture / Unknown 04/19/2024 8:19 EDT 04/19/2024 8:35 EDT Greg Miranda MD CHEMISTRY & BLO OD GAS ORDERABLES [facility] [address] [place] [address] * XR CHEST PORTABLE 1 VIEW (04/18/2024 22:05 EDT) Anatomical Region Laterality Modality Computed Radiogr aphy 04/19/2024 8:08 EDT Impressions 04/19/2024 8:08 EDT Enlarged cardiomediastinal silhouette, otherwise no acute abnormality identified. I have personally reviewed the images and the above interpretation and agree with the findings. [id number] Narrative 04/19/2024 8:08 EDT XR CHEST PORTABLE 1 VIEW ??04/18/2024 10:05 PM Clinical History/comments: cardiac tamponade; Comparison: None. Technique: Single portable AP view of the chest. Findings: Lines/tubes/devices: None. Lungs: Thin bibasilar linear atelectasis. No consolidation. Pleura: No visible abnormality. Cardiac and mediastinal contours: Enlarged cardiomediastinal silhouette. Soft tissues and extrathoracic findings: No significant finding. Bones: No discrete abnormality. Resulting Agency Comment [id number] Procedure Note Elier Cardoza MD - 04/19/2024 [...] the above interpretation andagree with the findings. [id number] Greg Miranda MD IMG DIAGNOSTIC IMAGING ORDERABLES * EKG 12-LEAD (04/18/2024 21:10 EDT) 04/18/2024 21:1 0 EDT Narrative [facility] E[facility] - 04/20/2024 8:57 EDT ? [facility] ? Test Date: ?2024-04-18 Pat Name: ? PRAFUL PEREZ ?Department: ?? [facility] [address] ? Room: ? [id number] Gender: ? Male ? 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 Requested By: ADITI CARREON Order Number: [id number] ? Lidia WILKES: ?? MIREYA ZUNIGA MD ? Measurements Intervals ?[place] ? Rate: ? 93 ? 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 No previous ECG available for comparison I reviewed the tracing and have either agreed or edited the findings inthis report. Electronically Signed On 04-20-2024 08:57:39 EDT by MIREYA SHERMAN. Greg Miranda MD CARDIAC ECG ORD ERABLES [facility] EKG * (ABNORMAL) NT PRO BNP (04/18/2024 21:10 EDT) NT-pro BNP 162(H) <125 pg/mL 04/18/2024 22:29 EDT [facility] Comment: In the acute setting NT-proBNP values <300 pg/mL have a 98% NPV for excluding acute heart failure. In outpatient populations, NT-proBNP values <125 have a 99% NPV for excluding heart failure. Blood VENOUS BLOOD / Unknown Venipuncture / Unknown 04/18/2024 21:10 EDT 04/18/2024 21:15 EDT Greg Miranda MD CHEMISTRY & BLO OD GAS ORDERABLES [facility] [address] [place] [address] * (ABNORMAL) COMPLETE BLOOD COUNT AND DIFFERENTIAL (04/18/2024 21:10 EDT) WBC 12.48(H) 4.00 - 10.40 K/cmm 04/18/2024 21:30 EDT [facility] RBC 4.79 4.36 - 5.78 M/cmm 04/18/2024 21:30 EDT [facility] Hemoglobin 14.1 13.8 - 17.3 g/dL 04/18/2024 21:30 EDT [facility] HCT 41.2 39.5 - 50.2 % 04/18/2024 21:30 EDT [facility] MCV 86 81 - 95 fL 04/18/2024 21:30 EDT [facility] MCH 29.4 27.6 - 33.0 pg 04/18/2024 21:30 [facility] MCHC 34.2 32.8 - 36.4 g/dL 04/18/2024 21:30 [facility] RDW-CV 13.1 <14.2 % 04/18/2024 21:30 [facility] RDW-SD 40.7 <46.0 fl 04/18/2024 21:30 [facility] PLT 320 141 - 377 K/cmm 04/18/2024 21:30 [facility] MPV 10.1 9.5 - 12.7 fL 04/18/2024 21:30 [facility] % Neutrophils 71.1 % 04/18/2024 21:30 [facility] % Lymphocytes 15.6 % 04/18/2024 21:30 [facility] % Monocytes 12.2 % 04/18/2024 21:30 [facility] % Eosinophils 0.4 % 04/18/2024 21:30 [facility] % Basophils 0.2 % 04/18/2024 21:30 [facility] % Immature Grans 0.5 % 04/18/20 21:30 [facility] Absolute Neutrophils 8.87(H) 2.20 - 8.85 K/cmm 04/18/2024 21:30 [facility] Absolute Lymphocytes 1.95 1.09 - 3.30 K/cmm 04/18/2024 21:30 [facility] Absolute Monocytes 1.52(H) 0.10 - 0.80 K/cmm 04/18/2024 21:30 [facility] Absolute Eosinophils 0.05 0.03 - 0.61 K/cmm 04/18/2024 21:30 [facility] ABS Basophils 0.03 0.01 - 0.11 K/cmm 04/18/2024 21:30 [facility] Absolute Immature Grans 0.06 0.00 - 0.06 K/cmm 04/18/2024 21:30 [facility] Type of Differential: Auto 04/18/2024 21:30 [facility] Blood VENOUS BLOOD / Unknown Venipuncture / Unknown 04/18/2024 21:10 EDT 04/18/2024 21:17 EDT Greg Miranda MD PACKAGES & DNA PROBE ORDERABLES [facility] [address] [place] [address] * (ABNORMAL) COMPREHENSIVE METABOLIC PANEL (CMP) (04/18/2024 21:10 EDT) Sodium 138 136 - 145 mmol/L 04/18/2024 21:35 [facility] Potassium 3.9 3.5 - 5.0 mmol/L 04/18/2024 21:35 [facility] Chloride 101 96 - 110 mmol/L 04/18/2024 21:35 [facility] CO2 Total 26 22 - 32 mmol/L 04/18/2024 21:35 [facility] Glucose 121(H) 70 - 99 mg/dl 04/18/2024 21:35 [facility] BUN 14 10 - 26 mg/dL 04/18/2024 21:35 [facility] Creatinine 1.04 0.66 - 1.25 mg/dL 04/18/2024 21:35 [facility] eGFR 91 >60 mL/min/1.7 3m2 04/18/2024 21:35 [facility] Total Protein 7.1 6.3 - 8.2 g/dL 04/18/2024 21:35 [facility] Albumin 4.1 3.4 - 4.9 g/dL 04/18/2024 21:35 [facility] Alkaline Phosphatase 60 38 - 126 U/L 04/18/2024 21:35 [facility] AST 42 15 - 46 U/L 04/18/2024 21:35 [facility] ALT 89(H) <50 U/L 04/18/2024 21:35 EDT [facility] Bilirubin, Total 0.7 <1.4 mg/dL 04/18/20 21:35 EDT [facility] Calcium 9.0 8.5 - 10.5 mg/dL 04/18/2024 21:35 EDT [facility] Albumin/Globulin Ratio 1.4 1.0 - 2.5 04/18/2024 21:35 EDT [facility] Anion Gap 11 5 - 14 mmol/L 04/18/2024 21:35 EDT [facility] Blood VENOUS BLOOD / Unknown Venipuncture / Unknown 04/18/2024 21:10 EDT 04/18/2024 21:15 EDT Greg Miranda MD CHEMISTRY & BLO OD GAS ORDERABLES Performing Organization Address [facility] Co de Phone Number [facility] [address], [place] [id number] * (ABNORMAL) C REACTIVE PROTEIN (04/18/2024 21:10 EDT) C-Reactive Protein 309.3(H) <10.0 mg/L 04/18/2024 22:27 EDT [facility] Blood VENOUS BLOOD / Unknown Venipuncture / Unknown 04/18/2024 21:10 EDT 04/18/2024 21:15 EDT Greg Miranda MD CHEMISTRY & BLO OD GAS ORDERABLES [facility] [address] [place] [address] * LACTIC ACID (04/18/2024 21:10 EDT) Lactic Acid 1.4 <=2.0 mmol/L 04/18/2024 21:35 EDT [facility] Blood VENOUS BLOOD / Unknown Venipuncture / Unknown 04/18/2024 21:10 EDT 04/18/2024 21:15 EDT Greg Miranda MD CHEMISTRY & BLO OD GAS ORDERABLES [facility] [address] [place] [address] documented in this encounter Visit Diagnoses Diagnosis Pericardial effusion with cardiac tamponade- Primary Pericardial effusion with cardiac tamponade Pericardial effusion Unspecified disease of pericardium 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 Pericardial tamponade Cardiac tamponade 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 Pericardial tamponade Cardiac tamponade Pericardial effusion with cardiac tamponade documented in this encounter Admitting Diagnoses Diagnosis Pericardial effusion with cardiac tamponade documented in this encounter Administered Medications Inactive Administered Medications - up to 3 most recent administrations Medication Order MAR Action Action Date Dose Rate Site acetaminophen (TYLENOL) tablet 1,000 mg 1,000 mg, oral, EVERY 6 HOURS PRN, Starting on Tue04/19/24 at 0032, Until Tue04/19/24 at 2044, Pain, Fever, Routine Given 04/19/2024 13:29 EDT 1,000 mg Given 04/19/2024 6:27 EDT 1,000 mg Given 04/19/2024 0:37 EDT 1,000 mg acetaminophen (TYLENOL) tablet 1,000 mg 1,000 mg, oral, EVERY 6 HOURS, First dose (after last modification) on Tue04/20/24 at 0000, Until Discontinued, Routine Given 04/20/2024 6:07 EDT 1,000 mg Given 04/20/2024 0:12 EDT 1,000 mg colchicine (COLCRYS) tablet 0.6 mg 0.6 mg, oral, 2 TIMES DAILY, First dose on Tue04/18/24 at 2200, Until Discontinued, Routine Given 04/20/2024 8:49 EDT 0. 6 mg Given 04/19/2024 21:17 EDT 0.6 mg Given 04/19/2024 8:38 EDT 0.6 mg diphenhydrAMINE (BENADRYL) capsule 25 mg 25 mg, oral, EVERY 4 HOURS PRN, Starting on Tue04/19/24 at 1553, Until Tue04/20/24 at 1900, Itching, For itching or rash, Routine fentaNYL citrate (PF) injection 25 mcg 25 mcg, intravenous, NOW X1, 1 dose, On Tue04/19/24 at 1430, STAT Given 04/19/2024 14:27 EDT 25 mcg HYDROmorphone (DILAUDID) tablet 1 mg 1 mg, oral, NOW X1, 1 dose, On Tue04/19/24 at 1645, Routine Given 04/19/2024 16:46 EDT 1 mg HYDROmorphone (DILAUDID) tablet 2 mg 2 mg, oral, NOW X1, 1 dose, On Tue04/19/24 at 1945, Routine Given 04/19/2024 19:51 EDT 2 mg HYDROmorphone (PF) (DILAUDID) 0.5 mg/0.5 mL syringe 0.5 mg 0.5 mg, intravenous, NOW X1, 1 dose, On Tue04/19/24 at 2100, Routine Given 04/19/2024 21:17 EDT 0.5 mg ibuprofen (MOTRIN) tablet 800 mg 800 mg, oral, 3 TIMES DAILY, First dose on Tue04/18/24 at 2200, Until Discontinued, Routine Given 04/18/2024 22:19 EDT 8 00 mg ketOROLAC (TORADOL) injection 15 mg 15 mg, intravenous, NOW X1, 1 dose, On Tue04/19/24 at 1745, Routine Given 04/19/2024 17:41 EDT 15 mg ketOROLAC (TORADOL) injection 30 mg 30 mg, intravenous, NOW X1, 1 dose, On Tue04/19/24 at 2100, Routine Given 04/19/2024 21:17 EDT 30 mg predniSONE (DELTASONE) tablet 50 mg 50 mg, oral, DAILY, First dose on Tue04/19/24 at 0900, Until Discontinued, Routine Given 04/20/2024 8:49 EDT 50 mg Given 04/19/2024 8:38 EDT 50 mg ramelteon (ROZEREM) tablet 8 mg 8 mg, oral, AT BEDTIME, First dose on Tue04/19/24 at 2100, Until Discontinued, Routine Given 04/19/2024 21:17 EDT 8 mg documented in this encounter Discontinued Medications Medication Sig Discontinue Reason Start Date End Da te atovaquone (MEPRON) 750 mg/5 mL suspension Take 10 mL by mouth every 24 hours. 04/20/2024 04/20/2024 colchicine (COLCRYS) 0.6 mg tablet Take 1 Tablet by mouth 2 times daily for 90 days. 04/20/2024 04/20/2024 documented as of this encounter Active and Recently Administered Medications Times are shown in EDT. Scheduled Medication Order 04/18/2024 04/19/2024 04/20/2024 acetaminophen (TYLENOL) tablet 1,000 mg 1,000 mg, oral, EVERY 6 HOURS, First dose (after last modification) on Tue04/20/24 at 0000, Until Discontinued, Routine 0012 (Given - Provid er: Kayy Chandler RN)0607 (Given - Provider: Kayy Chandler RN)1550 (Not Given - Provider: Stan Barbour, RN - Reason: Patient/family refused)1800 (Canceled Entry - Provider: Batch Job User Admin - Comment: Automatically canceled at discontinue of medication order) colchicine (COLCRYS) tablet 0.6 mg 0.6 mg, oral, 2 TIMES DAILY, First dose on Tue04/18/24 at 2200, Until Discontinued, Routine 2211 (Given - Provider: Marlon Sebastian RN) 0838 (Given - Provider: Beverly Murphy RN)1032 (DEC Hold - Provider: Automatic Transfer Provider Hn - Reason: Patient off unit)1256 (MAR Unhold - Provider: Automatic Transfer Provider Hn)2117 (Given - Provider: Kayy Chandler RN) 0849 (Given - Provider: Stan Barbour, RN) fentaNYL citrate (PF) injection 25 mcg (COMPLETED) 25 mcg, intravenous, NOW X1, 1 dose, On Gita 04/19/24 at 1430, STAT 1427 (Given - Provider: Beverly Murphy, RN) HYDROmorphone (DILAUDID) tablet 1 mg (COMPLETED) 1 mg, oral, NOW X1, 1 dose, On Gita 04/19/24 at 1645, Routine 1646 (Given - Provider: Beverly Murphy, RN) HYDROmorphone (DILAUDID) tablet 2 mg (COMPLETED) 2 mg, oral, NOW X1, 1 dose, On Gita 04/19/24 at 1945, Routine 1951 (Given - Provider: Kayy Chandler RN) HYDROmorphone (PF) (DILAUDID) 0.5 mg/0.5 mL syringe 0.5 mg (COMPLETED) 0.5 mg, intravenous, NOW X1, 1 dose, On Tue04/19/24 at 2100, Routine 2116 (Given - Provider: Kayy Chandler, ARIEL) ibuprofen (MOTRIN) tablet 800 mg (CANCELED) 800 mg, oral, 3 TIMES DAILY, First dose on Tue04/18/24 at 2200, Until Discontinued, Routine 2218 (Given - Provider: Lakshmi Adorno, ARIEL) ketOROLAC (TORADOL) injection 15 mg (COMPLETED) 15 mg, intravenous, NOW X1, 1 dose, On Tue04/19/24 at 1745, Routine 1740 (Given - Provider: Beverly Murphy RN) ketOROLAC (TORADOL) injection 30 mg (COMPLETED) 30 mg, intravenous, NOW X1, 1 dose, On Tue04/19/24 at 2100, Routine 2116 (Given - Provider: Kayy Chandler RN) predniSONE (DELTASONE) tablet 50 mg 50 mg, oral, DAILY, First dose on Tue04/19/24 at 0900, Until Discontinued, Routine 0838 (Given - Provider: Beverly Murphy RN)1032 (DEC Hold - Provider: Automatic Transfer Provider Hn - Reason: Patient off unit)1256 (DEC Unhold - Provider: Automatic Transfer Provider Hn) 0849 (Given - Provider: Stan Barbour RN) ramelteon (ROZEREM) tablet 8 mg 8 mg, oral, AT BEDTIME, First dose on Tue04/19/24 at 2100, Until Discontinued, Routine 2116 (Given - Provider: Kayy Chandler RN) PRN Medication Order 04/18/2024 04/19/2024 04/20/2024 acetaminophen (TYLENOL) tablet 1,000 mg (CANCELED) 1,000 mg, oral, EVERY 6 HOURS PRN, Starting on Tue04/19/24 at 0032, Until Tue04/19/24 at 2044, Pain, Fever, Routine 0037 (Given - Provider: Marlon Sebastian, ARIEL)0627 (Given - Provider: Marlon Sebastian RN)1032 (DEC Hold - Provider: Automatic Transfer Provider Hn - Reason: Patient off unit)1256 (DEC Unhold - Provider: Automatic Transfer Provider Hn)1329 (Given - Provider: Beverly Murphy RN) diphenhydrAMINE (BENADRYL) capsule 25 mg 25 mg, oral, EVERY 4 HOURS PRN, Starting on Gita 04/19/24 at 1553, Until Tue04/20/24 at 1900, Itching, For itching or rash, Routine fentaNYL citrate (PF) injection (CANCELED) PRN, Starting on Gita 04/19/24 at 1056, Until Gita 04/19/24 at 1204, Routine, Intraprocedure 1056 (Given - Provider: Rylee Sanches, RN)1110 (Given - Provider: Rylee Sanches, RN)1147 (Given - Provider: Rylee Sanches, RN) lidocaine (PF) 10 mg/mL (1 %) injection 2 mg 2 mg, intradermal, PRN, 4 doses, Starting on Tue04/18/24 at 2056, Until Tue04/20/24 at 1900, peripheral intravenous catheter placement, Routine 1032 (DEC Hold - Provider: Automatic Transfer Provider Hn - Reason: Patient off unit)1256 (DEC Unhold - Provider: Automatic Transfer Provider Hn) midazolam (PF) (VERSED) injection (CANCELED) PRN, Starting on Gita 04/19/24 at 1056, Until Gita 04/19/24 at 1204, Routine, Intraprocedure 1056 (Given - Provider: Rylee Sanches, RN)1110 (Given - Provider: Rylee Sanches, RN)1140 (Given - Provider: Rylee Sanches, RN) polyethylene glycol 3350 (MIRALAX) packet 17 g 17 g, oral, DAILY PRN, Starting on Tue04/18/24 at 2057, Until Tue04/20/24 at 1900, Constipation, Routine 1032 (DEC Hold - Provider: Automatic Transfer Provider Hn - Reason: Patient off unit)1256 (DEC Unhold - Provider: Automatic Transfer Provider Hn) senna (SENOKOT) tablet 2 Tablet 2 Tablet, oral, AT BEDTIME PRN, Starting on Tue04/18/24 at 2057, Until Tue04/20/24 at 1900, Constipation, Routine 1032 (DEC Hold - Provider: Automatic Transfer Provider Hn - Reason: Patient off unit)1256 (MAR Unhold - Provider: Automatic Transfer Provider Hn) documented in this encounter Orders Medications Ordered That Fabrice ht Not Have Been Administered Count Last Ordered Date First Ordered Date diphenhydrAMINE (BENADRYL) capsule 25 mg 1 04/19/2024 fentaNYL citrate (PF) 50 mcg/mL injection 2 04/19/2024 fentaNYL citrate (PF) injection 1 4 HYDROmorphone (DILAUDID) tablet 1 mg 2 04/09 lidocaine (PF) 100 mg/5 mL (2 %) syringe 1 04/19/2024 lidocaine (PF) 20 mg/mL (2 %) injection 1 0 04/19/2024 midazolam (PF) (VERSED) 1 mg/mL injection 2 04/19/2024 midazolam (PF) (VERSED) injection 1 024 lidocaine (PF) 10 mg/mL (1 % ) injection 2 mg 1 04/18/2024 polyethylene glycol 3350 ([place] RALAX) packet 17 g 1 04/18/2024 senna (SENOKOT) tablet 2 Tablet 1 4 Diet Count Last Ordered Date First Orde red Date DISCHARGE DIET 3 04/20/2024 Nursing Count Last Ordered Date First Orde red Date WOUND CARE INSTRUCTIONS 2 04/20/2024 PATIENT AT LOW RISK FOR VTE: RISK OF MECHANICAL PROPHYLAXIS OUTWEIGHS 1 04/19/2024 PATIENT AT LOW RISK FOR VTE: RISK OF PHARMACOLOGIC PROPHYLAXIS OUTWEIG 1 04/19/2024 Admission Count Last Ordered Date First Orde red Date ADMIT TO INPATIENT 2 04/18/2024 Discharge Count Last Ordered Date First Orde red Date DISCHARGE PATIENT 1 04/20/2024 Case Request Count Last Ordered Date First Orde red Date 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
--- OUTSIDE RECORDS SUMMARY | 2024-07-01 22:55 | XMS_ITS | Referral Summary ---
Author Organization [facility] Address [address] [place] [address] Care Team Providers Care Rn Hosp[facility] Name Role Phone Evelyn Jovel PHANI Primary Care Provider [phone] Encounters Date Type Department Care Team Description 04/18/2024 20:28 EDT - 04/20/2024 17:00 EDT Hospital Encounter [facility] Specialty Surgery Unit [address] [place] [address] Delgado Kiser MD Hopkins, Johnathon Mina MD Pericardial effusion with cardiac tamponade (Primary Dx); Pericardial effusion; Subacute effusive constrictive pericarditis; Pericardial tamponade Discharge Disposition: Home or Self Care 04/19/2024 9:40 EDT - 04/19/2024 10:40 EDT Surgery [facility] Invasive Cardiology Unit [address] [place] [address] Dominick Romano MD Pericardial Tap 04/18/2024 Travel from Last 3 Months Allergies Active Allergy Reactions Criticality Noted Date [...] 04/19/2024 Pericardial effusion with cardiac tamponade 04/09 Social History Tobacco Use Types Packs/Day Years Used Date Smoking Tobacco: Never Smokeless Tobacco: Never Tobacco Cessation:Counseling Given: No Alcohol Use Standard Drinks/Week Comments Never 0 (1 standard drink = 0.6 oz pur e alcohol) [facility] Utilities Answer Date Recorded In the past 12 months has th e [employer], gas, oil, or water [employer] threatened to shut off services in your [...] were you homeless or living in a fdc (including now)? No 04/19/2024 Interpersonal Safety Answer Date Record ed How often does anyone, inclu manpreet family, hit, punch or physically hurt you? 04/18/2024 How often does anyone, inclu manpreet family, insult, scream, curse or threaten to hurt you? 04/18/2024 Sex and Gender Information Value Date Recorded Sex Assigned at Not on file Gender Identity Not on file Sexual Orientation Not on file Last Filed Vital Signs Vital Sign Reading [...] Body Mass Index 32.81 04/19/2024 1200 EDT Functional Status Functional Status Response Date of [...] (5 years old or older) No 04/18/2024 Plan of Treatment Upcoming Encounters Date Type Department Care Team (Late st Contact Info) Description 07/10/2024 16:00 EDT Office Visit [facility] [place] [address] Juanito Phillips MD [address] [place], [place] [address] Procedures Procedure Name Priority Date/Time Associated Diagnosis Comments ECG REPORT - SCANNED 04/26/2024 9:08 EDT ECG REPORT - SCANNED 04/23/2024 17:54 EDT TRANSTHORACIC ECHO (TTE) LIMITED Routine 04/20/2024 9:56 EDT ECG REPORT - SCANNED 04/20/2024 9:03 EDT COMPLETE BLOOD COUNT Routine 04/20/2024 5:53 EDT COMPREHENSIVE METABOLIC PANEL (CMP) Routine 04/20/2024 5:53 EDT C REACTIVE PROTEIN Routine 04/20/2024 5: 53 EDT NON ETHICS MANAGER/FNA CYTOLOGY Routine 04/19/2024 12:07 EDT Pericardial effusion [...] 9:08 EDT) 04/26/2024 9:08 EDT Scan 2 Hand Rounder PROCEDURE/MINOR CARMENZA GICAL ORDERABLES * ECG REPORT - SCANNED (04/23/2024 17:54 EDT) 04/23/2024 17:5 4 EDT Scan 2 Hand Rounder PROCEDURE/MINOR CARMENZA GICAL ORDERABLES * TRANSTHORACIC ECHO [...] color Doppler.The study was interpreted by [facility] Cardiology. Pertinent images and [...] 9:03 EDT) 04/20/2024 9:03 EDT Scan 2 Hand Rounder PROCEDURE/MINOR CARMENZA GICAL ORDERABLES * (ABNORMAL) COMPLETE BLOOD COUNT (04/20/2024 5:53 EDT) Only the most recent of2 resultswithin the time period is included. WBC 10.07 4.00 - 10.40 K/cmm 04/20/2024 6:28 [facility] RBC 4.63 4.36 - 5.78 M/cmm 04/20/2024 6:28 [facility] Hemoglobin 13.6(L) 13.8 - 17.3 g/dL 04/20/2024 6:28 [facility] HCT 39.9 39.5 - 50.2 % 04/20/2024 6:28 [facility] MCV 86 81 - 95 fL 04/20/2024 6:28 [facility] MCH 29.4 27.6 - 33.0 pg 04/20/2024 6:28 [facility] MCHC 34.1 32.8 - 36.4 g/dL 04/20/2024 6:28 [facility] RDW-CV 12.5 <14.2 % 04/20/2024 6:28 EDT [facility] RDW-SD 39.4 <46.0 fl 04/20/2024 6:28 EDT [facility] PLT 337 141 - 377 K/cmm 04/20/2024 6:28 EDT [facility] MPV 10.2 9.5 - 12.7 fL 04/20/2024 6:28 EDT [facility] Blood VENOUS BLOOD / Unknown Venipuncture / Unknown 04/20/2024 5:53 EDT 04/20/2024 6:22 EDT Greg Miranda MD HEMATOLOGY & PF 4 ORDERABLES Performing Organization Address [facility] Co de Phone Number [facility] [address] [place] [address] * (ABNORMAL) C REACTIVE PROTEIN (04/20/2024 5:53 EDT) Only the most recent of2 resultswithin the time period is included. C-Reactive Protein 237.5(H) <10.0 mg/L 04/20/2024 7:16 EDT [facility] Blood VENOUS BLOOD / Unknown Venipuncture / Unknown 04/20/2024 5:53 EDT 04/20/2024 6:26 EDT Shanae Osei MD CHEMISTRY & BLOOD G ORDERABLES Performing Organization Address City/[facility] Co de Phone Number [facility] [address] [place] [address] * (ABNORMAL) COMPREHENSIVE METABOLIC PANEL (CMP) (04/20/2024 5:53 EDT) Only the most recent of3 resultswithin the time period is included. Sodium 139 136 - 145 mmol/L 04/20/2024 6:58 EDT [facility] Potassium 3.9 3.5 - 5.0 mmol/L 04/20/2024 6:58 EDT [facility] Chloride 105 96 - 110 mmol/L 04/20/2024 6:58 [facility] CO2 Total 20(L) 22 - 32 mmol/L 04/20/2024 6:58 [facility] Glucose 125(H) 70 - 99 mg/dl 04/20/2024 6:58 [facility] BUN 23 10 - 26 mg/dL 04/20/2024 6:58 [facility] Creatinine 0.91 0.66 - 1.25 mg/dL 04/20/2024 6:58 [facility] eGFR 107 >60 mL/min/1.7 3m2 04/20/2024 6:58 [facility] Total Protein 6.0(L) 6.3 - 8.2 g/dL 04/20/2024 6:58 [facility] Albumin 3.4 3.4 - 4.9 g/dL 04/20/2024 6:58 [facility] Alkaline Phosphatase 62 38 - 126 U/L 04/20/2024 6:58 [facility] AST 22 15 - 46 U/L 04/20/2024 6:58 [facility] ALT 54(H) <50 U/L 04/20/2024 6:58 [facility] Bilirubin, Total 0.6 <1.4 mg/dL 04/20/20 24 6:58 [facility] Calcium 8.7 8.5 - 10.5 mg/dL 04/20/2024 6:58 [facility] Albumin/Globulin Ratio 1.3 1.0 - 2.5 04/20/2024 6:58 [facility] Anion Gap 14 5 - 14 mmol/L 04/20/2024 6:58 [facility] Blood VENOUS BLOOD / Unknown Venipuncture / Unknown 04/20/2024 5:53 EDT 04/20/2024 6:26 EDT Greg Miranda MD CHEMISTRY & BLO OD GAS ORDERABLES Performing Organization Address City/State/[facility] Co de Phone Number [facility] [address] [place] [address] * NON ETHICS MANAGER/FNA CYTOLOGY (04/19/2024 12:07 EDT) Note to Patient The following pathology results have been interpreted by your pathologist and may be available to you before your health provider has had the opportunity to review them. Please allow time for your provider to receive these results and explore management options, if applicable. 04/20/2024 14:29 EDT [facility] Final Diagnosis A. PERICARDIAL FLUID, CYTOLOGIC EVALUATION: - Negative for malignant cells. - Background contains abundant red blood cells and mixed inflammatory cells. 04/20/2024 14:29 [facility] Attestation By the signature below, the attending physician certifies that they have personally conducted a gross and/or microscopic examination of the described specimens and rendered or confirmed the above diagnosis. 04/20/2024 14:29 EDT [facility] at 1429 Clinical History early tamponade, pericardial effusion 04/20/2024 14:29 [facility] Gross Description A. 400 cc's of dark red fluid were received and processed by selective cellular enhancement technique. 04/20/2024 14:29 T [facility] Performing Lab [facility] 04/20/2024 14:29 [facility] Scanned Images 04/20/2024 14:29 [facility] Fluid PERICARDIAL FLUID / Unknown 04/19/2024 12:07 EDT 04/19/2024 13:31 EDT Shanae Osei MD PATHOLOGY ORDERABLE S [facility] [address], [place] [id number] * FLUID CELL COUNT (04/19/2024 12:07 EDT) RBC, Fluid 472,500 /cmm 04/19/2024 15:18 EDT [facility] Nucleated Cells, fluid 7,925 /cmm 04/19/2024 15:18 EDT [facility] Comment, fluid Moderately bloody Moderately cloudy 04/19/2024 15:18 EDT [facility] Fluid PERICARDIAL FLUID / Unknown 04/19/2024 12:07 EDT 04/19/2024 12:36 EDT Shanae Osei MD HEMATOLOGY & PF4 OR DERABLES [facility] [address] [place] [address] * AFB CULTURE/SMEAR, OTHER (04/19/2024 12:07 EDT) Organism ID No acid-fast bacilli isolated VITEK SUSCEPTIBILITY 06/15/2024 10:39 EDT [facility] AFB Smear No Acid Fast Bacilli Seen 06/15/2024 10:39 EDT [facility] Fluid PERICARDIAL FLUID / Unknown 04/19/2024 12:07 EDT 04/19/2024 12:36 EDT Shanae Osei MD MICROBIOLOGY - GENE RAL ORDERABLES Performing Organization Address City/[facility]/ZIP Co de Phone Number [facility] [address] [place] [address] * HOLD FLUID (04/19/2024 12:07 EDT) Hold Hold 04/19/2024 13:46 EDT [facility] Fluid PERICARDIAL FLUID / Unknown 04/19/2024 12:07 EDT 04/19/2024 12:36 EDT Shanae Osei MD LAB INFO SERVICE AN D SUPPORT & PHONE RESULT [facility] [address] [place] [address] * (ABNORMAL) ANAEROBE CULTURE/SMEAR(INC. AEROBES), OTHER (04/19/2024 12:07 EDT) Organism ID No Growth 04/24/2024 11:46 EDT [facility] Smear Neutrophils Present(A) 04/24/2024 11:46 EDT [facility] Smear No bacteria seen(A) 04/24/2024 11:46 EDT [facility] Fluid PERICARDIAL FLUID / Unknown 04/19/2024 12:07 EDT 04/19/2024 12:36 EDT Shanae Osei MD MICROBIOLOGY - GENE RAL ORDERABLES Performing Organization Address City/[facility] Co de Phone Number [facility] [address], [place] [id number] * FUNGUS CULTURE/SMEAR (04/19/2024 12:07 EDT) Organism ID No fungi isolated 05/17/2024 8:31 EDT [facility] Fungal Smear No Fungi Seen 05/17/2024 8:31 EDT [facility] Fluid PERICARDIAL FLUID / Unknown 04/19/2024 12:07 EDT 04/19/2024 12:36 EDT Shanae Osei MD MICROBIOLOGY - GENE RAL ORDERABLES Performing Organization Address City/[facility]/ZIP Co de Phone Number [facility] [address], [place] [phone] * FLUID DIFFERENTIAL (04/19/2024 12:07 EDT) Neutrophils Fluid Relative 69 % 04/19/2024 15:20 EDT [facility] Lymphocytes Fluid Relative 19 % 04/19/2024 15:20 EDT [facility] [place]/Macrophage 12 % 15:20 EDT [facility] Fluid PERICARDIAL FLUID / Unknown 04/19/2024 12:07 EDT 04/19/2024 12:36 EDT Shanae Osei MD GEN LAB [facility] [place] [facility] ORDERABLES [facility] [address] [place] [address] * PERICARDIAL TAP (04/19/2024 12:04 EDT) Anatomical Region Laterality Modality Passenger Car Conductor 04/19/2024 11:0 6 EDT Narrative 04/24/2024 9:43 EDT Cardiology [address] [place] [address] Pericardiocentesis Patient: Praful Perez Study Date: ??04/19/2024 [...] Note Dominick Romano MD - 04/24/[address] [place] [address] Pericardiocentesis Patient: Praful Perez Study Date: 04/19/2024 : 1980 Referring: Deven Multani Diagnostic Attending: Dominick Romano Interventional Attending: Dominick Romano ATTESTATION: IDr. Ayaka was the initial author of this report. [...] MD 2024-04-24 09:42 Deven Garza CARDIAC CATH ORDKarsten LOVE * TRANSTHORACIC ECHO (TTE) COMPLETE W/DOPPLER W/CF NO CONTRAST (04/19/2024 9:09 EDT) Pathologist [facility] Mitral deceleration time 243 ms [facility] POIN [...] color Doppler.The study was interpreted by [facility] Cardiology. Pertinent images and [...] 09:54 EDT. Deven Garza CARDIAC ECHO REGIE SUSANSARAH * SARS COV2, FLU A/B, RSV DETECT BY PCR (04/19/2024 8:45 EDT) FLU A RNA Result (FLARES) Negative Negative 04/19/2024 10:00 EDT [facility] FLU B RNA Result (FLBRES) Negative Negative 04/19/2024 10:00 EDT [facility] RSV RNA Result (RSVRES) Negative Negative 04/19/2024 10:00 EDT [facility] COVID-19 rt-PCR Result Negative Negative 04/19/2024 10:00 EDT [facility] Comment: Negative results do not preclude 2019-nCoV infection and should not be used as the sole basis for treatment or other patient management decisions. Negative results must be combined with clinical observations, patient history, and epidemiological information. Performed on the [employer] GeneXpert Instrument Swab NASOPHARYNGEAL STRUCTURE / Unknown Swab / Unknown 04/19/2024 8:45 EDT 04/19/2024 9:04 EDT Shanae Osei MD MICROBIOLOGY - GENE [employer] ORDERABLES Performing Organization Address [facility] Co de Phone Number [facility] [address] [place] [address] * EXPANDED RESPIRATORY VIRAL PANEL, PCR (DOES NOT INCLUDE INFLUENZA OR RSV) (04/19/2024 8:45 EDT) [facility] Paraflu Type 1 Rslt (PF1RES) Negative Negative 04/19/2024 14:07 EDT [facility] Paraflu Type 2 Rslt (PF2RES) Negative Negative 04/19/2024 14:07 EDT [facility] Paraflu Type 3 Rslt (PF3RES) Negative Negative 04/19/2024 14:07 EDT [facility] Paraflu Type 4 Rslt Negative Negative 04/19 14:07 EDT [facility] Rhinovirus RNA Rslt (RVRES) Negative Negative 04/19/2024 14:07 EDT [facility] Metapneumovirus RNA Rslt (HMVRES) Negative Negative 04/19/2024 14:07 EDT [facility] Adenovirus DNA Rslt (ADVRES) Negative Negative 04/19/2024 14:07 EDT [facility] Swab NASOPHARYNGEAL STRUCTURE / Unknown Swab / Unknown 04/19/2024 8:45 EDT 04/19/2024 9:04 EDT Shanae Osei MD MICROBIOLOGY - GENE [facility] ORDERABLES Performing Organization Address [facility]/ZIP Co de Phone Number [facility] [address] [place] [address] * DOUBLE STRANDED DNA ANTIBODY, IGG (04/19/2024 8:19 EDT) [facility] dsDNA Ab, IgG <22.0 <27.0 IU/mL 2024 11:50 EDT [facility] Comment: Negative: <27.0 IU/mL Indeterminate: 27.0 - 35.0 IU/mL Positive: >35.0 IU/mL Results were obtained with [employer] Flash dsDNA chemiluminescent immunoassay. Values obtained with different manufacturers' assay methods may not be used interchangeably. Blood VENOUS BLOOD / Unknown Venipuncture / Unknown 04/19/2024 8:19 EDT 04/19/2024 8:35 EDT Shanae Osei MD IMMUNOLOGY AND SERO LOGY ORDERABLES Performing Organization Address [facility] Co de Phone Number [facility] [address] [place] [address] * HIV 1/2 ANTIGEN AND ANTIBODY, 4TH GENERATION (04/19/2024 8:19 EDT) [facility] HIV 1 and 2 Antibody/p24 Antigen, 4th Generation Negative Negative 04/19/2024 11:28 EDT [facility] Comment:If acute HIV-1 infec tion is suspected in a high risk patient, submit plasma specimen for HIV-1 RNA quantitation test. Blood VENOUS BLOOD / Unknown Venipuncture / Unknown 04/19/2024 8:19 EDT 04/19/2024 8:35 EDT Narrative [facility] - 04/19/2024 11:28 EDT Fourth Generation assay performed on the Siemens Centaur XPT. Shanae Osei MD IMMUNOLOGY AND SERO LOGY ORDERABLES Performing Organization Address [facility]/State/ZIP Co de Phone Number [facility] [address] [place] [address] * ANTI NUCLEAR AB (EMIR), IFA (04/19/2024 8:19 EDT) [facility] MEIR Interpretation Negative Negative 2023 13:44 EDT [facility] Comment:No titer performed, EMIR Screen is negative. Blood VENOUS BLOOD / Unknown Venipuncture / Unknown 04/19/2024 8:19 EDT 04/19/2024 8:35 EDT Narrative [facility] - 04/20/2024 13:44 EDT Results were obtained with the [employer] NOVA Lite HEp-2 EMIR Kit by indirect immunofluorescence. Shanae Osei MD IMMUNOLOGY AND SERO LOGY ORDERABLES [facility] [address] [place] [address] * XR CHEST PORTABLE 1 VIEW (04/18/2024 22:05 EDT) Anatomical Region Laterality Modality Computed Radiogr aphy 04/19/2024 8:08 EDT Impressions 04/19/2024 8:08 EDT Enlarged cardiomediastinal silhouette, otherwise no acute abnormality identified. I have personally reviewed the images and the above interpretation and agree with the findings. [id number] Narrative 04/19/2024 8:08 EDT XR CHEST PORTABLE 1 VIEW ??04/18/2024 10:05 PM Clinical History/comments: cardiac tamponade; Comparison: None. Technique: Single portable AP view of the chest. Findings: Lines/tubes/devices: None. Lungs: Thin bibasilar linear atelectasis. No consolidation. Pleura: No visible abnormality. Cardiac and mediastinal contours: Enlarged cardiomediastinal silhouette. Soft tissues and extrathoracic findings: No significant finding. Bones: No discrete abnormality. Resulting Agency Comment [id number] Procedure Note Elier Cardoza MD - 04/19/2024 [...] the above interpretation andagree with the findings. [id number] Greg Miranda MD IMG DIAGNOSTIC IMAGING ORDERABLES * EKG 12-LEAD (04/18/2024 21:10 EDT) 04/18/2024 21:1 0 EDT Narrative [facility] EKG - 04/20/2024 8:57 EDT ? [facility] ? Test Date: ?2024-04-18 Pat Name: ? PRAFUL PEREZ ?Department: ?? [address] ? Room: ? [id number] Gender: ? Male ? 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 : ?1980 ? Requested By: ADITI CARREON Order Number: [id number] ? Lidia WILKES: ?? MIREYA ZUNIGA MD ? Measurements Intervals ?[place] ? Rate: ? 93 ? P: ?10 CO: ? 129 ?QRS: ?41 QRSD: ? 96 [...] Note Mireya Zuniga MD - 04/20/2024 [facility] Test Date: 2024-04-18 Pat Name: PRAFUL PEREZ Department: [place] [address] Room: [facility] Gender: Male Title Attorney: : 1980 Requested By: ADITI CARREON Order Number: [id number] Reading MD: MIREYA ZUNIGA MD Measurements Intervals [place] Rate: 93 P: 10 CO: 129 QRS: 41 QRSD: 96 T: 30 QT: 336 QTc: 419 Interpretive Statements SINUS RHYTHM Diffuse ST elevation consistent with pericarditis. No previous ECG available for comparison I reviewed the tracing and have either agreed or edited the findings inthis report. Electronically Signed On 04-20-2024 08:57:39 EDT by MIREYA SHERMAN. Greg Miranda MD CARDIAC ECG ORD ERABLES [facility] EKG * LACTIC ACID (04/18/2024 21:10 EDT) [facility] Lactic Acid 1.4 <=2.0 mmol/L 04/18/2024 21:35 EDT [facility] Blood VENOUS BLOOD / Unknown Venipuncture / Unknown 04/18/2024 21:10 EDT 04/18/2024 21:15 EDT Greg Miranda MD CHEMISTRY & BLO OD GAS ORDERABLES Performing Organization Address City/[facility]/ZIP Co de Phone Number [facility] [address] [place] [address] * (ABNORMAL) COMPLETE BLOOD COUNT AND DIFFERENTIAL (04/18/2024 21:10 EDT) [facility] WBC 12.48(H) 4.00 - 10.40 K/cmm 04/18/2024 21:30 [facility] RBC 4.79 4.36 - 5.78 M/cmm 04/18/2024 21:30 [facility] Hemoglobin 14.1 13.8 - 17.3 g/dL 04/18/2024 21:30 [facility] HCT 41.2 39.5 - 50.2 % 04/18/2024 21:30 [facility] MCV 86 81 - 95 fL 04/18/2024 21:30 [facility] MCH 29.4 27.6 - 33.0 pg 04/18/2024 21:30 [facility] MCHC 34.2 32.8 - 36.4 g/dL 04/18/2024 21:30 [facility] RDW-CV 13.1 <14.2 % 04/18/2024 21:30 [facility] RDW-SD 40.7 <46.0 fl 04/18/2024 21:30 [facility] PLT 320 141 - 377 K/cmm 04/18/2024 21:30 [facility] MPV 10.1 9.5 - 12.7 fL 04/18/2024 21:30 [facility] % Neutrophils 71.1 % 04/18/2024 21:30 [facility] % Lymphocytes 15.6 % 04/18/2024 21:30 [facility] % Monocytes 12.2 % 04/18/2024 21:30 [facility] % Eosinophils 0.4 % 04/18/2024 21:30 [facility] % Basophils 0.2 % 04/18/2024 21:30 [facility] % Immature Grans 0.5 % 04/18/20 21:30 [facility] Absolute Neutrophils 8.87(H) 2.20 - 8.85 K/cmm 04/18/2024 21:30 [facility] Absolute Lymphocytes 1.95 1.09 - 3.30 K/cmm 04/18/2024 21:30 [facility] Absolute Monocytes 1.52(H) 0.10 - 0.80 K/cmm 04/18/2024 21:30 [facility] Absolute Eosinophils 0.05 0.03 - 0.61 K/cmm 04/18/2024 21:30 [facility] ABS Basophils 0.03 0.01 - 0.11 K/cmm 04/18/2024 21:30 [facility] Absolute Immature Grans 0.06 0.00 - 0.06 K/cmm 04/18/2024 21:30 [facility] SERVICES Type of Differential: Auto 04/18/2024 21:30 [facility] Blood VENOUS BLOOD / Unknown Venipuncture / Unknown 04/18/2024 21:10 EDT 04/18/2024 21:17 EDT Greg Miranda MD PACKAGES & DNA PROBE ORDERABLES [facility] [address] [place] [address] * (ABNORMAL) NT PRO BNP (04/18/2024 21:10 EDT) NT-pro BNP 162(H) <125 pg/mL 04/18/2024 22:29 EDT [facility] Comment: In the acute setting NT-proBNP values <300 pg/mL have a 98% NPV for excluding acute heart failure. In outpatient populations, NT-proBNP values <125 have a 99% NPV for excluding heart failure. Blood VENOUS BLOOD / Unknown Venipuncture / Unknown 04/18/2024 21:10 EDT 04/18/2024 21:15 EDT Greg Miranda MD CHEMISTRY & BLO OD GAS ORDERABLES Performing Organization Address [facility] Co de Phone Number [facility] [address] [place] [address] from Last 3 Months Advance Directives For more information, please contact: [phone] * Full Code (Latest Code Status on File) Date Activated Date Inactivated Comments 04/18/2024 20:58 04/20/2024 19:05 Question Answer Comments When the patient has NO PULSE: Full Code / CPR Who Made the Decision? Default/Not Discussed Care Teams Rn Hospice Relationship Specialty Start Date End Date Evelyn Jovel NP [facility] [place] [address] [address] PCP - General Family Medicine - Primary Care 06/10/23
--- OUTSIDE RECORDS SUMMARY | 2024-07-01 22:55 | XMS_ITS | Encounter Summary ---
Author Organization [facility] Address [address] [place] [address] Care Team Providers Care Manager Auto Name Role Phone Evelyn Jovel DIGITAL DIRECTOR Primary Care Provider [phone] Encounter Details Date Type Department Care Team (Latest Contact Info) Description 04/18/2024 Travel Social History Tobacco Use Types Packs/Day Years Used Date Smoking Tobacco: Never Smokeless Tobacco: Never Alcohol Use Standard Drinks/Week Comments Never 0 (1 standard drink = 0.6 oz pur e alcohol) [facility] Utilities Answer Date Recorded In the past 12 months has th e [employer], gas, oil, or water [employer] threatened to shut off services in your [...] any time in the past 12 m [facility], were you homeless or living in a prison (including now)? No 04/19/2024 Interpersonal Safety Answer [...] as of this encounter Plan of Treatment Upcoming Encounters Date Type Department Care Team (Late st Contact Info) Description 07/10/2024 16:00 EDT Office Visit [facility] Cardiology - [facility] [address] [place], [place] [id number] Juanito Phillips MD [address] [place], [place] [address] documented as of this encounter Visit Diagnoses Not on filedocumented in this encounter Care Teams Manager Auto Relationship Specialty Start Date End Date Evelyn Jovel, PHANI [address] [place] [address] PCP - General Family Medicine - Primary Care 06/10/23 documented as of this encounter
--- OUTSIDE RECORDS SUMMARY | 2024-07-01 22:55 | XMS_ITS | Encounter Summary ---
Author Organization [facility] Address [address] [place] [address] Care Team Providers Care Hog Stomach Preparer Name Role Phone Evelyn Jovel ORDER EDITOR Primary Care Provider [phone] Encounter Details Date Type Department Care Team (Late st Contact Info) Description 06/30/2023 Lab Requisition [facility] Pathology & Laboratory Medicine - [facility] [address] [place], [place] [id number] Lisa Flower APRN [address] [place] [address] [address] [place], [place] [address] Other diseases of tongue Social History Tobacco Use Types Packs/Day Years Used Date Smoking Tobacco: Never Assessed Sex and Gender Information Value Date Recorded Sex Assigned at Not on file Gender Identity Not on file Sexual Orientation Not on file documented as of this encounter Plan of Treatment Upcoming Encounters Date Type Department Care Team (Late st Contact Info) Description 07/10/2024 16:00 EDT Office Visit [facility] Cardiology - [place] [address] [place] [address] Juanito Phillips MD [address] [place], [place] [address] documented as of this encounter Procedures Procedure Name Priority Date/Time Associated Diagnosis Comments SURGICAL PATHOLOGY Today 06/30/2023 12 :05 EDT Other diseases of tongue documented in this encounter Results * SURGICAL PATHOLOGY (06/30/2023 12:05 EDT) Note to Patient The following pathology results have been interpreted by your pathologist and may be available to you before your health provider has had the opportunity to review them. Please allow time for your provider to receive these results and explore management options, if applicable. 07/05/2023 14:48 T [facility] Final Diagnosis A. TONGUE, RIGHT LATERAL, BIOPSY: -Fibroma with focal ulceration. See comment. 07/05/2023 14:48 [facility] Diagnosis Comment PAS stain is negative for fungal organisms. 07/05/2023 14:48 [facility] Attestation There was significant resident/fellow involvement in the diagnostic evaluation of this case. By the signature below, the attending physician certifies that they have personally conducted a gross and/or microscopic examination of the described specimens and rendered or confirmed the above diagnosis. 07/05/2023 14:48 [facility] at 1448 Clinical History Persistent for about 1 year, no pain or bleeding, flesh-colored, 8 mm, round, pedunculated; clinical diagnosis code: K14.8 07/05/2023 14:48 [facility] Gross Description A. Received in formalin labelled with proper patient identification (initials F, T) and R lateral tongue is an ovoid rubbery white and brown nodular lesion, 0.7 x 0.6 x 0.5 cm. The base margin is inked. Bisected and entirely submitted in A1. BRIANNA BECERRA(ASCP) 07/01/2023 9:40 07/05/2023 14:48 T [facility] Resident/Daquan w: Greg Avendaño MD 07/05/2023 14:48 T [facility] Performing Lab [facility] 07/05/2023 14:48 T [facility] Scanned Images 07/05/2023 14:48 [facility] Tissue TONGUE STRUCTURE / Unknown 06/30/2023 12:05 EDT 06/30/2023 23:45 EDT Lisa Flower STOVE CARRIAGE OPERATOR PATHOLOGY ORDERABLE S [facility] [address] [place] [address] documented in this encounter Visit Diagnoses Diagnosis Other diseases of tongue documented in this encounter Additional Health Concerns Infection Onset Date Last Indicated Resolved Time R/O COVID-19 04/19/2024 04/19/2024 04/19/2024 10:0 0 EDT documented as of this encounter Care Teams Hog Stomach Preparer Relationship Specialty Start Date End Date Evelyn Jovel, ORDER EDITOR [address] [place] [address] PCP - General Family Medicine - Primary Care 06/10/23 documented as of this encounter
--- OUTSIDE RECORDS SUMMARY | 2024-07-01 22:55 | XMS_ITS | Encounter Summary ---
Author Organization [facility] Address [address] [place] [address] Care Team Providers Care Micro Photographer Name Role Phone Evelyn Jovel WATER QUALITY TESTER Primary Care Provider [phone] Reason for Visit * Auth/Cert (Routine) Specialty Diagnoses / Procedures Referred By Pooja brooke Referred To Contact Diagnoses Pericardial effusion with cardiac tamponade PERICARDITIS Referral ID Status Reason Start Date Expiration Date Visits Re quested Visits Authorized [id number] 1 1 Encounter Details Date Type Department Care Team (Late st Contact Info) Description 04/19/2024 9:40 EDT - 04/19/2024 10:40 EDT Surgery [facility] Invasive Cardiology Unit [address] [place] [address] Dominick Romano MD [address] [facility] [address] [place] [phone] Pericardial Tap Surgery Details Date/Time Status Location OR Service Patient Class Case Class Case Type Trauma Case? 04/19/24 0940 Posted [facility] Manager Field Manager Field 2 Cardiovascular Inpatient Panel 1 Procedure LRB Anes Op Region Wound Class Comments Pericardial Tap N/A None Chest Surgeon Surgeon Role Service Panel Dominick Romano MD Primary Cardiovascular 1 Ayaka Martinez DO Fellow Interventional Cardiolo gy 1 Kevin Newberry MD Fellow Cardiovascular 1 documented in this encounter Social History Tobacco Use Types Packs/Day Years Used Date Smoking Tobacco: Never Smokeless Tobacco: Never Tobacco Cessation:Counseling Given: No Alcohol Use Standard Drinks/Week Comments Never 0 (1 standard drink = 0.6 oz pur e alcohol) [facility] Utilities Answer Date Recorded In the past 12 months has th e electric, gas, oil, or water company threatened to shut off services in your [...] No 04/19/2024 Housing Stability Vital Sign Answer Jluio e Recorded In the last 12 months, was t here a time when you were not able to pay the mortgage or rent on time? No 04/19/2024 In the past 12 months, how m any times have you moved where you were living? 0 04/19/2024 At any time in the past 12 m [facility], were you homeless or living in a mcc (including now)? No 04/19/2024 Interpersonal Safety Answer Date Record ed How often does anyone, keerthi case family, hit, punch or physically hurt you? 04/18/2024 How often does anyone, keerthi case family, insult, scream, curse or threaten to hurt you? 04/18/2024 Sex and Gender Information Value Date Recorded Sex Assigned at Not on file Gender Identity Not on file Sexual Orientation Not on file documented as of this encounter Last Filed Vital Signs Vital Sign Reading Time Taken Comments Blood Pressure 113/69 04/19/2024 0829 EDT Pulse 84 04/19/2024 0455 EDT Temperature 37.3 ??C (99.2 ??F) 04/19/2024 0829 EDT Respiratory Rate 18 04/19/2024 0455 EDT Oxygen Saturation 94% 04/19/2024 0829 EDT Inhaled Oxygen Concentration - - Weight 109.8 kg (242 lb) 04/18/20242156 EDT Height 182.9 cm (6') 04/18/2024 215 EDT Body Mass Index 32.81 04/19/2024 1200 [...] for cancer cells. Ronit Mejia MD Attending Casino Change Attendant Primary Care Provider: Evelyn Jovel Attending Physician: [...] PMHx of IVDU who initially presented to [facility] for several days of chest pain after GI illness, and was then transferred to [facility] for pericarditis with pericardial effusion concerning for tamponade physiology. Initial EKG (04/18) with ST segment elevations. Echo at [facility] showed moderate/large effusion (2.3 cm) with concern [...] for follow up with Pericarditis clinic at [facility] at [facility] and PCP follow up. Allergies and Immunizations [...] Component Value Units Date/Time Fungus Culture/Smear, Other [[id number]] Collected: 04/19/24 1207 Lab Status: Preliminary result Specimen: Fluid, Pericardial Fluid Updated: 04/20/24 1305 Fungal Smear No Fungi Seen ANAEROBE CULTURE/SMEAR(INC. AEROBES), OTHER [[id number]] (Abnormal) Collected: 04/19/24 1207 Lab Status: Preliminary result Specimen: Fluid, Pericardial Fluid Updated: 04/19/24 1457 Smear Neutrophils Present No bacteria seen AFB Culture/Smear, Other [[id number]] Collected: 04/19/24 120 Lab Status: In process Specimen: Fluid, Pericardial Fluid Updated: 04/19/24 1236 Anti DNA (Double Strand) [[id number]] Collected: 04/19/24 0819 Lab Status: In process Specimen: Blood, Venous Updated: 04/19/24 0835 Last Lab Results at Discharge BUN: Lab [...] 1 week Appointment with Pericarditis Clinic at [facility] on Kid Care Years documented in this encounter Medications at Time [...] Means Destination Comment s Home or Self Fdc documented in this encounter Progress Notes * Dilcia Anguiano, [place] - 04/19/2024 0922 EDT Initial Case Management/Social Work Assessment and Discharge Plan/Readmission Risk Assessment REASON FOR ADMISSION: Pericardial effusion with cardiac tamponade Patient understands reason for admission: Yes PATIENT INFO VERIFIED: PCP Type of housing (single family, condo, apartment, senior living, single room occupancy, [facility] funded hotel room, group mcc) - [facility] Who does the patient live with? Spouse who is expecting in 7 more weeks Does the patient have access to their own bedroom/bathroom/kitchen - or is it shared with others? own Name of housing complex (ex [facility], [facility], etc)- n/a Housing Authority/Managing Organization - n/a Community Care Providers (special education case manager, [facility] nurse, etc) name and contact information- [...] home Final Discharge Destination: Home with CULTURAL, SCIENTOLOGY and/or LANGUAGE factors affecting health care/discharge planning: Spiritual/Cultural Requests: None Insurance Information: Medical Insurance: Yes Type of insurance: Commercial insurance Commercial coverage: [employer] Referred to patient financial services: No Nutrition: [...] after his procedure. 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 Explained role of CM and will remain available as needed. No other CM needs noted at this time. ISAÍAS Muñoz Scoop Operator ISAÍAS MUÑOZ 04/19/2024 9:50 * Shanae Osei [...] history of IVDU who initially presented to [facility] for several days of chest pain after GI illness, transferred to [facility] for pericarditis with pericardial effusion concerning for tamponade physiology. Initial EKG concerning for inferior STEMI. Echo at [facility] showed moderate/large effusion (2.3 cm) with concern [...] with effusion #early tamponade physiology Echo at [facility] showed effusion (2.3 cm), RV diastolic collapse, [...] MD Internal Medicine PGY-3 Epic Chat preferred, #[phone](via PAS) 04/19/24 11:04 Associated attestation - Ronit Mejia MD - 04/19/2024 8988 EDT The patient was seen and evaluated [...] next couple days. Ronit Mejia MD Attending Casino Change Attendant Note: SmashChart dictation software was used to generate this [...] past medical history who initially presented to [facility] for several days of chest pain after GI illness, now transferred to [facility] for pericarditis with pericardial effusion concerning for tamponade physiology. States he initially had onset of severe nausea, vomiting, and diarrhea on 04/07/2024. Believes he vomited more than 15 times that day, with accompanying diarrhea as well. Elon subjectively febrile, did not check a temperature, [...] shortness of breath, prompting him to call 911, where he was found to have an EKG initially concerning for STEMI due to ST elevations in leads II, III, aVF. He wasbrought to [facility], where he was found to have a [...] septal bounce. His case was discussed with [facility], who declined transfer due to being at capacity. Subsequently his case was discussed with cardiology at [facility], who accepted him for transfer. Upon arrival, [...] None LHC: none Echocardiogram: Formal echocardiogram at [facility] showed moderate to large sized effusion measuring [...] Epic and Significant for: CBC Recent Labs 04/18/242109 WBC 12.48* RBC 4.79 HGB 14.1 HCT [...] ST elevations in leads V2 through V6. RI depressions in leads I, II, and V3-V6. Imaging: No results found. Assessment Praful Perez is a 43 y.o. male with no significant past medical history who initially presented to [facility] for several days of chest pain after GI illness, now transferred to [facility] for pericarditis with pericardial effusion concerning for tamponade physiology. Patient with normal heart rate in the 80s to 90s, normal to slightly elevated blood pressure, normal lactate and creatinine. Fellow performed POCUS on arrival is essentially unchanged from day prior, reviewed with overnight attending and appropriate to monitor tonight. Will continue colchicine and ibuprofen started at [facility], plan to trend CRP and perform limited [...] next couple days. RONIT MEJIA MD Attending Casino Change Attendant The Note: SmashChart dictation software was used to generate this [...] access Procedure: He was [facility] for the procedure: Pericardiocentesis [...] procedural complication required) Dominick Romano MD PagerNumber: [phone] secure chat 04/19/2024 11:54 documented in this encounter Miscellaneous [...] of Care - Marlon Sebastian RN - 04/18/20242134 EDT Data: 43y/o male admitted from [facility] for pericarditis with effusion, early evidence [...] Info) Description 07/10/2024 16:00 EDT Office Visit [facility] Cardiology - [address] [place] [address] Juanito Phillips MD [address] [place] [address] [phone] Pending Results Name Type Priority Associated Diagnoses [...] PANEL (CMP) Routine 04/20/2024 5:53 EDT NON SOCIAL WORKER AIDE/FNA CYTOLOGY Routine 04/19/2024 12:07 EDT Pericardial effusion [...] 9:08 EDT) 04/26/2024 9:08 EDT Scan 2 Volunteer Patient Representative PROCEDURE/MINOR CARMENZA GICAL ORDERABLES * ECG REPORT - SCANNED (04/23/2024 17:54 EDT) 04/23/2024 17:5 4 EDT Scan 2 Volunteer Patient Representative PROCEDURE/MINOR CARMENZA GICAL ORDERABLES * TRANSTHORACIC ECHO [...] color Doppler.The study was interpreted by [facility]. Pertinent images and digital [...] 9:03 EDT) 04/20/2024 9:03 EDT Scan 2 Volunteer Patient Representative PROCEDURE/MINOR CARMENZA GICAL ORDERABLES * (ABNORMAL) COMPLETE BLOOD COUNT (04/20/2024 5:53 EDT) WBC 10.07 4.00 - 10.40 K/cmm 04/20/2024 6:28 EDT [facility] RBC 4.63 4.36 - 5.78 M/cmm 04/20/2024 6:28 EDT [facility] Hemoglobin 13.6(L) 13.8 - 17.3 g/dL 04/20/2024 6:28 T [facility] HCT 39.9 39.5 - 50.2 % 04/20/2024 6:28 [facility] MCV 86 81 - 95 fL 04/20/2024 6:28 EDT [facility] MCH 29.4 27.6 - 33.0 pg 04/20/2024 6:28 [facility] MCHC 34.1 32.8 - 36.4 g/dL 04/20/2024 6:28 [facility] RDW-CV 12.5 <14.2 % 04/20/2024 6:28 [facility] RDW-SD 39.4 <46.0 fl 04/20/2024 6:28 [facility] PLT 337 141 - 377 K/cmm 04/20/2024 6:28 [facility] MPV 10.2 9.5 - 12.7 fL 04/20/2024 6:28 [facility] Blood VENOUS BLOOD / Unknown Venipuncture / Unknown 04/20/2024 5:53 EDT 04/20/2024 6:22 EDT Greg Miranda MD HEMATOLOGY & PF 4 ORDERABLES [facility] [address] [place] [address] * (ABNORMAL) COMPREHENSIVE METABOLIC PANEL (CMP) (04/20/2024 5:53 EDT) Sodium 139 136 - 145 mmol/L 04/20/2024 6:58 EDT [facility] Potassium 3.9 3.5 - 5.0 mmol/L 04/20/2024 6:58 T [facility] Chloride 105 96 - 110 mmol/L 04/20/2024 6:58 T [facility] CO2 Total 20(L) 22 - 32 mmol/L 04/20/2024 6:58 [facility] Glucose 125(H) 70 - 99 mg/dl 04/20/2024 6:58 [facility] BUN 23 10 - 26 mg/dL 04/20/2024 6:58 [facility] Creatinine 0.91 0.66 - 1.25 mg/dL 04/20/2024 6:58 [facility] eGFR 107 >60 mL/min/1.7 3m2 04/20/2024 6:58 [facility] Total Protein 6.0(L) 6.3 - 8.2 g/dL 04/20/2024 6:58 [facility] Albumin 3.4 3.4 - 4.9 g/dL 04/20/2024 6:58 [facility] Alkaline Phosphatase 62 38 - 126 U/L 04/20/2024 6:58 [facility] AST 22 15 - 46 U/L 04/20/2024 6:58 [facility] ALT 54(H) <50 U/L 04/20/2024 6:58 [facility] Bilirubin, Total 0.6 <1.4 mg/dL 04/20/20 24 6:58 [facility] Calcium 8.7 8.5 - 10.5 mg/dL 04/20/2024 6:58 [facility] Albumin/Globulin Ratio 1.3 1.0 - 2.5 04/20/2024 6:58 [facility] Anion Gap 14 5 - 14 mmol/L 04/20/2024 6:58 [facility] Blood VENOUS BLOOD / Unknown Venipuncture / Unknown 04/20/2024 5:53 EDT 04/20/2024 6:26 EDT Greg Miranda MD CHEMISTRY & BLO OD GAS ORDERABLES [facility] [address] [place] [address] * (ABNORMAL) C REACTIVE PROTEIN (04/20/2024 5:53 EDT) [facility] C-Reactive Protein 237.5(H) <10.0 mg/L 04/20/2024 7:16 EDT [facility] Blood VENOUS BLOOD / Unknown Venipuncture / Unknown 04/20/2024 5:53 EDT 04/20/2024 6:26 EDT Shanae Osei MD CHEMISTRY & BLOOD G ORDERABLES Performing Organization Address City/[facility]/ZIP Co de Phone Number [facility] [address] [place] [address] * FLUID DIFFERENTIAL (04/19/2024 12:07 EDT) [facility] Neutrophils Fluid Relative 69 % 04/19/2024 15:20 EDT [facility] Lymphocytes Fluid Relative 19 % 04/19/2024 15:20 EDT [facility] [place]/Macrophage 12 % 15:20 EDT [facility] Fluid PERICARDIAL FLUID / Unknown 04/19/2024 12:07 EDT 04/19/2024 12:36 EDT Shanae Osei MD GEN LAB UNIT COLLEC T ORDERABLES Performing Organization Address [facility] Co de Phone Number [facility] [address] [place] [phone] * HOLD FLUID (04/19/2024 12:07 EDT) [facility] Hold Hold 04/19/2024 13:46 EDT [facility] Fluid PERICARDIAL FLUID / Unknown 04/19/2024 12:07 EDT 04/19/2024 12:36 EDT Shanae Osei MD LAB INFO SERVICE AN D SUPPORT & PHONE RESULT Performing Organization Address City/[facility]/ZIP Co de Phone Number [facility] [address] [place] [phone] * FUNGUS CULTURE/SMEAR (04/19/2024 12:07 EDT) Organism ID No fungi isolated 05/17/2024 8:31 EDT [facility] Fungal Smear No Fungi Seen 05/17/2024 8:31 EDT [facility] Fluid PERICARDIAL FLUID / Unknown 04/19/2024 12:07 EDT 04/19/2024 12:36 EDT Shanae Osei MD MICROBIOLOGY - GENE RAL ORDERABLES Performing Organization Address City/[facility]/ZIP Co de Phone Number [facility] [address], [place] [phone] * (ABNORMAL) ANAEROBE CULTURE/SMEAR(INC. AEROBES), OTHER (04/19/2024 12:07 EDT) Organism ID No Growth 04/24/2024 11:46 EDT [facility] Smear Neutrophils Present(A) 04/24/2024 11:46 EDT [facility] Smear No bacteria seen(A) 04/24/2024 11:46 EDT [facility] Fluid PERICARDIAL FLUID / Unknown 04/19/2024 12:07 EDT 04/19/2024 12:36 EDT Shanae Osei MD MICROBIOLOGY - GENE RAL ORDERABLES Performing Organization Address City/[facility]/ZIP Co de Phone Number [facility] [address] [place] [phone] * AFB CULTURE/SMEAR, OTHER (04/19/2024 12:07 EDT) Organism ID No acid-fast bacilli isolated VITEK SUSCEPTIBILITY 06/15/2024 10:39 EDT [facility] AFB Smear No Acid Fast Bacilli Seen 06/15/2024 10:39 EDT [facility] Fluid PERICARDIAL FLUID / Unknown 04/19/2024 12:07 EDT 04/19/2024 12:36 EDT Shanae sOei MD MICROBIOLOGY - GENE RAL ORDERABLES Performing Organization Address City/[facility]/ZIP Co de Phone Number [facility] [address] [place] [address] * NON SOCIAL WORKER AIDE/FNA CYTOLOGY (04/19/2024 12:07 EDT) Note to Patient The following pathology results have been interpreted by your pathologist and may be available to you before your health provider has had the opportunity to review them. Please allow time for your provider to receive these results and explore management options, if applicable. 04/20/2024 14:29 T [facility] Final Diagnosis A. PERICARDIAL FLUID, CYTOLOGIC EVALUATION: - Negative for malignant cells. - Background contains abundant red blood cells and mixed inflammatory cells. 04/20/2024 14:29 [facility] Attestation By the signature below, the attending physician certifies that they have personally conducted a gross and/or microscopic examination of the described specimens and rendered or confirmed the above diagnosis. 04/20/2024 14:29 [facility] at 1429 Clinical History early tamponade, pericardial effusion 04/20/2024 14:29 [facility] Gross Description A. 400 cc's of dark red fluid were received and processed by selective cellular enhancement technique. 04/20/2024 14:29 T [facility] Performing Lab [facility] 04/20/2024 14:29 [facility] Scanned Images 04/20/2024 14:29 [facility] Fluid PERICARDIAL FLUID / Unknown 04/19/2024 12:07 EDT 04/19/2024 13:31 EDT Shanae Osei MD PATHOLOGY ORDERABLE S Performing Organization Address City/[facility]/ZIP Co de Phone Number [facility] [address] [place] [address] * FLUID CELL COUNT (04/19/2024 12:07 EDT) RBC, Fluid 472,500 /cmm 04/19/2024 15:18 EDT [facility] Nucleated Cells, fluid 7,925 /cmm 04/19/2024 15:18 EDT [facility] Comment, fluid Moderately bloody Moderately cloudy 04/19/2024 15:18 EDT [facility] Fluid PERICARDIAL FLUID / Unknown 04/19/2024 12:07 EDT 04/19/2024 12:36 EDT Shanae Osei MD HEMATOLOGY & PF4 OR DERMAIRA [facility] [address] [place] [address] * PERICARDIAL TAP (04/19/2024 12:04 EDT) Anatomical Region Laterality Modality Manager Field 04/19/2024 11:0 6 EDT Narrative 04/24/2024 9:43 EDT Cardiology [address] [place] [address] Pericardiocentesis Patient: Praful Perez Study Date: ??04/19/2024 [...] Note Dominick Romano MD - 04/24/[address] [place] [phone] Pericardiocentesis Patient: Praful Perez Study Date: 04/19/2024 [...] MD 2024-04-24 09:42 Deven Garza CARDIAC CATH ORDE IVAN * TRANSTHORACIC ECHO (TTE) COMPLETE W/DOPPLER W/CF NO CONTRAST (04/19/2024 9:09 EDT) [facility] Mitral deceleration time 243 ms [facility] POIN [...] color Doppler.The study was interpreted by [facility]. Pertinent images and digital [...] 09:54 EDT. Deven Garza CARDIAC ECHO ORDE SUSANSARHA * SARS COV2, FLU A/B, RSV DETECT BY PCR (04/19/2024 8:45 EDT) FLU A RNA Result (FLARES) Negative Negative 04/19/2024 10:00 EDT [facility] FLU B RNA Result (FLBRES) Negative Negative 04/19/2024 10:00 EDT [facility] RSV RNA Result (RSVRES) Negative Negative 04/19/2024 10:00 EDT [facility] COVID-19 rt-PCR Result Negative Negative 04/19/2024 10:00 EDT [facility] Comment: Negative results do not preclude 2019-nCoV infection and should not be used as the sole basis for treatment or other patient management decisions. Negative results must be combined with clinical observations, patient history, and epidemiological information. Performed on the [employer] Instrument Swab NASOPHARYNGEAL STRUCTURE / Unknown Swab / Unknown 04/19/2024 8:45 EDT 04/19/2024 9:04 EDT Shanae Osei MD MICROBIOLOGY - GENE [facility] ORDERABLES [facility] [address] [place] [phone] * EXPANDED RESPIRATORY VIRAL PANEL, PCR (DOES NOT INCLUDE INFLUENZA OR RSV) (04/19/2024 8:45 EDT) Paraflu Type 1 Rslt (PF1RES) Negative Negative 04/19/2024 14:07 EDT [facility] Paraflu Type 2 Rslt (PF2RES) Negative Negative 04/19/2024 14:07 EDT [facility] Paraflu Type 3 Rslt (PF3RES) Negative Negative 04/19/2024 14:07 EDT [facility] Paraflu Type 4 Rslt Negative Negative 04/19 14:07 EDT [facility] Rhinovirus RNA Rslt (RVRES) Negative Negative 04/19/2024 14:07 EDT [facility] Metapneumovirus RNA Rslt (HMVRES) Negative Negative 04/19/2024 14:07 EDT [facility] Adenovirus DNA Rslt (ADVRES) Negative Negative 04/19/2024 14:07 EDT [facility] Swab NASOPHARYNGEAL STRUCTURE / Unknown Swab / Unknown 04/19/2024 8:45 EDT 04/19/2024 9:04 EDT Shanae Osei MD MICROBIOLOGY - GENE RAL ORDERABLES Performing Organization Address [facility] de Phone Number [facility] [address] [place] [phone] * DOUBLE STRANDED DNA ANTIBODY, IGG (04/19/2024 8:19 EDT) dsDNA Ab, IgG <22.0 <27.0 IU/mL 2024 11:50 EDT [facility] Comment: Negative: <27.0 IU/mL Indeterminate: 27.0 - 35.0 IU/mL Positive: >35.0 IU/mL Results were obtained with [facility] OKCDA Flash dsDNA chemiluminescent immunoassay. Values obtained with different manufacturers' assay methods may not be used interchangeably. Blood VENOUS BLOOD / Unknown Venipuncture / Unknown 04/19/2024 8:19 EDT 04/19/2024 8:35 EDT Shanae Osei MD IMMUNOLOGY AND SERO LOGY ORDERABLES Performing Organization Address [facility] de Phone Number [facility] [address] [place] [phone] * HIV 1/2 ANTIGEN AND ANTIBODY, 4TH GENERATION (04/19/2024 8:19 EDT) HIV 1 and 2 Antibody/p24 Antigen, 4th Generation Negative Negative 04/19/2024 11:28 EDT [facility] Comment:If acute HIV-1 infec tion is suspected in a high risk patient, submit plasma specimen for HIV-1 RNA quantitation test. Blood VENOUS BLOOD / Unknown Venipuncture / Unknown 04/19/2024 8:19 EDT 04/19/2024 8:35 EDT Narrative [facility] - 04/19/2024 11:28 EDT Fourth Generation assay performed on the [employer] XPT. Shanae Osei MD IMMUNOLOGY AND SERO LOGY ORDERABLES Performing Organization Address [facility]/ZIP Co de Phone Number [facility] [address] [place] [phone] * ANTI NUCLEAR AB (EMIR), IFA (04/19/2024 8:19 EDT) [facility] EMIR Interpretation Negative Negative 2023 13:44 EDT [facility] Comment:No titer performed, EMIR Screen is negative. Blood VENOUS BLOOD / Unknown Venipuncture / Unknown 04/19/2024 8:19 EDT 04/19/2024 8:35 EDT Narrative [facility] - 04/20/2024 13:44 EDT Results were obtained with the freshbag NOVA Lite HEp-2 EMIR Kit by indirect immunofluorescence. Shanae Osei MD IMMUNOLOGY AND SERO LOGY ORDERABLES Performing Organization Address [facility] Co de Phone Number [facility] [address] [place] [phone] * (ABNORMAL) COMPLETE BLOOD COUNT (04/19/2024 8:19 EDT) [facility] WBC 10.34 4.00 - 10.40 K/cmm 04/19/2024 8:45 [facility] RBC 4.38 4.36 - 5.78 M/cmm 04/19/2024 8:45 [facility] Hemoglobin 12.9(L) 13.8 - 17.3 g/dL 04/19/2024 8:45 [facility] HCT 36.8(L) 39.5 - 50.2 % 04/19/2024 8:45 [facility] MCV 84 81 - 95 fL 04/19/2024 8:45 [facility] MCH 29.5 27.6 - 33.0 pg 04/19/2024 8:45 [facility] MCHC 35.1 32.8 - 36.4 g/dL 04/19/2024 8:45 [facility] RDW-CV 13.0 <14.2 % 04/19/2024 8:45 T [facility] RDW-SD 39.8 <46.0 fl 04/19/2024 8:45 T [facility] PLT 276 141 - 377 K/cmm 04/19/2024 8:45 T [facility] MPV 10.2 9.5 - 12.7 fL 04/19/2024 8:45 [facility] Blood VENOUS BLOOD / Unknown Venipuncture / Unknown 04/19/2024 8:19 EDT 04/19/2024 8:27 EDT Greg Miranda MD HEMATOLOGY & PF 4 ORDERABLES [facility] [address] [phone] * (ABNORMAL) COMPREHENSIVE METABOLIC PANEL (CMP) (04/19/2024 8:19 EDT) Sodium 138 136 - 145 mmol/L 04/19/2024 9:06 [facility] Potassium 4.0 3.5 - 5.0 mmol/L 04/19/2024 9:06 [facility] Chloride 103 96 - 110 mmol/L 04/19/2024 9:06 [facility] CO2 Total 21(L) 22 - 32 mmol/L 04/19/2024 9:06 [facility] Glucose 121(H) 70 - 99 mg/dl 04/19/2024 9:06 [facility] BUN 14 10 - 26 mg/dL 04/19/2024 9:06 [facility] Creatinine 0.89 0.66 - 1.25 mg/dL 04/19/2024 9:06 [facility] eGFR 109 >60 mL/min/1.7 3m2 04/19/2024 9:06 [facility] Total Protein 6.0(L) 6.3 - 8.2 g/dL 04/19/2024 9:06 [facility] Albumin 3.5 3.4 - 4.9 g/dL 04/19/2024 9:06 [facility] Alkaline Phosphatase 59 38 - 126 U/L 04/19/2024 9:06 [facility] AST 33 15 - 46 U/L 04/19/2024 9:06 [facility] ALT 74(H) <50 U/L 04/19/2024 9:06 [facility] Bilirubin, Total 0.7 <1.4 mg/dL 04/19/20 9:06 [facility] Calcium 8.7 8.5 - 10.5 mg/dL 04/19/2024 9:06 [facility] Albumin/Globulin Ratio 1.4 1.0 - 2.5 04/19/2024 9:06 [facility] Anion Gap 14 5 - 14 mmol/L 04/19/2024 9:06 [facility] Blood VENOUS BLOOD / Unknown Venipuncture / Unknown 04/19/2024 8:19 EDT 04/19/2024 8:35 EDT Greg Miranda MD CHEMISTRY & BLO OD GAS ORDERABLES [facility] [address] [place] [address] * XR CHEST PORTABLE 1 VIEW (04/18/2024 22:05 EDT) Anatomical Region Laterality Modality Computed Radiogr aphy 04/19/2024 8:08 EDT Impressions 04/19/2024 8:08 EDT Enlarged cardiomediastinal silhouette, otherwise no acute abnormality identified. I have personally reviewed the images and the above interpretation and agree with the findings. [id number] Narrative 04/19/2024 8:08 EDT XR CHEST PORTABLE 1 VIEW ??04/18/2024 10:05 PM Clinical History/comments: cardiac tamponade; Comparison: None. Technique: Single portable AP view of the chest. Findings: Lines/tubes/devices: None. Lungs: Thin bibasilar linear atelectasis. No consolidation. Pleura: No visible abnormality. Cardiac and mediastinal contours: Enlarged cardiomediastinal silhouette. Soft tissues and extrathoracic findings: No significant finding. Bones: No discrete abnormality. Resulting Agency Comment [id number] Procedure Note Elier Cardoza MD - 04/19/2024 [...] the above interpretation andagree with the findings. [id number] Greg Miranda MD IMG DIAGNOSTIC IMAGING ORDERABLES * EKG 12-LEAD (04/18/2024 21:10 EDT) 04/18/2024 21:1 0 EDT Narrative [facility] - 04/20/2024 8:57 EDT ? The ? Test Date: ?2024-04-18 Pat Name: ? PRAFUL PEREZ ?Department: ?? [facility] [address] ? Room: ? [id number] Gender: ? Male ? Demolition Specialist: ?? : ?1980 ? Requested By: ADIIT CARREON Order Number: [id number] ? Lidia WILKES: ?? MIREYA ZUNIGA MD ? Measurements Intervals ?[place] ? Rate: ? 93 ? P: ?10 RI: ? 129 ?QRS: ?41 QRSD: ? 96 [...] Note Mireya Zuniga MD - 04/20/2024 The Test Date: 2024-04-18 Pat Name: PRAFUL PEREZ Department: [place] [address] Room: [facility] Gender: Male Demolition Specialist: : 1980 Requested By: ADITI CARREON Order Number: [id number] Reading MD: MIREYA ZUNIGA MD Measurements Intervals [place] Rate: 93 P: 10 RI: 129 QRS: 41 QRSD: 96 T: 30 QT: 336 QTc: 419 Interpretive Statements SINUS RHYTHM Diffuse ST elevation consistent with pericarditis. No previous ECG available for comparison I reviewed the tracing and have either agreed or edited the findings inthis report. Electronically Signed On 04-20-2024 08:57:39 EDT by MIREYA SHERMAN. Greg Miranda MD CARDIAC ECG ORD ERABLES Performing Organization Address City/[facility]/ZIP Co de Phone Number [facility] E[facility] * (ABNORMAL) NT PRO BNP (04/18/2024 21:10 EDT) [facility] NT-pro BNP 162(H) <125 pg/mL 04/18/2024 22:29 EDT [facility] Comment: In the acute setting NT-proBNP values <300 pg/mL have a 98% NPV for excluding acute heart failure. In outpatient populations, NT-proBNP values <125 have a 99% NPV for excluding heart failure. Blood VENOUS BLOOD / Unknown Venipuncture / Unknown 04/18/2024 21:10 EDT 04/18/2024 21:15 EDT Greg Miranda MD CHEMISTRY & BLO OD GAS ORDERABLES Performing Organization Address City/[facility]/ZIP Co de Phone Number [facility] [address] [place] [address] * (ABNORMAL) COMPLETE BLOOD COUNT AND DIFFERENTIAL (04/18/2024 21:10 EDT) [facility] WBC 12.48(H) 4.00 - 10.40 K/cmm 04/18/2024 21:30 [facility] RBC 4.79 4.36 - 5.78 M/cmm 04/18/2024 21:30 [facility] Hemoglobin 14.1 13.8 - 17.3 g/dL 04/18/2024 21:30 [facility] HCT 41.2 39.5 - 50.2 % 04/18/2024 21:30 [facility] MCV 86 81 - 95 fL 04/18/2024 21:30 [facility] MCH 29.4 27.6 - 33.0 pg 04/18/2024 21:30 [facility] MCHC 34.2 32.8 - 36.4 g/dL 04/18/2024 21:30 [facility] RDW-CV 13.1 <14.2 % 04/18/2024 21:30 [facility] RDW-SD 40.7 <46.0 fl 04/18/2024 21:30 [facility] PLT 320 141 - 377 K/cmm 04/18/2024 21:30 [facility] MPV 10.1 9.5 - 12.7 fL 04/18/2024 21:30 [facility] % Neutrophils 71.1 % 04/18/2024 21:30 [facility] % Lymphocytes 15.6 % 04/18/2024 21:30 [facility] % Monocytes 12.2 % 04/18/2024 21:30 [facility] % Eosinophils 0.4 % 04/18/2024 21:30 [facility] % Basophils 0.2 % 04/18/2024 21:30 [facility] % Immature Grans 0.5 % 04/18/20 21:30 [facility] Absolute Neutrophils 8.87(H) 2.20 - 8.85 K/cmm 04/18/2024 21:30 [facility] Absolute Lymphocytes 1.95 1.09 - 3.30 K/cmm 04/18/2024 21:30 EDT [facility] Absolute Monocytes 1.52(H) 0.10 - 0.80 K/cmm 04/18/2024 21:30 EDT [facility] Absolute Eosinophils 0.05 0.03 - 0.61 K/cmm 04/18/2024 21:30 EDT [facility] ABS Basophils 0.03 0.01 - 0.11 K/cm 04/18/2024 21:30 EDT [facility] Absolute Immature Grans 0.06 0.00 - 0.06 K/cmm 04/18/2024 21:30 T [facility] Type of Differential: Auto 04/18/2024 21:30 [facility] Blood VENOUS BLOOD / Unknown Venipuncture / Unknown 04/18/2024 21:10 EDT 04/18/2024 21:17 EDT Greg Miranda MD PACKAGES & DNA PROBE ORDERABLES [facility] [address] [place] [address] * (ABNORMAL) COMPREHENSIVE METABOLIC PANEL (CMP) (04/18/2024 21:10 EDT) Sodium 138 136 - 145 mmol/L 04/18/2024 21:35 [facility] Potassium 3.9 3.5 - 5.0 mmol/L 04/18/2024 21:35 [facility] Chloride 101 96 - 110 mmol/L 04/18/2024 21:35 [facility] CO2 Total 26 22 - 32 mmol/L 04/18/2024 21:35 [facility] Glucose 121(H) 70 - 99 mg/dl 04/18/2024 21:35 [facility] BUN 14 10 - 26 mg/dL 04/18/2024 21:35 [facility] Creatinine 1.04 0.66 - 1.25 mg/dL 04/18/2024 21:35 [facility] eGFR 91 >60 mL/min/1.7 3m2 04/18/2024 21:35 [facility] Total Protein 7.1 6.3 - 8.2 g/dL 04/18/2024 21:35 [facility] Albumin 4.1 3.4 - 4.9 g/dL 04/18/2024 21:35 [facility] Alkaline Phosphatase 60 38 - 126 U/L 04/18/2024 21:35 [facility] AST 42 15 - 46 U/L 04/18/2024 21:35 [facility] ALT 89(H) <50 U/L 04/18/2024 21:35 [facility] Bilirubin, Total 0.7 <1.4 mg/dL 04/18/20 21:35 [facility] Calcium 9.0 8.5 - 10.5 mg/dL 04/18/2024 21:35 [facility] Albumin/Globulin Ratio 1.4 1.0 - 2.5 04/18/2024 21:35 [facility] Anion Gap 11 5 - 14 mmol/L 04/18/2024 21:35 [facility] Blood VENOUS BLOOD / Unknown Venipuncture / Unknown 04/18/2024 21:10 EDT 04/18/2024 21:15 EDT Greg Miranda MD CHEMISTRY & BLO OD GAS ORDERABLES [facility] [address], [place] [id number] * (ABNORMAL) C REACTIVE PROTEIN (04/18/2024 21:10 EDT) C-Reactive Protein 309.3(H) <10.0 mg/L 04/18/2024 22:27 [facility] Blood VENOUS BLOOD / Unknown Venipuncture / Unknown 04/18/2024 21:10 EDT 04/18/2024 21:15 EDT Greg Miranda MD CHEMISTRY & BLO OD GAS ORDERABLES Performing Organization Address City/[facility]/ZIP Co de Phone Number [facility] [address], [place] [phone] * LACTIC ACID (04/18/2024 21:10 EDT) Lactic Acid 1.4 <=2.0 mmol/L 04/18/2024 21:35 EDT [facility] Blood VENOUS BLOOD / Unknown Venipuncture / Unknown 04/18/2024 21:10 EDT 04/18/2024 21:15 EDT Greg Miranda MD CHEMISTRY & BLO OD GAS ORDERABLES Performing Organization Address City/[facility]/ZIP Co de Phone Number [facility] [address], [place] [phone] documented in this encounter Visit Diagnoses Diagnosis [...] or rash, Routine fentaNYL citrate (PF) injection PRN, Starting on Tue04/19/24 at 1056, Until Tue04/19/24 at 1204, Routine, Intraprocedure Given 04/19/2024 11:47 EDT 50 mc g Given 04/19/2024 11:10 EDT 50 mcg Given 04/19/2024 10:56 EDT 50 mcg midazolam (PF) (VERSED) injection PRN, Starting on Tue04/19/24 at 1056, Until Tue04/19/24 at 1204, Routine, Intraprocedure Given 04/19/2024 11:40 EDT 1 mg Given 04/19/2024 11:10 EDT 1 mg Given 04/19/2024 10:56 EDT 1 mg predniSONE (DELTASONE) tablet 50 mg 50 [...] Chandler RN)1550 (Not Given - Provider: Stan Barbour RN - Reason: Patient/family refused)1800 (Canceled Entry - Provider: Batch Job User Admin - Comment: Automatically canceled at discontinue of medication order) colchicine (COLCRYS) tablet 0.6 mg 0.6 mg, oral, 2 TIMES DAILY, First dose on Tue04/18/24 at 2200, Until Discontinued, Routine 221 (Given - Provider: Marlon Sebastian RN) 0838 (Given - Provider: Beverly Murphy, ARIEL)1032 (DEC Hold - Provider: Automatic Transfer Provider Hn - Reason: Patient off unit)1256 (MAR Unhold - Provider: Automatic Transfer Provider Hn)211 (Given - Provider: Kayy Chandler RN) 0849 (Given - Provider: Stan Barbour RN) fentaNYL citrate (PF) injection 25 mcg (COMPLETED) 25 mcg, intravenous, NOW X1, 1 dose, On Tue04/19/24 at 1430, STAT 1427 (Given - Provider: Beverly Murphy, ARIEL) HYDROmorphone (DILAUDID) tablet 1 mg (COMPLETED) 1 mg, oral, NOW X1, 1 dose, On Tue04/19/24 at 1645, Routine 1646 (Given - Provider: Beverly Murphy RN) HYDROmorphone (DILAUDID) tablet 2 mg (COMPLETED) 2 mg, oral, NOW X1, 1 dose, On Tue04/19/24 at 1945, Routine 1951 (Given - Provider: Kayy Chandler RN) HYDROmorphone (PF) (DILAUDID) 0.5 mg/0.5 mL syringe 0.5 mg (COMPLETED) 0.5 mg, intravenous, NOW X1, 1 dose, On Tue04/19/24 at 2100, Routine 2116 (Given - Provider: Kayy Chandler RN) ibuprofen (MOTRIN) tablet 800 mg (CANCELED) 800 mg, oral, 3 TIMES DAILY, First dose on Tue04/18/24 at 2200, Until Discontinued, Routine 2218 (Given - Provider: Lakshmi Adorno RN) ketOROLAC (TORADOL) injection 15 mg (COMPLETED) 15 mg, intravenous, NOW X1, 1 dose, On Gita 04/19/24 at 1745, Routine 174 (Given - Provider: Beverly Murphy RN) ketOROLAC (TORADOL) injection 30 mg (COMPLETED) 30 mg, intravenous, NOW X1, 1 dose, On Gita 04/19/24 at 2100, Routine 2116 (Given - Provider: Kayy Chandler RN) predniSONE (DELTASONE) tablet 50 mg 50 mg, oral, DAILY, First dose on Gita 04/19/24 at 0900, Until Discontinued, Routine 0838 (Given - Provider: Beverly Murphy RN)1032 (DEC Hold - Provider: Automatic Transfer Provider Hn - Reason: Patient off unit)1256 (DEC Unhold - Provider: Automatic Transfer Provider Hn) 0849 (Given - Provider: Stan Barbour RN) ramelteon (ROZEREM) tablet 8 mg 8 mg, oral, AT BEDTIME, First dose on Gita 04/19/24 at 2100, Until Discontinued, Routine 2116 (Given - Provider: Kayy Chandler RN) PRN Medication Order 04/18/2024 04/19/2024 04/20/2024 acetaminophen (TYLENOL) tablet 1,000 mg (CANCELED) 1,000 mg, oral, EVERY 6 HOURS PRN, Starting on Gita 04/19/24 at 0032, Until Gita 04/19/24 at 2044, Pain, Fever, Routine 0037 (Given - Provider: Marlon Sebastian RN)0627 (Given - Provider: Marlon Sebastian RN)1032 (DEC [...] Provider Hn - Reason: Patient off unit)1256 ([facility] Unhold - Provider: Automatic Transfer Provider Hn) midazolam (PF) (VERSED) injection (CANCELED) PRN, Starting on Gita 04/19/24 at 1056, Until Gita 04/19/24 at 1204, Routine, Intraprocedure 1056 (Given - Provider: Rylee Sanches, RN)1110 (Given - Provider: Rylee Sanches, RN)1140 (Given - Provider: Rylee Sanches RN) polyethylene glycol 3350 (MIRALAX) packet 17 g 17 g, oral, DAILY PRN, Starting on Tue04/18/24 at 2057, Until Tue04/20/24 at 1900, Constipation, Routine 1032 ([facility] Hold - Provider: Automatic Transfer Provider Hn - Reason: Patient off unit)1256 ([facility] Unhold - Provider: Automatic Transfer Provider Hn) senna (SENOKOT) tablet 2 Tablet 2 Tablet, oral, AT BEDTIME PRN, Starting on Tue04/18/24 at 2057, Until Tue04/20/24 at 1900, Constipation, Routine 1032 (DEC Hold - Provider: Automatic Transfer Provider Hn - Reason: Patient off unit)1256 ([facility] Unhold - Provider: Automatic Transfer Provider Hn) documented in this encounter Orders Medications Ordered That Fabrice ht Not Have Been Administered Count Last Ordered Date First Ordered Date acetaminophen (TYLENOL) tablet 1,000 mg 2 0 04/19/2024 diphenhydrAMINE (BENADRYL) capsule 25 mg 1 04/19/2024 fentaNYL citrate (PF) 50 mcg/mL injection 2 04/19/2024 fentaNYL citrate (PF) injection 25 mcg 1 HYDROmorphone (DILAUDID) tablet 1 mg 3 04/09 HYDROmorphone (DILAUDID) tablet 2 mg 1 04/09 HYDROmorphone (PF) (DILAUDID ) 0.5 mg/0.5 mL syringe 0.5 mg 1 04/19/2024 ketOROLAC (TORADOL) injection 15 mg 1 04/19 ketOROLAC (TORADOL) injection 30 mg 1 04/19 lidocaine (PF) 100 mg/5 mL (2 %) syringe 1 04/19/2024 lidocaine (PF) 20 mg/mL (2 %) injection 1 0 04/19/2024 midazolam (PF) (VERSED) 1 mg/mL injection 2 04/19/2024 predniSONE (DELTASONE) tablet 50 mg 1 04/19 ramelteon (ROZEREM) tablet 8 mg 1 colchicine (COLCRYS) tablet 0.6 mg 1 2023 ibuprofen (MOTRIN) tablet 800 mg 1 04/18/20 24 lidocaine (PF) 10 mg/mL (1 % ) injection 2 mg 1 04/18/2024 polyethylene glycol 3350 (GA RALAX) packet 17 g 1 04/18/2024 senna [...] Date First Orde red Date 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
[2024-07-01 23:11] LABS: ALT 37 U/L (16-63); AST 18 U/L (15-37); Alkaline Phosphatase 63 U/L (46-116); BUN 16 mg/dL (7-18); Bilirubin, Total 0.62 mg/dL (0.2-1.0); CREATININE 1.3 mg/dL (0.70-1.30); Calcium 8.8 mg/dL (8.5-10.1); Chloride 102 mmol/L (98-107); Estimated GFR 69.47 (mL/min/1.73m2); Glucose 147 mg/dL (74-106); Magnesium 2.1 mg/dL (1.8-2.4); Potassium 3.1 mmol/L (3.5-5.1); Sodium 138 mmol/L (136-145); Total Protein 7.1 g/dL (6.4-8.2); Troponin I 5 ng/L (<or=76)
[2024-07-02] VITALS (13 sets, daily range): BP systolic 138–154; BP diastolic 81–107; PULSE 82–94; RESP 13–21; O2SAT 94
[2024-07-02 00:56] LABS: Troponin I 5 ng/L (<or=76)
--- NOTE | 2024-07-02 01:43 | DI.VRAD_ITS ---
Addendum created by Sameer Tam MD on 07/02/2024 2:49:44 AM EDT: The nodule visualized and marked on the films is located at the apex of the left ventricle. Dictation of the CT evaluation of this finding will follow. Initial report created on 07/02/2024 1:42:55 AM EDT: PROCEDURE INFORMATION: Exam: XR Chest Exam date and time: 07/02/2024 12:22 AM Age: 44 years old Clinical indication: Pain; Left-sided; Patient HX: Cp TECHNIQUE: Imaging protocol: Radiologic exam of the chest. Views: 2 views. COMPARISON: CR XR PORTABLE CHEST AP 04/17/2024 3:30 PM FINDINGS: Lungs: Mild atelectatic changes left lower lobe of the lung. Nodular like density present at the left apex of the lung and visualized on the lateral image measuring approximately 2 x 2.5 x 1[address] for further evaluation if clinically warranted. Pleural spaces: There is no evidence of pneumothorax. There are no pleural effusions present. Heart/Mediastinum: There is mild cardiomegaly. The mediastinal contour is normal. Bones/joints: The skeletal structures and soft tissues show no evidence of fracture or other acute processes. Soft tissues: The soft tissues of the extrathoracic region are unremarkable. IMPRESSION: 1. Mild atelectatic changes left lower lobe of the lung. 2. Nodular like density present at the left apex of the lung and visualized on the lateral image measuring approximately 2 x 2.5 x 1.[address] for further evaluation if clinically warranted. Dictated and Authenticated by: Sameer Tam MD. Ordering:JOSE Rose MD
--- NOTE | 2024-07-02 01:45 | DI.CT_ITS ---
Exam(s) CT CHEST W EXAM: CT CHEST W CLINICAL HISTORY: L upper CP with L apical nodular density on CXR TECHNIQUE: Imaging Protocol: Axial computed tomography images with coronal and sagittal reformatted images were created and reviewed CONTRAST MATERIAL: Intravenous: Omnipaque 350Contrast volume:70 mL. COMPARISON: CT CT CHEST WO from 05/17/2023 CR,XR XR CHEST 2V PA LATERAL from 07/02/2024 FINDINGS: Tracheobronchial tree: Patent where visualized. There is no bronchiectasis. Pulmonary parenchyma: There is a 5 mm noncalcified nodule in the lateral aspect of the left lower lob e (series 2, image 234). No pulmonary infiltrates are seen. No nodules are seen in the lungs in the apices. There is atelectasis or scarring seen in the left lingula. Mediastinum and Bri: No dominant adenopathy or fluid collection. The esophagus is unremarkable. Thyroid gland: Unremarkable. Pleura: No effusion or pneumothorax. Heart: The heart is not dilated. No coronary artery calcifications are seen. There is mild pericardia l thickening or effusion. Aorta: Thoracic aorta non-dilated. No evidence of dissection. Pulmonary arteries: Pulmonary arteries are insufficiently opacified for evaluation of pulmonary embol i. Upper abdomen: There is diffuse decreased attenuation of the liver consistent with fatty infiltratio n. Lymph nodes: Within normal limits. Bones: Within normal limits for the patient's age. Tubes, Catheters, and Lines: Soft tissues: Unremarkable. IMPRESSION: 1. The area of concern on the chest x-ray may represent an area of atelectasis or scarring in the lef t lingula. 2. 5 mm left lower lobe pulmonary nodule. Solid nodules smaller than 6 mm do not require routine follow-up in all patients with high clinical r isk; however, some nodules smaller than 6 mm with suspicious morphology, upper lobe location, or both may warrant follow-up at 12 months (grade 2A; weak recommendation, high-quality evidence). (Derrick et al., 2017) Single solid noncalcified nodules. ???Solid nodules smaller than 6 mm (those 5 mm or smaller) do not require routine follow-up in patients at low risk (grade 1C; strong recommendation, low- or very-low- quality evidence). (Derrick et al., 2017) 3. Mild pericardial thickening or effusion. RADIATION DOSE DELIVERED: 280.61mGy.cm Total DLP DATA REPOSITORY: All CT scans at this facility are submitted to the National Radiology Data Registry (NRDR) Dose Index Registry (DIR) with the [employer] (ACR). RADIATION OPTIMIZATION: All CT scans at this facility use at least one of these dose optimization te chniques: automated exposure control; mA and/or kV adjustment per patient size (includes targeted exa ms where dose is matched to clinical indication); or iterative reconstruction.
[2024-07-02] MEDS: Potassium Chloride 20 MEQ TABCR 40 MEQ PO (01:59)
[2024-07-02] MEDS: Omnipaque 350 MG/ML 100 ML BTL IJ (02:06)
[2024-07-02] MEDS: Normal Saline - Diluent 50 ML VIAL IJ (02:07)
[2024-07-02] MEDS: Normal Saline Flush 10 ML SYR IVP (02:07)
--- NOTE | 2024-07-02 02:57 | DI.VRAD_ITS ---
PROCEDURE INFORMATION: Exam: CT Chest With Contrast; Diagnostic Exam date and time: 07/02/2024 2:03 AM Age: 44 years old Clinical indication: Pain; Left-sided; Patient HX: L upper cp with L apical nodular density on cxr TECHNIQUE: Imaging protocol: Diagnostic computed tomography of the chest with contrast. 3D rendering (Not supervised by radiologist): MIP and/or 3D reconstructed images were created by the technologist. Radiation optimization: All CT scans at this facility use at least one of these dose optimization techniques: automated exposure control; mA and/or kV adjustment per patient size (includes targeted exams where dose is matched to clinical indication); or iterative reconstruction. Contrast material: OMNIPAQUE 350; Contrast volume: 70 ml; Contrast route: INTRAVENOUS (IV); COMPARISON: CT CHEST WO 05/17/2023 1:48 AM FINDINGS: Thyroid: The thyroid gland is normal. Lungs: The nodular density present on the patient's chest x-ray is visualized on the patient's CT on image 244 series 3 and image 25 series 6. This lesion appears to represent an area of focal pleural-parenchymal scarring adjacent to the pericardial fat pad. No further follow-up indicated. No consolidation. No masses. Pleural spaces: There is no evidence of pneumothorax. There are no pleural effusions present. Heart: There is a moderate size pericardial effusion present. No evidence of pericardial tamponade. Consider pericarditis. Coronary arteries: There is moderate atherosclerotic calcification of the coronary arteries. Lymph nodes: There is no evidence of lymphadenopathy. Vasculature: The pulmonary arteries are not enlarged. There is no evidence of filling defects within the pulmonary arterial circulation to suggest pulmonary embolism. Bones/joints: The skeletal structures and soft tissues show no evidence of fracture or other acute processes. Soft tissues: The soft tissues of the extrathoracic region are unremarkable. The upper abdominal viscera are unremarkable. IMPRESSION: 1. The nodular density present on the patient's chest x-ray is visualized on the patient's CT on image 244 series 3 and image 25 series 6. This lesion appears to represent an area of focal pleural-parenchymal scarring adjacent to the pericardial fat pad. No further follow-up indicated. 2. There is a moderate size pericardial effusion present. No evidence of pericardial tamponade. Consider pericarditis. 3. There is no evidence of filling defects within the pulmonary arterial circulation to suggest pulmonary embolism. Dictated and Authenticated by: Sameer Tam MD. Ordering:JOSE Rose MD
[2024-07-02] MEDS: Ketorolac 15 MG/ML VIAL IVP (03:14)
== END 2024-07-02 03:15 | disposition home or self-care (01) ==
PROVIDERS: Emergency Provider Emergency Medicine; PCP Nurse Practitioner Family
DX: R91.1 Solitary pulmonary nodule
CPT/HCPCS: 80053; 93005; 96374; 99285; 71046; 71260; 83735; 84484; 85025; 93010; 99284; J1885; J3490

== ENCOUNTER 2024-07-13 03:24 | Outpatient (CLI) | payer BC, SELFPAY ==
[2024-07-13] MEDS: Inhaler, Assist Device 1 EACH MC (11:48)
[2024-07-13] MEDS: Levalbuterol HFA 15 GM INH 4 PUFF IH (11:48)
--- NOTE | 2024-07-13 11:51 | W.PFT ---
Date of service: 07/13/24 Time of Service: 10:08 Pulmonary Function Test Result Indications: Dyspnea Interpretation Spirometry: There is very mild airflow limitation. There is significant bronchodilator response. Lung Volumes: There is hyperinflation and air trapping Diffusion Capacity: Normal diffusion Airway Pressure: Increased airways resistance Impression Mild airflow obstruction with a bronchodilator response and air trapping. This could represent asthma, COPD (chronic bronchitis) or asthma-COPD overlap syndrome Clinical Correlation therefore is recommended.
== END 2024-07-13 03:25 | disposition home or self-care (01) ==
LOC: RT 03:24
PROVIDERS: PCP Nurse Practitioner Family; Visit Provider Nurse Practitioner Family
DX: R06.00 Dyspnea, unspecified (principal)
CPT/HCPCS: 94060; 94726; 94729

== ENCOUNTER 2024-07-21 11:07 | Outpatient (CLI) | payer BC, SELFPAY ==
--- NOTE | 2024-07-21 11:15 | DI.RAD_ITS ---
Exam(s) XR CHEST 2V PA LATERAL EXAM: XR CHEST 2V PA LATERAL CLINICAL HISTORY: evaluate pathology. TECHNIQUE: 2D digital imaging was performed. COMPARISON: CR XR PORTABLE CHEST AP from 04/17/2024 CR,XR XR CHEST 2V PA LATERAL from 07/02/2024 FINDINGS: 2 views: Heart size is normal. The mediastinum is not widened. Lungs are clear. No infiltrates nor pleural effusions. Previously described density adjacent to the left heart border is no longer seen. IMPRESSION: No acute pulmonary findings. DATA REPOSITORY: RADIATION DOSE DELIVERED:
--- NOTE | 2024-07-21 12:58 | DI.VRAD_ITS ---
PROCEDURE INFORMATION: Exam: XR Chest Exam date and time: 07/21/2024 11:19 AM Age: 44 years old Clinical indication: Cough TECHNIQUE: Imaging protocol: Radiologic exam of the chest. Views: 2 views. COMPARISON: CT CHEST W 07/02/2024 2:03 AM FINDINGS: Lungs: Unremarkable. No consolidation. Pleural spaces: Unremarkable. No pleural effusion. No pneumothorax. Heart/Mediastinum: Unremarkable. No cardiomegaly. Bones/joints: Unremarkable. IMPRESSION: No acute findings. Dictated and Authenticated by: Sunita Colindres MD. Ordering:DAYANARA Pickens MD
== END 2024-07-21 11:27 ==
PROVIDERS: PCP Nurse Practitioner Family; Visit Provider Nurse Practitioner Family
DX: R05.9 Cough, unspecified (principal)
CPT/HCPCS: 71046

== ENCOUNTER 2024-09-20 18:00 | Emergency (ER) | payer BC, SELFPAY ==
[2024-09-20] VITALS (26 sets, daily range): BP systolic 142–163; BP diastolic 82–97; PULSE 100–120; RESP 11–30; TEMP 36; O2SAT 94–99
--- NOTE | 2024-09-20 18:00 | RT.EKG_ITS ---
APPROVED REPORT Exam: Resting ECG Reason for Exam: Patient Location: E HR:113 bpm ECG Measurements Heart Rate 113 AXIS VT 129 P 25 QRSd 96 QRS 54 QT 322 T 71 QTc 443 Conclusion Sinus tachycardia...rate> 99 ST elevation suggests acute pericarditis...ST >0.10mV, ant/lat/inf
--- NOTE | 2024-09-20 18:00 | DI.CT_ITS ---
Exam(s) CT CHEST PE CTA EXAM: CT CHEST PE CTA CLINICAL HISTORY: pleuritic chest pain, recent pericardial effusion. TECHNIQUE: Imaging Protocol: Axial CT angiography was performed with multi-slice acquisition and mu lti-planar reconstructions as well as axial, coronal and sagittal MIP reconstructions. Computer aided detection (CAD) was utilized. CONTRAST MATERIAL: Intravenous: Omnipaque 350 Contrast volume:100 ml COMPARISON: CT CT CHEST W from 07/02/2024 CR,XR XR CHEST 2V PA LATERAL from 07/02/2024 CR,XR XR CHEST 2V PA LATERAL from 07/21/2024 FINDINGS: Pulmonary Arteries: No evidence of filling defect to suggest pulmonary emboli. Mediastinum and Bri: No dominant adenopathy or fluid collection. Pulmonary parenchyma: No consolidation or dominant measurable mass. Stable 5 millimeter pleural-bas ed nodule at the left lateral lower lobe. Pleura: No effusion or pneumothorax. Heart: There is a pericardial effusion measuring maximally 10 millimeters in thickness anterior to th e right ventricle. The heart is not dilated. No coronary artery calcifications are seen. Aorta: Thoracic aorta non-dilated. No dissection. No visible atherosclerotic changes. Upper abdomen: No acute findings. Hepatic steatosis. Bones: Unremarkable for age. Tubes, Catheters, and Lines: None Soft tissues: Unremarkable. IMPRESSION: No evidence of pulmonary embolism. Small pericardial effusion. Clear lungs. Findings called to Dr. Gu of the emergency department. RADIATION DOSE DELIVERED: Total DLP DATA REPOSITORY: All CT scans at this facility are submitted to the National Radiology Data Registry (NRDR) Dose Index Registry (DIR) with the [employer] (A[employer]). RADIATION OPTIMIZATION: All CT scans at this facility use at least one of these dose optimization te chniques: automated exposure control; mA and/or kV adjustment per patient size (includes targeted exa ms where dose is matched to clinical indication); or iterative reconstruction.
--- NOTE | 2024-09-20 18:09 | ED.GENADUL_ITS ---
Discharge Plan Disposition Patient Disposition: Home Condition: Stable Discharge Details Clinical Impression: Pericarditis Primary Care Provider: GARFIELD TORRES ED Provider: Greg Gu Home Meds and New Rx's Prescriptions: Continued cetirizine 10 mg tablet 10 mg PO DAILY PRN albuterol sulfate 90 mcg/actuation HFA aerosol inhaler 2 puff inhalation Q6H PRN (Reason: shortness of breath or wheezing) Qty: 8.5 0RF polyethylene glycol 3350 [Miralax] 17 gram/dose powder 17 g PO DAILY colchicine 0.6 mg tablet 0.6 mg PO BID Patient Comments: TAKE 1 TABLET BY MOUTH TWICE DAILY DIRECTED FOR 90 DAYS Discharge Instructions Additional Instructions: Your lab work and CAT scan did not show any significant concerning findings. Your pericardial effusion has decreased in size since last time he had a CAT scan. You can take 600 mg 3 times a day of ibuprofen for 2 weeks then decrease to 400 mg 3x a day for a week and then 200 mg 3x a day for a week. Follow-up with your medical supply technician call their office to arrange for follow-up appointment If you feel more ill, have severe worsening pain or difficulty breathing return to the emergency department for reevaluation HPI General Mode of arrival: ambulatory . Date/Time Provider Initiated Documentation: 09/20/24 18:02 . Limitations to Documentation: no limitations . Information obtained by: patient . History of Present Illness 44 year old M presents to the emergency department with the chief complaint of pleuritic anterior chest pain, described as moderate, Quality is described as sharp, and is localized to the chest. Patient reports no radiation. Patient started experiencing this week(s) (1) and it has been constant. No relieving factors improve symptom(s), No exacerbating factors reported . Patient notes no other symptoms., chest pain and shortness of breath; denies fever/chills and nausea/vomiting. Patient did receive the following treatments prior to arrival, none Related Data Home Medications ?Medication ?Instructions ?Recorded ?Confirmed cetirizine 10 mg tablet 10 mg PO DAILY PRN 06/29/23 09/20/24 colchicine 0.6 mg tablet 0.6 mg PO BID 07/01/24 09/20/24 albuterol sulfate 90 mcg/actuation 2 puff inhalation Q6H PRN 07/21/24 09/20/24 aerosol inhaler shortness of breath or wheezing #8.5 grams polyethylene glycol 3350 17 17 g PO DAILY 08/08/24 09/20/24 gram/dose oral powder (Miralax) Previous Rx's ?Medication ?Instructions ?Recorded albuterol sulfate 90 mcg/actuation 2 puff inhalation Q6H PRN 07/21/24 aerosol inhaler shortness of breath or wheezing #8.5 grams Allergies Allergy/AdvReac Type Severity Reaction Status Date / Time Sulfa (Sulfonamide Allergy Severe Hives Verified 09/20/24 18:07 Antibiotics) morphine Allergy Mild Hives Verified 09/20/24 18:07 Penicillins Allergy Hives Verified 09/20/24 18:07 General Stated Complaint: Chest Pain MARCO: 3 Review of Systems All systems reviewed & are unremarkable except as noted in HPI and below Constitutional Constitutional: Denies chills, Denies fever(s) and Denies weakness Cardiovascular Cardiovascular: Reports chest pain and Reports dyspnea Respiratory Respiratory: Denies cough and Reports dyspnea Gastrointestinal Gastrointestinal: Denies abdominal pain, Denies nausea and Denies vomiting Musculoskeletal Musculoskeletal: Denies joint swelling Neurologic Neurologic: Denies weakness Exam Const General: no acute distress Orientation: alert [facility] Head: normal to inspection Ears: external ears normal General nose exam: external nose normal Mouth: moist mucous membranes Eyes General: appearance normal, both eyes and all related structures Neck Neck: normal visual inspection Resp Effort & Inspection: normal respiratory effort and able to speak in complete sentences Auscultation: clear to auscultation bilaterally Cardio Jugular venous pressure: no JVD Rate: regular rate Heart Sounds: no murmurs GI Palpation: soft and nontender Skin General skin exam: no rashes or lesions noted Neuro General: patient alert and patient oriented x3 Extrem General: normal to inspection Psych Mental Status: mental status grossly normal Course Vital Signs Vital signs: Vital Signs Temperature 36 C L 09/20/24 18:04 Pulse 113 H 09/20/24 18:04 Respiratory Rate 18 09/20/24 18:04 Blood Pressure 163/92 H 09/20/24 18:04 Pulse Oximetry 97 09/20/24 18:04 Temperature 36 C L 09/20/24 18:04 Temperature Source Temporal Artery Scan 09/20/24 18:04 Pulse 113 H 09/20/24 18:04 Respiratory Rate 18 09/20/24 18:04 Blood Pressure 163/92 H 09/20/24 18:04 Blood Pressure Position Sitting 09/20/24 18:04 Pulse Oximetry 97 09/20/24 18:04 Oxygen Delivery Method Room Air 09/20/24 18:04 Oxygen Flow Rate 0 09/20/24 18:04 Medical Decision Making 44-year-old male who was been dealing with pericarditis since the summer and is still on colchicine, states he was weaned off prednisone over a week ago by his medical supply technician at [facility] who comes in with 1 week of worsening pleuritic anterior chest pain and shortness of breath. He denies any high fevers, vomiting, diaphoresis, radiation of the pain. Localizes the pain to the anterior chest and says it is a sharp sensation and worse with deep breathing. He is stable on arrival, tachycardic in the 110s and sinus tachycardia. Clear lung sounds, no JVD, no leg swelling or calf tenderness. No abdominal tenderness. I suspect pericarditis, he has had a pericardial effusion in the past so we will proceed with CBC, CMP, troponins and CTA of the chest to evaluate for PE versus pericardial effusion Patient with very small patient with very small pericardial effusion, this is decreased from his moderate effusion and a few months ago. Labs unremarkable including delta troponin. He is hemodynamically stable. He is already on colchicine, advised to either take aspirin or ibuprofen every day. He will follow-up with his medical supply technician that he sees at [facility] and return precautions given Differential Diagnosis Differential Diagnosis: Pericarditis, pericardial effusion, NSTEMI, PE Imaging Data Radiologic Study: Attestation: I personally reviewed and interpreted this imaging study as follows: Imaging: CT Scan Radiologist's impression: Patient Name: Praful Perez Unit #: [id number] Loc: ER Ordering Provider: Greg Gu M.D. Status: [facility] ER Primary Care Provider: GARFIELD TORRES NP Date of Exam: 09/20/24 Sex: M : 1980 Age: 44 Exam(s) a CT:CT chest PE CTA Exam(s) CT CHEST PE CTA EXAM: CT CHEST PE CTA CLINICAL HISTORY: pleuritic chest pain, recent pericardial effusion. TECHNIQUE: Imaging Protocol: Axial CT angiography was performed with multi- slice acquisition and multi-planar reconstructions as well as axial, coronal and sagittal MIP reconstructions. Computer aided detection (CAD) was utilized. CONTRAST MATERIAL: Intravenous: Omnipaque 350 Contrast volume:100 ml COMPARISON: CT CT CHEST W from 07/02/2024 CR,XR XR CHEST 2V PA LATERAL from 07/02/2024 CR,XR XR CHEST 2V PA LATERAL from 07/21/2024 FINDINGS: Pulmonary Arteries: No evidence of filling defect to suggest pulmonary emboli. Mediastinum and Bri: No dominant adenopathy or fluid collection. Pulmonary parenchyma: No consolidation or dominant measurable mass. Stable 5 millimeter pleural-based nodule at the left lateral lower lobe. Pleura: No effusion or pneumothorax. Heart: There is a pericardial effusion measuring maximally 10 millimeters in thickness anterior to the right ventricle. The heart is not dilated. No coronary artery calcifications are seen. Aorta: Thoracic aorta non-dilated. No dissection. No visible atherosclerotic changes. Upper abdomen: No acute findings. Hepatic steatosis. Bones: Unremarkable for age. Tubes, Catheters, and Lines: None Soft tissues: Unremarkable. IMPRESSION: No evidence of pulmonary embolism. Small pericardial effusion. Clear lungs. Lab Data Lab results reviewed: Yes I reviewed the patient's lab results. ECG Data Attestation: I personally reviewed and interpreted this ECG (s) as follows: Prior ECG tracings: available for review Interpretation: sinus tachycardia, rate of 113, pr [address] depressions inferiorly with no st depressions elsewhere. Quality:SDOH Health Related Social Needs: No Data to Display PFSH All Active Problems (Updated 09/20/24 @ 20:08 by Greg Gu MD) Pericarditis (Acute) Adult attention deficit disorder (Acute) Dyslipidemia (Acute) Type 2 diabetes mellitus (Acute) Dyspnea (Acute) Viral pericarditis with pericardial effusion (Acute) Acute atelectasis (Acute) Medical History Pericarditis in diseases classified elsewhere Umbilical hernia Family history of diabetes mellitus Inguinal hernia, left Solitary lung nodule Tongue lump Seasonal allergies Family History Mother Depression Father Diabetes Type 1 Social History Smoking/Tobacco Use Status: Never Smoking risk assessment performed?: Yes Alcohol Intake: never Drug use: Daily Substance use type: marijuana Housing: house Current gender identity: male Do you feel safe at home: Yes Do you feel safe in your relationship?: Yes
[2024-09-20] MEDS: Omnipaque 350 MG/ML 100 ML BTL IJ (18:34)
[2024-09-20] MEDS: Normal Saline - Diluent 50 ML VIAL IJ (18:34)
[2024-09-20 18:35] LABS: Abs Immature Grans 0.04 10^3/uL (0.0-0.06); Absolute Basophil Count 0.04 10^3/uL (0.0-0.2); Absolute Eosinophil Count 0.03 10^3/uL (0.0-0.7); Absolute Lymphocyte Count 1.74 10^3/uL (1.2-3.4); Absolute Monocyte Count 0.85 10^3/uL (0.1-0.8); Absolute Neutrophil Count 7.09 10^3/uL (1.2-6.7); Basophils % 0.4 %; Eosinophils % 0.3 %; HGB 15.8 g/dL (13.5-17.5); Immature Grans % 0.4 %; Lymphocytes % 17.8 %; MCH 30.3 pg (27.0-33.0); MCHC 33.6 % (32.0-36.0); MCV 90 fL (80-95); MPV 10.1 fL (8.0-11.0); Monocytes % 8.7 %; Neutrophils % 72.4 %; Platelet Count 251 10^3/uL (130-400); RBC 5.21 10^6/uL (4.36-5.78); RDW 12.6 % (11.8-14.1); RDW-SD 41.6 fL; WBC 9.79 10^3/uL (4.4-10.8)
[2024-09-20 18:51] LABS: INR 1.1 (0.9-1.1); PTT Activated 33.1 sec (23.6-32.8); Prothrombin Time 10.9 sec (9.1-11.1)
[2024-09-20 19:01] LABS: ALT 54 U/L (16-63); AST 25 U/L (15-37); Albumin 4.1 g/dL (3.4-5.0); Alkaline Phosphatase 67 U/L (46-116); Anion Gap 10.9 mmol/L (3-11); BUN 13 mg/dL (7-18); Bilirubin, Total 0.96 mg/dL (0.2-1.0); CO2 26.1 mmol/L (21.0-32.0); CREATININE 1.4 mg/dL (0.70-1.30); Calcium 8.8 mg/dL (8.5-10.1); Chloride 103 mmol/L (98-107); Estimated GFR 63.56 (mL/min/1.73m2); Glucose 113 mg/dL (74-106); Lipase 31 U/L (<78); Potassium 3.6 mmol/L (3.5-5.1); Sodium 140 mmol/L (136-145); TSH (W/Ref FT4) 2.69 uIU/mL (0.36-3.74); Total Protein 7.6 g/dL (6.4-8.2)
[2024-09-20 19:07] LABS: Troponin I < 4 ng/L (<or=76)
[2024-09-20 19:53] LABS: Troponin I 4 ng/L (<or=76)
[2024-09-20] MEDS: Ibuprofen 600 MG TAB PO (19:57)
== END 2024-09-20 20:16 | disposition home or self-care (01) ==
PROVIDERS: Emergency Provider Emergency Medicine; PCP Nurse Practitioner Family
DX: I31.9 Disease of pericardium, unspecified (principal)
CPT/HCPCS: 36415; 71275; 80053; 83690; 93005; 99285; 83735; 84443; 84484; 85025; 85610; 85730; 93010; 99284; J3490

== ENCOUNTER 2024-09-21 12:20 | Outpatient (CLI) | payer BC, SELFPAY ==
--- NOTE | 2024-09-21 12:15 | RT.EKG_ITS ---
APPROVED REPORT Exam: Resting ECG Reason for Exam: Pericarditis Patient Location: O HR:116 bpm ECG Measurements Heart Rate 116 AXIS OK 141 P 49 QRSd 94 QRS 57 QT 325 T 55 QTc 452 Conclusion Sinus tachycardia...rate> [address] elevation
== END 2024-09-21 12:21 | disposition home or self-care (01) ==
LOC: DI.CM 12:21
PROVIDERS: PCP Nurse Practitioner Family; Visit Provider Physician Assistant
DX: I31.9 Disease of pericardium, unspecified (principal)
CPT/HCPCS: 93010